=== PATIENT | female | born 1970 | race Caucasian/White ===

== ENCOUNTER 2019-06-14 11:51 | Inpatient (IN) | payer BC ==
[2019-06-14] MEDS ORDERED: AZITHROMYCIN INJ 500 MG VIAL IV ONE (12:00)
[2019-06-14] MEDS ORDERED: OSELTAMIVIR PHOSPHATE 75 MG CAPSULE PO ONE (12:00)
[2019-06-14 12:26] LABS: ABSOLUTE LYMPHOCYTES (AUTO) 0.7 10^3/uL (0.5-4.7); ABSOLUTE MONOCYTES (AUTO) 0.2 10^3/uL (0.1-1.4); ABSOLUTE NEUT (AUTO) 4.3 10^3/uL (1.7-8.2); BASOPHILS % (AUTO) 0.2 % (0-2); HEMATOCRIT 31.3 % (36.0-47.0); HEMOGLOBIN 10.1 g/dL (12.0-15.5); LYMPHOCYTES % (AUTO) 13.6 % (13-45); MEAN CORPUSCULAR HEMOGLOBIN 24.4 pg (27.0-33.4); MEAN CORPUSCULAR HGB CONC 32.3 g/dL (32.0-36.0); MEAN CORPUSCULAR VOLUME 76 fl (80-97); MONOCYTES % (AUTO) 3.9 % (3-13); PLATELET COUNT 236 10^3/uL (150-450); RED BLOOD COUNT 4.13 10^6/uL (3.72-5.28); RED CELL DISTRIBUTION WIDTH 28.1 % (11.5-14.0); SEGMENTED NEUTROPHILS % (AUTO) 82.3 % (42-78); TOTAL CELLS COUNTED % (AUTO) 100 %; VENOUS BLOOD BASE EXCESS -2.7 mmol/L; VENOUS BLOOD HCO3 22.8 mmol/L (20-32); VENOUS BLOOD PCO2 42.8 mmHg (35-63); VENOUS BLOOD PH 7.35 (7.30-7.42); WHITE BLOOD COUNT 5.2 10^3/uL (4.0-10.5)
[2019-06-14 12:38] LABS: INTERNATIONAL RATION (INR) 1.04; PROTHROMBIN TIME 13.6 SEC (11.4-15.4)
[2019-06-14] MEDS ORDERED: NORMAL SALINE 1000 ML 1,000 ML IV ONE (12:42)
[2019-06-14] MEDS ORDERED: NORMAL SALINE 1000 ML 1,000 ML IV PRN (12:42)
[2019-06-14 12:45] LABS: A TYPE INFLUENZA AG NEGATIVE (NEGATIVE); B INFLUENZA AG NEGATIVE (NEGATIVE)
--- NOTE | 2019-06-14 12:45 | RADIOLOGY REPORT (SQ) ---
EXAM DESCRIPTION: CHEST SINGLE VIEW COMPLETED DATE/TIME: 06/14/2019 12:17 pm REASON FOR STUDY: SOB COMPARISON: AP chest 04/28/2012 EXAM PARAMETERS: NUMBER OF VIEWS: One view. TECHNIQUE: Single frontal radiographic view of the chest acquired. RADIATION DOSE: NA LIMITATIONS: Obese patient, portable technique FINDINGS: LUNGS AND PLEURA: There is multifocal airspace disease around the periphery of the right l sean and throughout the left lower lobe. Differential is multifocal pneumonia versus pulmonary edema. No gross pleural effusions or pneumothorax. MEDIASTINUM AND HILAR STRUCTURES: No masses. Contour normal. HEART AND VASCULAR STRUCTURES: No cardiomegaly BONES: No acute findings. HARDWARE: None in the chest. OTHER: No other significant finding. IMPRESSION: Diffuse bilateral airspace disease right greater than left worrisome for pneumonia. Asy mmetric pulmonary edema could mimic this appearance TECHNICAL DOCUMENTATION: JOB ID: [id number] [employer]- All Rights Reserved Reading location - IP/workstation name: [email or web address]
[2019-06-14 12:53] LABS: ALBUMIN 3.3 g/dL (3.5-5.0); ALKALINE PHOSPHATASE 210 U/L (38-126); ANION GAP 10 (5-19); ASPARTATE AMINO TRANSFERASE 70 U/L (14-36); BILIRUBIN,DIRECT 0.2 mg/dL (0.0-0.4); BILIRUBIN,TOTAL 0.4 mg/dL (0.2-1.3); BLOOD UREA NITROGEN 19 mg/dL (7-20); CALCIUM 8.3 mg/dL (8.4-10.2); CARBON DIOXIDE 25 mmol/L (22-30); CHLORIDE 107 mmol/L (98-107); GLUCOSE 87 mg/dL (75-110); POTASSIUM 4.5 mmol/L (3.6-5.0); TOTAL PROTEIN 6.8 g/dL (6.3-8.2)
[2019-06-14 13:00] LABS: TROPONIN I 0.013 ng/mL
[2019-06-14] MEDS ORDERED: CEFTRIAXONE 1 GM/D5W RTU 1 GM/50 ML RTUPB IV ONE (13:00)
[2019-06-14 13:02] LABS: HYPOCHROMASIA 1+; OVALOCYTES 1+; PLATELET COMMENT ADEQUATE; POIKILOCYTOSIS 1+; TOXIC GRANULATION 1+
[2019-06-14] MEDS ORDERED: ONDANSETRON HCL INJ/PF 4 MG/2 ML SDV IV ONE (13:09)
[2019-06-14] MEDS ORDERED: RINGERS SOLUTION,LACTATED 1,000 ML IV ONE (13:09)
--- NOTE | 2019-06-14 13:13 | ER Document Report ---
ED General - General Chief Complaint: Breathing Difficulty Stated Complaint: TROUBLE BREATHING Time Seen by Provider: 06/14/19 11:57 Notes: 48-year-old female history of chronic pain on methadone brought in by EMS for respiratory distress and hypoxia. Been having cold-like symptoms with cough congestion and shortness of breath about a week but worse today she called 911. Found to hypoxic in the 80s. Smokes. Denies a history of CHF COPD. Placed on BiPAP by EMS. - Related Data Allergies/Adverse Reactions: No Known Allergies Allergy (Verified 04/28/12 17:16) Past Medical History - General Information source: Patient - Social History Smoking Status: Current Every Day Smoker Family History: None - Past Medical History Cardiac Medical History: Reports: Hx Hypertension Renal/ Medical History: Reports: Hx Ovarian Cysts Past Surgical History: Reports: Hx Gynecologic Surgery Review of Systems - Review of Systems Notes: REVIEW OF SYSTEMS Cannot obtained: Acuity PHYSICAL EXAMINATION General: Distressed and ill Head: Atraumatic, normocephalic ENT: Mouth normal, oropharynx dry no exudates or tonsillar enlargement Eyes: Conjunctiva normal, pupils equal, lids normal Neck: No JVD, supple, no guarding CVS: Normal rate, regular rhythm, no murmurs Resp: Tachypneic with diminished breath sounds at both bases GI: Nondistended, soft, no tenderness to palpation, no rebound or guarding Ext: No deformities, no edema, normal range of motion in upper and lower ext Back: No CVA or midline TTP Skin: No rash, warm Lymphatic: No lymphadeopathy noted Neuro: Awake responds to loud voice Physical Exam - Vital signs Vitals: Pulse Ox 99 06/14/19 11:57 Course - Re-evaluation Re-evalutation: 06/14/19 15:12 Respiratory distress with hypoxia in the setting of URI symptoms concerning for pneumonia. No signs of heart failure volume overload Transition medially to BiPAP. Chest x-ray shows multifocal infiltrates Cultures obtained Rocephin is a third dose Given IV fluids after BNP came back normal. The patient was observed and initially took her BiPAP mask off complaining of nausea. Given Zofran. Mental status was intact blood gas was good. She was placed back on BiPAP eventually after she became slightly hypoxic on nasal cannula. She was discussed with hospitalist Dr. Fortune for admission to the [facility]. 06/15/19 07:44 Rechecked pt. . Alert, sat wnl on bipap, effort wnl. Sl hypotensive again. will cont fluids and obs. Seen with Dr. Hernandez who will be admitting. - Vital Signs Vital signs: Temp Pulse Resp BP Pulse Ox 98.8 F 18 90/51 L 95 06/14/19 21:39 06/15/19 07:08 06/15/19 07:08 06/15/19 07:08 - Laboratory Result Diagrams: 06/15/19 06:23 06/15/19 06:23 Laboratory results interpreted by me: 06/14/19 06/14/19 06/14/19 11:57 12:03 12:03 Hgb 10.1 L Hct 31.3 L MCV 76 L MCH 24.4 L RDW 28.1 H Seg Neutrophils % 82.3 H Calcium 8.3 L AST 70 H Alkaline Phosphatase 210 H NT-Pro-B Natriuret Pep 228 H Albumin 3.3 L - Diagnostic Test Radiology reviewed: Pending, Image reviewed, Reports reviewed - EKG Interpretation by Me EKG shows normal: Sinus rhythm Rate: Normal Rhythm: NSR Critical Care Note - Critical Care Note Total time excluding time spent on procedures (mins): 32 Comments: The above patient is critically ill. Not including procedures, but including direct re-evaluations, speaking with patient and/or consultants, interpreting results, and documenting, I spent the total amount of minute listed listed above on critical care time Discharge - Discharge Clinical Impression: Bilateral pneumonia Qualifiers: Pneumonia type: due to unspecified organism Lung location: unspecified part of lung Qualified Code(s): J18.9 - Pneumonia, unspecified organism Condition: Critical Disposition: ADMITTED INPATIENT Admitting Provider: Micki (Hospitalist) Unit Admitted: [facility]
[2019-06-14] MEDS ORDERED: ZOLPIDEM TARTRATE 5 MG TABLET PO PRN (15:31)
[2019-06-14] MEDS ORDERED: IPRATROPIUM/ALBUTEROL 0.5-2.5 MG/3 ML AMPUL NEB PRN (15:31)
--- NOTE | 2019-06-14 15:55 | PDOC H&P ---
History of Present Illness Admission Date/PCP: 06/14/19 13:55 JS ANDERSON PA-C Patient complains of: Difficulty breathing or shortness of breath as well as generalized malaise for the last 3 days. History of Present Illness: LUISES HERNANDEZ is a 48 year old female Patient presents to the emergency room with complaints of difficulty breathing and shortness of breath. She states she had been having some congestion-like symptoms associated with cough, shortness of breath so she called 911. She was found to be hypoxic with oxygen saturation in the 80s. She was placed on BiPAP by EMS and continues on BiPAP at the time of my evaluation. She denies any fe carolyn or chest pain. She denies any nausea vomiting rotations or any other pertinent symptoms. He does have a history of smoking, about a pack a day and does use methadone for chronic pain. She denies history of IV drug abuse Past Medical History Cardiac Medical History: Reports: Hypertension Past Surgical History Past Surgical History: Reports: None Social History Information Source: Patient Lives with: Family Smoking Status: Current Every Day Smoker Electronic Cigarette use?: No Frequency of Alcohol Use: Occasional Drugs: Methadone - Advance Directive Resuscitation Status: Full Code Family History Family History: None Parental Family History Reviewed: Yes Children Family History Reviewed: Yes Sibling(s) Family History Reviewed.: Yes Medication/Allergy Home Medications: Methadone HCl [Dolophine 10 mg Tablet] 89 mg PO DAILY 06/14/19 Allergies/Adverse Reactions: No Known Allergies Allergy (Verified 04/28/12 17:16) Review of Systems Constitutional: PRESENT: fatigue, weakness Cardiovascular: PRESENT: dyspnea on exertion. ABSENT: chest pain Respiratory: PRESENT: cough, dyspnea Physical Exam Vital Signs: Temp Pulse Resp BP Pulse Ox 19 118/77 99 06/14/19 14:05 06/14/19 13:02 06/14/19 14:05 Intake & Output 06/13/19 06/14/19 06/15/19 06:59 06:59 06:59 Intake Total 50 Balance 50 Weight 108.499 kg General appearance: PRESENT: no acute distress, well-developed Head exam: PRESENT: atraumatic Neck exam: PRESENT: full ROM. ABSENT: JVD, tenderness Respiratory exam: PRESENT: decreased breath sounds, unlabored. ABSENT: rhonchi, tachypnea, wheezes GI/Abdominal exam: PRESENT: normal bowel sounds, soft. ABSENT: tenderness Musculoskeletal exam: PRESENT: ambulatory Neurological exam: PRESENT: alert, awake, oriented to time, oriented to situation, CN II-XII grossly intact Results Laboratory Results: 06/14/19 12:03 06/14/19 11:57 06/14/19 06/14/19 06/14/19 11:57 12:03 12:03 WBC 5.2 RBC 4.13 Hgb 10.1 L Hct 31.3 L MCV 76 L MCH 24.4 L MCHC 32.3 RDW 28.1 H Plt Count 236 Seg Neutrophils % 82.3 H VBG pH 7.35 VBG pCO2 42.8 VBG HCO3 22.8 VBG Base Excess -2.7 Sodium 141.8 Potassium 4.5 Chloride 107 Carbon Dioxide 25 Anion Gap 10 BUN 19 Creatinine 0.72 Est GFR ( Amer) > 60 Glucose 87 Lactic Acid Calcium 8.3 L Total Bilirubin 0.4 AST 70 H Alkaline Phosphatase 210 H Total Protein 6.8 Albumin 3.3 L 06/14/19 12:03 WBC RBC Hgb Hct MCV MCH MCHC RDW Plt Count Seg Neutrophils % VBG pH VBG pCO2 VBG HCO3 VBG Base Excess Sodium Potassium Chloride Carbon Dioxide Anion Gap BUN Creatinine Est GFR ( Amer) Glucose Lactic Acid 1.7 Calcium Total Bilirubin AST Alkaline Phosphatase Total Protein Albumin 06/14/19 12:03 Troponin I 0.013 NT-Pro-B Natriuret Pep 228 H Impressions: Chest X-Ray 06/14/19 00:00 IMPRESSION: Diffuse bilateral airspace disease right greater than left worrisome for pneumonia. Asymmetric pulmonary edema could mimic this appearance Assessment and Plan - Diagnosis (1) Acute hypoxemic respiratory failure Is this a current diagnosis for this admission?: Yes Plan: Secondary to underlying pneumonia. Chest x-ray shows bilateral airspace disease. This is presumed to be pneumonitis likely atypical. Patient remains on BiPAP. We will continue with current trend (2) Methadone use Is this a current diagnosis for this admission?: Yes Plan: Patient has a history of methadone use. Is a history of prior drug abuse. We will continue with methadone (3) Bilateral pneumonia Qualifiers: Pneumonia type: due to unspecified organism Lung location: unspecified part of lung Qualified Code(s): J18.9 - Pneumonia, unspecified organism Is this a current diagnosis for this admission?: Yes Plan: Lateral airspace disease as per chest x-ray however patient symptoms seem to be out of proportion to her chest x-ray findings. We will go ahead and obtain a CT of the chest for further evaluation - Plan Summary Summary: Lactic acid level is 1.7, and BNP is 228, troponin is negative, and EKG shows a normal sinus rhythm with no acute changes. The scan of the chest will be obtained for further evaluation and further interventions are found will depend on hospital course. - Time Time Spent with patient: 25-34 minutes Medications reviewed and adjusted accordingly: Yes Anticipated discharge: Home Within: within 72 hours - Inpatient Certification Based on my medical assessment, after consideration of the patient's comorbiditi es, presenting symptoms, or acuity I expect that the services needed warrant INPATIENT care.: Yes I certify that my determination is in accordance with my understanding of [facility]'s requirements for reasonable and necessary INPATIENT services [42 CFR 412.3e].: Yes Medical Necessity: Need for IV Antibiotics, Risk of Diagnosis Which Will Require Inpatient Eval/Care/Monitoring
[2019-06-14] MEDS: NORMAL SALINE 1000 ML 1,000 ML IV PRN (18:38)
--- NOTE | 2019-06-14 19:38 | EKG REPORT ---
SEVERITY:- BORDERLINE ECG - SINUS RHYTHM BORDERLINE T ABNORMALITIES, ANTERIOR LEADS : Confirmed by: Ro Pardo MD 14-Jun-2019 19:37:40
[2019-06-14] MEDS: ONDANSETRON HCL INJ/PF 4 MG/2 ML SDV IV PRN (21:49)
[2019-06-14] MEDS: FAMOTIDINE 20 MG TABLET PO SCH (22:32)
[2019-06-14] MEDS: ACETAMINOPHEN 325 MG TABLET PO PRN (22:32)
[2019-06-14] MEDS: GUAIFENESIN 600 MG TABLET.SA PO SCH (22:32)
[2019-06-15] MEDS: NORMAL SALINE 1000 ML 1,000 ML IV PRN ×2 (04:16→14:10)
[2019-06-15 06:53] LABS: ANION GAP 9 (5-19); BLOOD UREA NITROGEN 17 mg/dL (7-20); CALCIUM 7.9 mg/dL (8.4-10.2); CARBON DIOXIDE 25 mmol/L (22-30); CHLORIDE 110 mmol/L (98-107); POTASSIUM 4.3 mmol/L (3.6-5.0)
[2019-06-15 06:54] LABS: ABSOLUTE LYMPHOCYTES (AUTO) 0.7 10^3/uL (0.5-4.7); ABSOLUTE MONOCYTES (AUTO) 0.2 10^3/uL (0.1-1.4); ABSOLUTE NEUT (AUTO) 2.9 10^3/uL (1.7-8.2); BASOPHILS % (AUTO) 0.3 % (0-2); EOSINOPHILS % (AUTO) 0.3 % (0-6); GLUCOSE 57 mg/dL (75-110); HEMATOCRIT 27.3 % (36.0-47.0); HEMOGLOBIN 8.7 g/dL (12.0-15.5); MEAN CORPUSCULAR HEMOGLOBIN 24.7 pg (27.0-33.4); MEAN CORPUSCULAR VOLUME 77 fl (80-97); MONOCYTES % (AUTO) 6.3 % (3-13); PLATELET COUNT 226 10^3/uL (150-450); RED BLOOD COUNT 3.52 10^6/uL (3.72-5.28); RED CELL DISTRIBUTION WIDTH 28.7 % (11.5-14.0); SEGMENTED NEUTROPHILS % (AUTO) 74.1 % (42-78); TOTAL CELLS COUNTED % (AUTO) 100 %; WHITE BLOOD COUNT 3.9 10^3/uL (4.0-10.5)
[2019-06-15] MEDS ORDERED: DEXTROSE 50%-WATER 25 GM/50 ML DISP.SYRIN IV ONE (06:59)
[2019-06-15 07:39] LABS: ANISOCYTOSIS 3+; BURR CELLS 1+; HYPOCHROMASIA SLIGHT; OVALOCYTES 1+; POIKILOCYTOSIS 2+; POLYCHROMASIA SLIGHT; SCHISTOCYTES SLIGHT; TEAR DROP CELLS SLIGHT; TOXIC GRANULATION SLIGHT
[2019-06-15 07:40] LABS: PLATELET COMMENT ADEQUATE
[2019-06-15] MEDS: ONDANSETRON HCL INJ/PF 4 MG/2 ML SDV IV PRN (08:59)
[2019-06-15] MEDS ORDERED: METHADONE HCL 10 MG TABLET PO SCH (10:00)
[2019-06-15] MEDS ORDERED: CEFTRIAXONE 1 GM/D5W RTU 1 GM/50 ML RTUPB IV SCH (10:00)
[2019-06-15] MEDS: METHADONE HCL 10 MG TABLET PO SCH (10:05)
[2019-06-15] MEDS: GUAIFENESIN 600 MG TABLET.SA PO SCH ×2 (10:05→22:40)
[2019-06-15] MEDS: FAMOTIDINE 20 MG TABLET PO SCH ×2 (10:06→22:40)
[2019-06-15] MEDS: DOCUSATE SODIUM 100 MG CAPSULE PO SCH (10:06)
[2019-06-15] MEDS: ENOXAPARIN SODIUM INJ 40 MG/0.4 ML DISP.SYRIN SUBCUT SCH (10:07)
--- NOTE | 2019-06-15 10:22 | PDOC PROGRESS REPORT ---
Subjective Progress Note for:: 06/15/19 Subjective:: Patient admitted on June 14 with acute hypoxemic respiratory failure. She still is very hypoxemic. She remains on BiPAP apparently though she has had difficulty using the BiPAP. She remains somewhat hypotensive. She denies any chest pain nausea vomiting. She remains in the emergency department awaiting transfer to [facility] however after further evaluation today I think this patient will benefit from a higher level of care, that is ICU as she remains hypotensive as well as hypoxemic. Attempt to remove her BiPAP today showed a drop in her oxygen saturation to the 70s. A CT scan of the chest had been ordered yesterday however somehow this was not done. I have reordered CTA instead due to the profund hypoxemia. No indication of DVT clinically Reason For Visit: ACUTE HYPOXEMIC RESPIRATORY FAILURE, COMMUNITY Physical Exam Vital Signs: Temp Pulse Resp BP Pulse Ox 98.8 F 66 16 104/71 91 L 06/14/19 21:39 06/15/19 08:02 06/15/19 09:31 06/15/19 09:31 06/15/19 09:31 Intake & Output 06/14/19 06/15/19 06/16/19 06:59 06:59 06:59 Intake Total 3013 Output Total 200 Balance 2813 Weight 108.499 kg General appearance: PRESENT: no acute distress, cooperative, morbidly obese, obese Head exam: PRESENT: atraumatic Respiratory exam: PRESENT: decreased breath sounds, unlabored. ABSENT: wheezes GI/Abdominal exam: PRESENT: soft. ABSENT: tenderness Extremities exam: ABSENT: calf tenderness, joint swelling Neurological exam: PRESENT: alert, awake, oriented to person, oriented to place, oriented to time Psychiatric exam: PRESENT: anxious Results Laboratory Results: 06/15/19 06:23 06/15/19 06:23 06/14/19 06/14/19 06/14/19 11:57 12:03 12:03 WBC 5.2 RBC 4.13 Hgb 10.1 L Hct 31.3 L MCV 76 L MCH 24.4 L MCHC 32.3 RDW 28.1 H Plt Count 236 Seg Neutrophils % 82.3 H VBG pH 7.35 VBG pCO2 42.8 VBG HCO3 22.8 VBG Base Excess -2.7 Sodium 141.8 Potassium 4.5 Chloride 107 Carbon Dioxide 25 Anion Gap 10 BUN 19 Creatinine 0.72 Est GFR ( Amer) > 60 Glucose 87 Lactic Acid Calcium 8.3 L Total Bilirubin 0.4 AST 70 H Alkaline Phosphatase 210 H Total Protein 6.8 Albumin 3.3 L 06/14/19 06/14/19 06/14/19 12:03 15:44 19:00 WBC RBC Hgb Hct MCV MCH MCHC RDW Plt Count Seg Neutrophils % VBG pH VBG pCO2 VBG HCO3 VBG Base Excess Sodium Potassium Chloride Carbon Dioxide Anion Gap BUN Creatinine Est GFR ( Amer) Glucose Lactic Acid 1.7 0.8 0.8 Calcium Total Bilirubin AST Alkaline Phosphatase Total Protein Albumin 06/15/19 06/15/19 06:23 06:23 WBC 3.9 L RBC 3.52 L Hgb 8.7 L Hct 27.3 L MCV 77 L MCH 24.7 L MCHC 32.0 RDW 28.7 H Plt Count 226 Seg Neutrophils % 74.1 VBG pH VBG pCO2 VBG HCO3 VBG Base Excess Sodium 143.7 Potassium 4.3 Chloride 110 H Carbon Dioxide 25 Anion Gap 9 BUN 17 Creatinine 0.62 Est GFR ( Amer) > 60 Glucose 57 L Lactic Acid Calcium 7.9 L Total Bilirubin AST Alkaline Phosphatase Total Protein Albumin 06/14/19 12:03 Troponin I 0.013 NT-Pro-B Natriuret Pep 228 H Impressions: Chest X-Ray 06/14/19 00:00 IMPRESSION: Diffuse bilateral airspace disease right greater than left worrisome for pneumonia. Asymmetric pulmonary edema could mimic this appearance Assessment and Plan - Diagnosis (1) Acute hypoxemic respiratory failure Is this a current diagnosis for this admission?: Yes Plan: Patient remains hypoxemic, precise etiology is not clear. We will obtain a CTA to rule out pulmonary embolism. The chest x-ray does suggest bilateral pneumonia however patient's symptoms seem to be out of proportion to the chest x-ray findings. I also think patient will benefit from an ICU stay under the care of the unix systems administrator and so the bed request has been changed to ICU (2) Methadone use Is this a current diagnosis for this admission?: Yes Plan: For chronic pain we may have to hold the methadone for now given her respiratory status (3) Bilateral pneumonia Qualifiers: Pneumonia type: due to unspecified organism Lung location: unspecified part of lung Qualified Code(s): J18.9 - Pneumonia, unspecified organism Is this a current diagnosis for this admission?: Yes Plan: Not really convinced that her symptoms are purely due to pneumonia however we will continue with the current antibiotics. Will obtain a CTA to rule out PE and will obtain an echocardiogram also for further evaluation - Plan Summary Summary: Lactic acid level is 1.7, and BNP is 228, troponin is negative, and EKG shows a normal sinus rhythm with no acute changes. Transfer to ICU suggested for better management - Time Time Spent with patient: 25-34 minutes Total Critical Time (Minutes): 15 Medications reviewed and adjusted accordingly: Yes
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
[2019-06-15 11:45] LABS: ARTERIAL BLOOD BASE EXCESS -2.7 mmol/L; ARTERIAL BLOOD H2CO3 1.23 mmol/L (1.05-1.35); ARTERIAL BLOOD HCO3 22.6 mmol/L (20-24); ARTERIAL BLOOD O2 SATURATION 89.7 % (94-98); ARTERIAL BLOOD PH 7.36 (7.35-7.45); ARTERIAL BLOOD PO2 59.2 mmHg (80-100); ARTERIAL BLOOD TOTAL CO2 23.8 mmol/L (21-25)
[2019-06-15 11:46] LABS: ARTERIAL BLOOD FIO2 65%
[2019-06-15] MEDS: LORAZEPAM INJ 2 MG/1 ML VIAL IV PRN (12:19)
--- NOTE | 2019-06-15 13:10 | RADIOLOGY REPORT (SQ) ---
EXAM DESCRIPTION: CTA CHEST COMPLETED DATE/TIME: 06/15/2019 12:45 pm REASON FOR STUDY: Acute hypoxemic Respiratory Failure COMPARISON: Same day radiograph TECHNIQUE: CT scan of the chest performed using helical scanning technique with dynamic intravenous contrast injection. Images reviewed with lung, soft tissue and bone windows. Reconstructed coronal and sagittal MPR images reviewed. Additional 3 dimensional post-processing performed to develop Maximal Intensity Projection images (NC P). All images stored on PACS. All CT scanners at this facility use dose modulation, iterative reconstruction, and/or weight based d osing when appropriate to reduce radiation dose to as low as reasonably achievable (ALARA). [facility]: Dose Right [facility]: CareDose [facility]: Dose Right [facility]: Teradose 4D [facility]: [facility] CONTRAST TYPE AND DOSE: contrast/concentration: Isovue 350.00 mg/ml; Total Contrast Delivered: 75.0 ml; Total Saline Delivered: 70.0 ml Contrast bolus optimized for the pulmonary arteries. Not diagnostic for the aorta. RENAL FUNCTION: Creatinine 0.62 RADIATION DOSE: CT Rad equipment meets quality standard of care and radiation dose reduction techniq ues were employed. CTDIvol: 34.7 - 66.1 mGy. DLP: 1019 mGy-cm. . LIMITATIONS: None. FINDINGS: LUNGS AND PLEURA: There is multifocal consolidation and ground-glass attenuation greatest within the bilateral lower lobes. No large pleural effusion. No pneumothorax. AORTA AND GREAT VESSELS: No aneurysm. Contrast bolus not optimized for the aorta. HEART: No pericardial effusion. No significant coronary artery calcifications. PULMONARY ARTERIES: No emboli visualized in the main pulmonary arteries or the segmental branches. HILAR AND MEDIASTINAL STRUCTURES: No identified masses or abnormal nodes. HARDWARE: None in the chest. Cholecystectomy clips. UPPER ABDOMEN: No significant findings. Limited exam. THYROID AND OTHER SOFT TISSUES: No masses. No adenopathy. BONES: No acute or significant finding. 3D MIPS: Confirm above findings. OTHER: No other significant finding. IMPRESSION: 1. Multifocal consolidation and ground-glass opacities, greatest within the bilateral l ower lobes suggestive of multifocal pneumonia. No significant effusion. 2. No pulmonary embolus. COMMENT: Quality ID # [id number]: Final reports with documentation of one or more dose reduction techniques (e.g., Automated exposure control, adjustment of the mA and/or kV according to patient size, use of iterative reconstruction technique) TECHNICAL DOCUMENTATION: JOB ID: [id number] [employer]- [employer]- All Rights Reserved Reading location - IP/workstation name: [email or web address]
[2019-06-15] MEDS: AZITHROMYCIN 500 MG in DEXTROSE 5%-WATER 250 ML IV SCH (14:10)
[2019-06-15 21:26] LABS: APPEARANCE,URINE CLEAR; BILIRUBIN,URINE NEGATIVE (NEGATIVE); COLOR,URINE YELLOW; GLUCOSE, URINE NEGATIVE (NEGATIVE); KETONES,URINE 20 mg/dL (NEGATIVE); PROTEIN,URINE 30 mg/dL (NEGATIVE)
[2019-06-15 21:39] LABS: URINE AMPHETAMINES SCREEN NEGATIVE; URINE BARBITURATES SCREEN NEGATIVE; URINE BENZODIAZEPINES SCREEN NEGATIVE; URINE COCAINE SCREEN NEGATIVE; URINE MARIJUANA (THC) SCREEN NEGATIVE; URINE PHENCYCLIDINE SCREEN NEGATIVE
[2019-06-15 22:18] LABS: URINE METHADONE SCREEN UNCONFIRMED POSITIVE
[2019-06-16] MEDS: LORAZEPAM INJ 2 MG/1 ML VIAL IV PRN ×2 (02:52→19:56)
[2019-06-16] MEDS: ACETAMINOPHEN 325 MG TABLET PO PRN (02:52)
[2019-06-16] MEDS: NORMAL SALINE 1000 ML 1,000 ML IV PRN (03:07)
[2019-06-16 07:12] LABS: ABSOLUTE LYMPHOCYTES (AUTO) 0.6 10^3/uL (0.5-4.7); ABSOLUTE MONOCYTES (AUTO) 0.4 10^3/uL (0.1-1.4); ABSOLUTE NEUT (AUTO) 4.7 10^3/uL (1.7-8.2); BASOPHILS % (AUTO) 0.1 % (0-2); EOSINOPHILS % (AUTO) 0.1 % (0-6); HEMOGLOBIN 8.1 g/dL (12.0-15.5); LYMPHOCYTES % (AUTO) 9.7 % (13-45); MEAN CORPUSCULAR HEMOGLOBIN 24.5 pg (27.0-33.4); MEAN CORPUSCULAR HGB CONC 32.2 g/dL (32.0-36.0); MEAN CORPUSCULAR VOLUME 76 fl (80-97); MONOCYTES % (AUTO) 7.9 % (3-13); PLATELET COUNT 240 10^3/uL (150-450); RED BLOOD COUNT 3.29 10^6/uL (3.72-5.28); RED CELL DISTRIBUTION WIDTH 28.7 % (11.5-14.0); SEGMENTED NEUTROPHILS % (AUTO) 82.2 % (42-78); TOTAL CELLS COUNTED % (AUTO) 100 %; WHITE BLOOD COUNT 5.7 10^3/uL (4.0-10.5)
[2019-06-16 07:25] LABS: ANION GAP 7 (5-19); BLOOD UREA NITROGEN 12 mg/dL (7-20); CALCIUM 7.8 mg/dL (8.4-10.2); CARBON DIOXIDE 23 mmol/L (22-30); CHLORIDE 112 mmol/L (98-107); POTASSIUM 3.9 mmol/L (3.6-5.0)
[2019-06-16 07:28] LABS: GLUCOSE 56 mg/dL (75-110)
[2019-06-16] MEDS ORDERED: DEXTROSE 50%-WATER 25 GM/50 ML DISP.SYRIN IV ONE ×2 (07:31→08:00)
[2019-06-16] MEDS ORDERED: DEXTROSE 5%-NORMAL SALINE 1,000 ML IV PRN ×2 (08:11→12:35)
[2019-06-16 08:13] LABS: ANISOCYTOSIS 4+; HYPOCHROMASIA SLIGHT; OVALOCYTES 1+; PLATELET COMMENT ADEQUATE; POIKILOCYTOSIS 1+; TEAR DROP CELLS SLIGHT
[2019-06-16 08:55] LABS: ARTERIAL BLOOD BASE EXCESS -1.6 mmol/L; ARTERIAL BLOOD FIO2 75%; ARTERIAL BLOOD HCO3 22.7 mmol/L (20-24); ARTERIAL BLOOD O2 SATURATION 94.2 % (94-98); ARTERIAL BLOOD PCO2 36.7 mmHg (35-45); ARTERIAL BLOOD PH 7.41 (7.35-7.45); ARTERIAL BLOOD PO2 69.4 mmHg (80-100); ARTERIAL BLOOD TOTAL CO2 23.9 mmol/L (21-25)
[2019-06-16] MEDS ORDERED: CEFEPIME 2 GM/D5W RTU 2 GM/50 ML RTUPB IV SCH (10:00)
[2019-06-16] MEDS: METHADONE HCL 10 MG TABLET PO SCH (11:11)
[2019-06-16] MEDS: DOCUSATE SODIUM 100 MG CAPSULE PO SCH (11:11)
[2019-06-16] MEDS: GUAIFENESIN 600 MG TABLET.SA PO SCH ×2 (11:12→23:00)
[2019-06-16] MEDS: FAMOTIDINE 20 MG TABLET PO SCH ×2 (11:12→23:02)
[2019-06-16] MEDS: ENOXAPARIN SODIUM INJ 40 MG/0.4 ML DISP.SYRIN SUBCUT SCH (11:13)
[2019-06-16] MEDS: CEFEPIME HCL 2 GM in DEXTROSE 5%-WATER 50 ML IV SCH ×2 (11:13→23:06)
[2019-06-16] MEDS: AZITHROMYCIN 500 MG in DEXTROSE 5%-WATER 250 ML IV SCH (12:05)
--- NOTE | 2019-06-16 13:18 | PDOC PROGRESS REPORT ---
Subjective Progress Note for:: 06/16/19 Subjective:: Patient continues to be hypoxemic and she is currently on 75% FiO2 on BiPAP. She is somewhat tachypneic. She actually is more responsive today and was able to converse with me through her mask. She states that she is hungry. He thinks her breathing may be better however attempts to remove mask has resulted in desaturation down to 70%. CT scan yesterday did confirm multifocal pneumonia however no further evidence of any acute illness. There is no PE, pleural effusion or any other pertinent findings. Reason For Visit: ACUTE HYPOXEMIC RESPIRATORY FAILURE, COMMUNITY Physical Exam Vital Signs: Temp Pulse Resp BP Pulse Ox 98.4 F 86 28 H 103/63 92 06/16/19 11:59 06/16/19 11:59 06/16/19 12:06 06/16/19 11:59 06/16/19 12:06 Intake & Output 06/15/19 06/16/19 06/17/19 06:59 06:59 06:59 Intake Total 3013 2540 Output Total 200 700 Balance 2813 1840 Weight 108.499 kg 110.5 kg General appearance: PRESENT: no acute distress, well-developed, well-nourished, other - BiPAP mask Head exam: PRESENT: atraumatic, normocephalic Eye exam: PRESENT: conjunctiva pink, EOMI, PERRLA. ABSENT: scleral icterus Ear exam: PRESENT: normal external ear exam Neck exam: ABSENT: carotid bruit, JVD, lymphadenopathy, thyromegaly Respiratory exam: PRESENT: decreased breath sounds, tachypnea. ABSENT: rales, rhonchi, wheezes Cardiovascular exam: PRESENT: RRR, +S1, +S2. ABSENT: diastolic murmur, rubs, systolic murmur Pulses: PRESENT: normal dorsalis pedis pul Vascular exam: PRESENT: normal capillary refill GI/Abdominal exam: PRESENT: normal bowel sounds, soft. ABSENT: distended, guarding, mass, organolmegaly, rebound, tenderness Rectal exam: PRESENT: deferred Extremities exam: PRESENT: full ROM. ABSENT: calf tenderness, clubbing, pedal edema Neurological exam: PRESENT: alert, awake, oriented to person, oriented to place, oriented to situation. ABSENT: motor sensory deficit Psychiatric exam: ABSENT: homicidal ideation, suicidal ideation Skin exam: PRESENT: dry, intact, warm. ABSENT: cyanosis, rash Results Laboratory Results: 06/16/19 05:55 06/16/19 05:55 06/15/19 06/16/19 06/16/19 20:55 05:55 05:55 WBC 5.7 RBC 3.29 L Hgb 8.1 L Hct 25.0 L MCV 76 L MCH 24.5 L MCHC 32.2 RDW 28.7 H Plt Count 240 Seg Neutrophils % 82.2 H Carbonic Acid HCO3/H2CO3 Ratio ABG pH ABG pCO2 ABG pO2 ABG HCO3 ABG O2 Saturation ABG Base Excess FiO2 Sodium 141.9 Potassium 3.9 Chloride 112 H Carbon Dioxide 23 Anion Gap 7 BUN 12 Creatinine 0.48 L Est GFR ( Amer) > 60 Glucose 56 L Calcium 7.8 L Urine Color YELLOW Urine Appearance CLEAR Urine pH 5.0 Ur Specific [place] 1.040 Urine Protein 30 H Urine Glucose (UA) NEGATIVE Urine Ketones 20 H Urine Blood MODERATE H Urine RBC (Auto) >182 06/16/19 08:38 WBC RBC Hgb Hct MCV MCH MCHC RDW Plt Count Seg Neutrophils % Carbonic Acid 1.10 HCO3/H2CO3 Ratio 20:1 ABG pH 7.41 ABG pCO2 36.7 ABG pO2 69.4 L ABG HCO3 22.7 ABG O2 Saturation 94.2 ABG Base Excess -1.6 FiO2 75% Sodium Potassium Chloride Carbon Dioxide Anion Gap BUN Creatinine Est GFR ( Amer) Glucose Calcium Urine Color Urine Appearance Urine pH Ur Specific [place] Urine Protein Urine Glucose (UA) Urine Ketones Urine Blood Urine RBC (Auto) 06/14/19 12:03 Troponin I 0.013 NT-Pro-B Natriuret Pep 228 H Impressions: Chest X-Ray 06/14/19 00:00 IMPRESSION: Diffuse bilateral airspace disease right greater than left worrisome for pneumonia. Asymmetric pulmonary edema could mimic this appearance Chest/Abdomen CTA 06/15/19 00:00 IMPRESSION: 1. Multifocal consolidation and ground-glass opacities, greatest within the bilateral lower lobes suggestive of multifocal pneumonia. No significant effusion. 2. No pulmonary embolus. Assessment and Plan - Diagnosis (1) Acute hypoxemic respiratory failure Is this a current diagnosis for this admission?: Yes Plan: Patient's respiratory status remains to be pretty tenuous. She is currently on 75% FiO2 on BiPAP. ABG done actually is. Benign however she is still PO2 of 69% on 75% FiO2. I did consult network pricing consultant. He suggests that patient should be transferred to ICU for close monitoring. I did make him aware I had consulted horse race timer on June 15 and he declined to admit this patient to ICU. After talking to Dr. Pérez I called the horse race timer again and made him aware of patient's status. I made my opinion clear that this patient belongs to ICU so that she can be closely monitored by horse race timer in the intensive care unit. This is also Dr. 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 No significant effusions. Antibiotics was changed to cefepime this morning. We will also continue with Zithromax for atypical coverage pending further evaluation. Patient also noted to be anemic this morning. Hemoglobin on admission was 10.1 and is currently 8.1 she is not acidotic or alkalotic and pH on ABG was 7.4. I believe patient needs critical care management either in this hospital or somewhere else - Plan Summary Summary: Lactic acid level is 1.7, and BNP is 228, troponin is negative, and EKG shows a normal sinus rhythm with no acute changes. Transfer to ICU suggested for better management - Time Time Spent with patient: 25-34 minutes Medications reviewed and adjusted accordingly: Yes
[2019-06-16 14:09] LABS: HEMATOCRIT 26.2 % (36.0-47.0); HEMOGLOBIN 8.4 g/dL (12.0-15.5); MEAN CORPUSCULAR HEMOGLOBIN 24.5 pg (27.0-33.4); MEAN CORPUSCULAR HGB CONC 32.1 g/dL (32.0-36.0); MEAN CORPUSCULAR VOLUME 76 fl (80-97); PLATELET COUNT 249 10^3/uL (150-450); RED BLOOD COUNT 3.42 10^6/uL (3.72-5.28); RED CELL DISTRIBUTION WIDTH 27.9 % (11.5-14.0); WHITE BLOOD COUNT 7.2 10^3/uL (4.0-10.5)
[2019-06-16 14:19] LABS: ALBUMIN 2.7 g/dL (3.5-5.0); ALKALINE PHOSPHATASE 183 U/L (38-126); ANION GAP 7 (5-19); ASPARTATE AMINO TRANSFERASE 53 U/L (14-36); BILIRUBIN,DIRECT 0.3 mg/dL (0.0-0.4); BILIRUBIN,TOTAL 0.3 mg/dL (0.2-1.3); BLOOD UREA NITROGEN 12 mg/dL (7-20); CALCIUM 7.9 mg/dL (8.4-10.2); CARBON DIOXIDE 26 mmol/L (22-30); CHLORIDE 110 mmol/L (98-107); GLUCOSE 84 mg/dL (75-110); POTASSIUM 3.6 mmol/L (3.6-5.0); TOTAL PROTEIN 6.3 g/dL (6.3-8.2)
[2019-06-16 14:37] LABS: ABSOLUTE LYMPHOCYTES# (MANUAL) 0.6 10^3/uL (0.5-4.7); ABSOLUTE MONOCYTES # (MANUAL) 0.4 10^3/uL (0.1-1.4); BASOPHILS % (MANUAL) 0 % (0-2); EOSINOPHILS % (MANUAL) 0 % (0-6); LYMPHOCYTES % (MANUAL) 9 % (13-45); MONOCYTES % (MANUAL) 6 % (3-13); SEGMENTED NEUTROPHILS % (MAN) 85 % (42-78); TOTAL CELLS COUNTED 100
[2019-06-16 14:39] LABS: ANISOCYTOSIS 3+; HYPOCHROMASIA SLIGHT; PLATELET COMMENT ADEQUATE
--- NOTE | 2019-06-16 16:40 | PDOC CRITICAL CARE PROG REPORT ---
General Date:: 06/16/19 Hospital Day:: 2 Resuscitation Status: Full Code Events in the past 12 to 24 Hours:: Called to see patient by Dr. Sweet for respiratory distress and increasing BiPAP requirements. I saw the patient in the emergency department yesterday, where she was on BiPAP, albeit with ineffective settings. Settings were adjusted at the bedside. The patient was subsequently admitted to room 306. At the time of clinical interview today, the patient is on BiPAP 16/8, FiO2 75%. She is awake and alert and reports that she "feels better" than yesterday. Notation is made of an ABG that was drawn at 8:38 this mornin.41/37/69 on BiPAP 10/8, FiO2 75%. Review of systems relevant to events:: Respiratory: Still on BiPAP. Patient reports that she feels "better" than yesterday. Physical Exam Vital Signs: Temp Pulse Resp BP Pulse Ox 98.4 F 86 20 103/63 93 06/16/19 11:59 06/16/19 11:59 06/16/19 15:32 06/16/19 11:59 06/16/19 15:32 Pulse Oximeter Continuous Start: 06/16/19 13:03 Freq: RTQ4 Status: Active Protocol: Document 06/16/19 15:32 LDA (Rec: 06/16/19 15:34 LDA [id number]) Pulse Oximetry Assessment Oxygen Saturation (92-100) 93 Oxygen Delivery Method CPAP Fraction of Inspired Oxygen (FIO2) 65 Equipment Usage Initial Set Up Continuous Pulse Oximeter 24 Hour Charge Charge Now Continuous SpO2 Machine # [id number] Intake & Output 06/15/19 06/16/19 06/17/19 06:59 06:59 06:59 Intake Total 3013 2540 Output Total 200 700 Balance 2813 1840 Weight 108.499 kg 110.5 kg 110.5 kg Weight/Height Weight 110.5 kg Height 1.55 m General appearance: PRESENT: no acute distress, cooperative, obese, other - On BiPAP Respiratory exam: PRESENT: crackles, decreased breath sounds, rales, symmetrical Laboratory/Radiographs Laboratory Results: 06/16/19 13:27 06/16/19 13:27 06/15/19 06/16/19 06/16/19 20:55 05:55 05:55 WBC 5.7 RBC 3.29 L Hgb 8.1 L Hct 25.0 L MCV 76 L MCH 24.5 L MCHC 32.2 RDW 28.7 H Plt Count 240 Seg Neutrophils % 82.2 H Carbonic Acid HCO3/H2CO3 Ratio ABG pH ABG pCO2 ABG pO2 ABG HCO3 ABG O2 Saturation ABG Base Excess FiO2 Sodium 141.9 Potassium 3.9 Chloride 112 H Carbon Dioxide 23 Anion Gap 7 BUN 12 Creatinine 0.48 L Est GFR ( Amer) > 60 Glucose 56 L Calcium 7.8 L Total Bilirubin AST Alkaline Phosphatase Total Protein Albumin Urine Color YELLOW Urine Appearance CLEAR Urine pH 5.0 Ur Specific [place] 1.040 Urine Protein 30 H Urine Glucose (UA) NEGATIVE Urine Ketones 20 H Urine Blood MODERATE H Urine RBC (Auto) >182 06/16/19 06/16/19 06/16/19 08:38 13:27 13:27 WBC 7.2 RBC 3.42 L Hgb 8.4 L Hct 26.2 L MCV 76 L MCH 24.5 L MCHC 32.1 RDW 27.9 H Plt Count 249 Seg Neutrophils % Not Reportable Carbonic Acid 1.10 HCO3/H2CO3 Ratio 20:1 ABG pH 7.41 ABG pCO2 36.7 ABG pO2 69.4 L ABG HCO3 22.7 ABG O2 Saturation 94.2 ABG Base Excess -1.6 FiO2 75% Sodium 143.2 Potassium 3.6 Chloride 110 H Carbon Dioxide 26 Anion Gap 7 BUN 12 Creatinine 0.52 Est GFR ( Amer) > 60 Glucose 84 Calcium 7.9 L Total Bilirubin 0.3 AST 53 H Alkaline Phosphatase 183 H Total Protein 6.3 Albumin 2.7 L Urine Color Urine Appearance Urine pH Ur Specific [place] Urine Protein Urine Glucose (UA) Urine Ketones Urine Blood Urine RBC (Auto) 06/14/19 12:03 Troponin I 0.013 NT-Pro-B Natriuret Pep 228 H Impressions: Chest X-Ray 06/14/19 00:00 IMPRESSION: Diffuse bilateral airspace disease right greater than left worrisome for pneumonia. Asymmetric pulmonary edema could mimic this appearance Chest/Abdomen CTA 06/15/19 00:00 IMPRESSION: 1. Multifocal consolidation and ground-glass opacities, greatest within the bilateral lower lobes suggestive of multifocal pneumonia. No significant effusion. 2. No pulmonary embolus. Assessment and Plan - Diagnosis (1) Acute hypoxemic respiratory failure Is this a current diagnosis for this admission?: Yes Plan: Radiographically, this is compatible with ARDS of unknown etiology. Clinically, this is suspicious for a viral or post-viral pneumonitis. I understand the concern regarding this patient's hypoxemic respiratory failure; however, there is no sign of clinical deterioration in the interim. In fact, the ABG results suggest that very little has changed in the past 24 hours. At the bedside, the BiPAP settings were able to be changed to more appropriate CPAP settings. The increase in FiO2 from 60 to 75% has a commensurate change in PaO2. Granted, the patient has not made significant improvement, but I agree with the patient that she has not deteriorated in the interim. She is mentating well and remains hemodynamically stable, albeit requiring CPAP at this time. Notably, she does not appear to need ventilatory assistance. She has an elevated A-a gradient of unknown etiology. High flow nasal cannula may be attempted, if the patient wishes to remove her CPAP/BiPAP mask. She is noted to be on Rocephin/azithromycin, presumably for empiric coverage of a community-acquired pneumonia. I will defer to Dr. Pérez regarding further evaluation of her elevated A-a gradient. (2) Elevated brain natriuretic peptide (BNP) level Is this a current diagnosis for this admission?: Yes Plan: Trial dose of furosemide should be considered. (3) Nonproductive cough Is this a current diagnosis for this admission?: Yes (4) Atypical chest pain Is this a current diagnosis for this admission?: Yes (5) Abnormal chest xray Is this a current diagnosis for this admission?: Yes Plan Summary: Case discussed with Dr. Sweet Critical Time Critical Time (minutes): 0 Level of Care: IMCU -: 1. The care of a critical patient is a dynamic process. This note is a dairy supplies sales representative synopsis but static in nature. The timeframe for treatments given in order is not necessarily the actual time these treatments may have been done. 2. This patient requires critical care secondary to ongoing requirements for therapy not offered or safe outside the critical care environment. Transfer to a lower level of care will result in altered life or limb morbidity and mortality. 3. Multidisciplinary rounds completed. 4. ABCDE bundle addressed.
[2019-06-16 22:47] LABS: ARTERIAL BLOOD BASE EXCESS -1.6 mmol/L; ARTERIAL BLOOD FIO2 80%; ARTERIAL BLOOD H2CO3 1.07 mmol/L (1.05-1.35); ARTERIAL BLOOD HCO3 22.6 mmol/L (20-24); ARTERIAL BLOOD O2 SATURATION 96.7 % (94-98); ARTERIAL BLOOD PCO2 35.7 mmHg (35-45); ARTERIAL BLOOD PH 7.42 (7.35-7.45); ARTERIAL BLOOD TOTAL CO2 23.7 mmol/L (21-25)
[2019-06-17] MEDS: LORAZEPAM INJ 2 MG/1 ML VIAL IV PRN ×2 (02:00→15:28)
[2019-06-17 06:23] LABS: ARTERIAL BLOOD BASE EXCESS -4.7 mmol/L; ARTERIAL BLOOD H2CO3 0.88 mmol/L (1.05-1.35); ARTERIAL BLOOD HCO3 19.1 mmol/L (20-24); ARTERIAL BLOOD O2 SATURATION 93.6 % (94-98); ARTERIAL BLOOD PCO2 29.2 mmHg (35-45); ARTERIAL BLOOD PH 7.43 (7.35-7.45); ARTERIAL BLOOD PO2 64.7 mmHg (80-100)
[2019-06-17 06:45] LABS: ARTERIAL BLOOD FIO2 80%
[2019-06-17 07:18] LABS: ABSOLUTE RETICS # 0.051 10^6/uL (0.028-0.122); RETICULOCYTE COUNT (AUTO) 1.52 % (0.66-2.85)
[2019-06-17 07:22] LABS: IRON(TIBC) 57.6 ug/dL (37-170)
--- NOTE | 2019-06-17 09:59 | RADIOLOGY REPORT (SQ) ---
EXAM DESCRIPTION: CHEST SINGLE VIEW COMPLETED DATE/TIME: 06/17/2019 9:36 am REASON FOR STUDY: shortness of breathe COMPARISON: 06/14/2019. NUMBER OF VIEWS: One view. TECHNIQUE: Single frontal radiographic image of the chest acquired. LIMITATIONS: None. FINDINGS: LUNGS AND PLEURA: Bilateral airspace disease with relative sparing of the left upper lobe not significantly changed. No cavitation. No large effusions. MEDIASTINUM AND HEART: Stable heart size and mediastinal structures. BONY STRUCTURES: No acute findings. HARDWARE: None. OTHER: No other significant finding. IMPRESSION: Bilateral pneumonia. No significant change. TECHNICAL DOCUMENTATION: JOB ID: [id number] Reading location - IP/workstation name: [email or web address]
[2019-06-17] MEDS: CEFEPIME HCL 2 GM in DEXTROSE 5%-WATER 50 ML IV SCH ×2 (10:44→22:05)
--- NOTE | 2019-06-17 11:12 | PDOC PROGRESS REPORT ---
Subjective Progress Note for:: 06/17/19 Subjective:: Patient continues to be hypoxemic. In fact she is currently on 85% FiO2 on BiPAP. ABG done this morning noted. I also obtained a chest x-ray which continues to show bilateral pneumonia with no changes. Patient however remains profoundly hypoxemic and unable to decrease the oxygen requirement. Reason For Visit: ACUTE HYPOXEMIC RESPIRATORY FAILURE, COMMUNITY Physical Exam Vital Signs: Temp Pulse Resp BP Pulse Ox 98.6 F 79 25 H 112/47 L 90 L 06/17/19 04:18 06/17/19 08:00 06/17/19 10:50 06/17/19 04:18 06/17/19 10:50 Pulse Oximeter Continuous Start: 06/16/19 13:03 Freq: RTQ4 Status: Active Protocol: Document 06/17/19 10:50 LDA (Rec: 06/17/19 10:56 LDA [email or web address]) Pulse Oximetry Assessment Oxygen Saturation (92-100) 90 Oxygen Delivery Method CPAP Fraction of Inspired Oxygen (FIO2) 85 Equipment Usage Equipment in Use Continuous SpO2 Machine # [id number] Intake & Output 06/16/19 06/17/19 06/18/19 06:59 06:59 06:59 Intake Total 2540 725 Output Total 700 340 Balance 1840 385 Weight 110.5 kg 110.3 kg General appearance: PRESENT: no acute distress, morbidly obese, well-developed Neck exam: ABSENT: JVD, tenderness Respiratory exam: PRESENT: decreased breath sounds, rhonchi. ABSENT: accessory muscle use, wheezes Cardiovascular exam: PRESENT: RRR, +S1, +S2 GI/Abdominal exam: PRESENT: normal bowel sounds, soft. ABSENT: tenderness Rectal exam: PRESENT: deferred Extremities exam: ABSENT: calf tenderness Musculoskeletal exam: ABSENT: ambulatory Neurological exam: PRESENT: alert, awake Skin exam: ABSENT: abrasion, cyanosis Results Laboratory Results: 06/16/19 13:27 06/16/19 13:27 06/16/19 06/16/19 06/16/19 13:27 13:27 22:15 WBC 7.2 RBC 3.42 L Hgb 8.4 L Hct 26.2 L MCV 76 L MCH 24.5 L MCHC 32.1 RDW 27.9 H Plt Count 249 Seg Neutrophils % Not Reportable Retic Count (auto) Carbonic Acid 1.07 HCO3/H2CO3 Ratio 21:1 ABG pH 7.42 ABG pCO2 35.7 ABG pO2 86.0 ABG HCO3 22.6 ABG O2 Saturation 96.7 ABG Base Excess -1.6 FiO2 80% Sodium 143.2 Potassium 3.6 Chloride 110 H Carbon Dioxide 26 Anion Gap 7 BUN 12 Creatinine 0.52 Est GFR ( Amer) > 60 Glucose 84 Calcium 7.9 L Iron TIBC % Saturation Ferritin Total Bilirubin 0.3 AST 53 H Alkaline Phosphatase 183 H Total Protein 6.3 Albumin 2.7 L Vitamin B12 Folate 06/17/19 06/17/19 06/17/19 06:00 06:45 06:45 WBC RBC Hgb Hct MCV MCH MCHC RDW Plt Count Seg Neutrophils % Retic Count (auto) 1.52 Carbonic Acid 0.88 L HCO3/H2CO3 Ratio 21:1 ABG pH 7.43 ABG pCO2 29.2 L ABG pO2 64.7 L ABG HCO3 19.1 L ABG O2 Saturation 93.6 L ABG Base Excess -4.7 FiO2 80% Sodium Potassium Chloride Carbon Dioxide Anion Gap BUN Creatinine Est GFR ( Amer) Glucose Calcium Iron 57.6 TIBC 265 % Saturation 22 Ferritin 757.00 H Total Bilirubin AST Alkaline Phosphatase Total Protein Albumin Vitamin B12 834.0 Folate 12.90 06/14/19 12:03 Troponin I 0.013 NT-Pro-B Natriuret Pep 228 H Impressions: Chest/Abdomen CTA 06/15/19 00:00 IMPRESSION: 1. Multifocal consolidation and ground-glass opacities, greatest within the bilateral lower lobes suggestive of multifocal pneumonia. No significant effusion. 2. No pulmonary embolus. Chest X-Ray 06/17/19 09:04 IMPRESSION: Bilateral pneumonia. No significant change. Assessment and Plan - Diagnosis (1) Acute hypoxemic respiratory failure Is this a current diagnosis for this admission?: Yes Plan: Continue with BiPAP support. Ornamental Bronze Worker and undergraduate advisor have been consulted. They are very well aware of this patient. I have also decided to give a dose of steroids as at this point nothing seems to be changing. She does not appear to be overtly septic clinically however she remains hypoxemic and now appears to be getting more acidotic. (2) Bilateral pneumonia Qualifiers: Pneumonia type: due to unspecified organism Lung location: unspecified part of lung Qualified Code(s): J18.9 - Pneumonia, unspecified organism Is this a current diagnosis for this admission?: Yes Plan: CTA shows multifocal consolidation and groundglass opacities greatest within the bilateral lower lobes suggestive of multifocal pneumonia. No significant effusions. Antibiotics was changed to cefepime I would change atypical coverage to doxycycline although frankly unsure what we are covering. (3) Methadone use Is this a current diagnosis for this admission?: Yes (4) Anemia Qualifiers: Anemia type: unspecified type Qualified Code(s): D64.9 - Anemia, unspecifie d Is this a current diagnosis for this admission?: Yes Plan: We will follow-up on iron studies - Plan Summary Summary: Lactic acid level is 1.7, and BNP is 228, troponin is negative, and EKG shows a normal sinus rhythm with no acute changes. Transfer to ICU suggested for better management - Time Time Spent with patient: 35 or more minutes Medications reviewed and adjusted accordingly: Yes
[2019-06-17 11:52] LABS: HEMATOCRIT 24.6 % (36.0-47.0); HEMOGLOBIN 8.2 g/dL (12.0-15.5); MEAN CORPUSCULAR HGB CONC 33.6 g/dL (32.0-36.0); MEAN CORPUSCULAR VOLUME 74 fl (80-97); PLATELET COUNT 231 10^3/uL (150-450); RED CELL DISTRIBUTION WIDTH 26.7 % (11.5-14.0); WHITE BLOOD COUNT 9.9 10^3/uL (4.0-10.5)
[2019-06-17] MEDS ORDERED: METHYLPREDNISOLONE INJ 125 MG/2 ML SDV IV ONE (12:00)
[2019-06-17 12:10] LABS: ABSOLUTE LYMPHOCYTES# (MANUAL) 0.8 10^3/uL (0.5-4.7); ABSOLUTE MONOCYTES # (MANUAL) 0.4 10^3/uL (0.1-1.4); BASOPHILS % (MANUAL) 0 % (0-2); EOSINOPHILS % (MANUAL) 0 % (0-6); LYMPHOCYTES % (MANUAL) 8 % (13-45); MONOCYTES % (MANUAL) 4 % (3-13); SEGMENTED NEUTROPHILS % (MAN) 88 % (42-78); TOTAL CELLS COUNTED 100
[2019-06-17 12:11] LABS: ANISOCYTOSIS 3+; HYPOCHROMASIA 1+; OVALOCYTES 1+; PLATELET COMMENT ADEQUATE; POLYCHROMASIA SLIGHT
[2019-06-17] MEDS: ENOXAPARIN SODIUM INJ 40 MG/0.4 ML DISP.SYRIN SUBCUT SCH (12:47)
[2019-06-17] MEDS: DOCUSATE SODIUM 100 MG CAPSULE PO SCH (12:51)
[2019-06-17] MEDS: GUAIFENESIN 600 MG TABLET.SA PO SCH ×2 (12:57→21:19)
[2019-06-17] MEDS: METHADONE HCL 10 MG TABLET PO SCH (12:57)
[2019-06-17] MEDS: FAMOTIDINE 20 MG TABLET PO SCH ×2 (12:58→21:19)
[2019-06-17 13:00] LABS: ANION GAP 7 (5-19); BLOOD UREA NITROGEN 10 mg/dL (7-20); CARBON DIOXIDE 28 mmol/L (22-30); CHLORIDE 109 mmol/L (98-107); GLUCOSE 97 mg/dL (75-110); POTASSIUM 3.3 mmol/L (3.6-5.0)
--- NOTE | 2019-06-17 13:27 | PDOC CRITICAL CARE PROG REPORT ---
General Date:: 06/17/19 Hospital Day:: 3 Resuscitation Status: Full Code Events in the past 12 to 24 Hours:: Patient continues to be CPAP dependent. She is currently on CPAP 10, FiO2 85%. She does not tolerate removal of the CPAP mask and becomes quite anxious and dyspneic. While she is alert, she does seem much more uncomfortable and a bit more disoriented than yesterday. Review of systems relevant to events:: Respiratory: Still on CPAP, hypoxic. Neurologic: Altered mental status/delirium. Physical Exam Vital Signs: Temp Pulse Resp BP Pulse Ox 98.6 F 79 25 H 112/47 L 90 L 06/17/19 04:18 06/17/19 08:00 06/17/19 10:50 06/17/19 04:18 06/17/19 10:50 Pulse Oximeter Continuous Start: 06/16/19 13:03 Freq: RTQ4 Status: Active Protocol: Document 06/17/19 10:50 LDA (Rec: 06/17/19 10:56 LDA [email or web address]) Pulse Oximetry Assessment Oxygen Saturation (92-100) 90 Oxygen Delivery Method CPAP Fraction of Inspired Oxygen (FIO2) 85 Equipment Usage Equipment in Use Continuous SpO2 Machine # n-3 Intake & Output 06/16/19 06/17/19 06/18/19 06:59 06:59 06:59 Intake Total 2540 775 Output Total 700 340 Balance 1840 435 Weight 110.5 kg 110.3 kg Weight/Height Weight 110.3 kg Height 1.55 m General appearance: PRESENT: cooperative, mild distress, other - On CPAP Eye exam: PRESENT: conjunctiva pink, EOMI, PERRLA. ABSENT: scleral icterus Mouth exam: PRESENT: moist, tongue midline Neck exam: ABSENT: carotid bruit, JVD, lymphadenopathy, thyromegaly Respiratory exam: PRESENT: clear to auscultation piter, other - Surprisingly benign respiratory exam. ABSENT: rales, rhonchi, wheezes Cardiovascular exam: PRESENT: RRR. ABSENT: diastolic murmur, rubs, systolic murmur GI/Abdominal exam: PRESENT: normal bowel sounds, soft. ABSENT: distended, guarding, mass, organolmegaly, rebound, tenderness Neurological exam: PRESENT: alert, awake, oriented to person, oriented to place, oriented to time, oriented to situation, CN II-XII grossly intact. ABSENT: motor sensory deficit Psychiatric exam: PRESENT: agitated, anxious Laboratory/Radiographs Laboratory Results: 06/17/19 06:45 06/17/19 12:25 06/16/19 06/16/19 06/16/19 13:27 13:27 22:15 WBC 7.2 RBC 3.42 L Hgb 8.4 L Hct 26.2 L MCV 76 L MCH 24.5 L MCHC 32.1 RDW 27.9 H Plt Count 249 Seg Neutrophils % Not Reportable Retic Count (auto) Carbonic Acid 1.07 HCO3/H2CO3 Ratio 21:1 ABG pH 7.42 ABG pCO2 35.7 ABG pO2 86.0 ABG HCO3 22.6 ABG O2 Saturation 96.7 ABG Base Excess -1.6 FiO2 80% Sodium 143.2 Potassium 3.6 Chloride 110 H Carbon Dioxide 26 Anion Gap 7 BUN 12 Creatinine 0.52 Est GFR ( Amer) > 60 Glucose 84 Calcium 7.9 L Iron TIBC % Saturation Ferritin Total Bilirubin 0.3 AST 53 H Alkaline Phosphatase 183 H Total Protein 6.3 Albumin 2.7 L Vitamin B12 Folate 06/17/19 06/17/19 06/17/19 06:00 06:45 06:45 WBC RBC Hgb Hct MCV MCH MCHC RDW Plt Count Seg Neutrophils % Retic Count (auto) 1.52 Carbonic Acid 0.88 L HCO3/H2CO3 Ratio 21:1 ABG pH 7.43 ABG pCO2 29.2 L ABG pO2 64.7 L ABG HCO3 19.1 L ABG O2 Saturation 93.6 L ABG Base Excess -4.7 FiO2 80% Sodium Potassium Chloride Carbon Dioxide Anion Gap BUN Creatinine Est GFR ( Amer) Glucose Calcium Iron 57.6 TIBC 265 % Saturation 22 Ferritin 757.00 H Total Bilirubin AST Alkaline Phosphatase Total Protein Albumin Vitamin B12 834.0 Folate 12.90 06/17/19 06/17/19 06:45 12:25 WBC 9.9 RBC 3.30 L Hgb 8.2 L Hct 24.6 L MCV 74 L MCH 25.0 L MCHC 33.6 RDW 26.7 H Plt Count 231 Seg Neutrophils % Not Reportable Retic Count (auto) Carbonic Acid HCO3/H2CO3 Ratio ABG pH ABG pCO2 ABG pO2 ABG HCO3 ABG O2 Saturation ABG Base Excess FiO2 Sodium 144.3 Potassium 3.3 L Chloride 109 H Carbon Dioxide 28 Anion Gap 7 BUN 10 Creatinine 0.51 L Est GFR ( Amer) > 60 Glucose 97 Calcium 8.0 L Iron TIBC % Saturation Ferritin Total Bilirubin AST Alkaline Phosphatase Total Protein Albumin Vitamin B12 Folate 06/14/19 12:03 Troponin I 0.013 NT-Pro-B Natriuret Pep 228 H Impressions: Chest/Abdomen CTA 06/15/19 00:00 IMPRESSION: 1. Multifocal consolidation and ground-glass opacities, greatest within the bilateral lower lobes suggestive of multifocal pneumonia. No significant effusion. 2. No pulmonary embolus. Chest X-Ray 06/17/19 09:04 IMPRESSION: Bilateral pneumonia. No significant change. Assessment and Plan - Diagnosis (1) Acute hypoxemic respiratory failure Is this a current diagnosis for this admission?: Yes Plan: I have communicated my intention to transfer this patient to the ICU to Dr. Sweet. Continue CPAP for now. (2) Elevated brain natriuretic peptide (BNP) level Is this a current diagnosis for this admission?: Yes Plan: Repeat BNP (3) Nonproductive cough Is this a current diagnosis for this admission?: Yes (4) Atypical chest pain Is this a current diagnosis for this admission?: Yes (5) Abnormal chest xray Is this a current diagnosis for this admission?: Yes (6) Microcytic anemia Is this a current diagnosis for this admission?: Yes Plan: Monitor hemoglobin (7) Hypokalemia Is this a current diagnosis for this admission?: Yes Critical Time Critical Time (minutes): 0 Level of Care: IMCU -: 1. The care of a critical patient is a dynamic process. This note is a medical customer service representative synopsis but static in nature. The timeframe for treatments given in order is not necessarily the actual time these treatments may have been done. 2. This patient requires critical care secondary to ongoing requirements for therapy not offered or safe outside the critical care environment. Transfer to a lower level of care will result in altered life or limb morbidity and mortality. 3. Multidisciplinary rounds completed. 4. ABCDE bundle addressed.
[2019-06-17] MEDS: POTASSI CL 20 MEQ/50 ML RIDER 20 MEQ/50 ML RTUPB IV SCH ×2 (15:29→20:21)
--- NOTE | 2019-06-17 17:15 | Progress Note ---
Provider Note Provider Note: Patient has transferred to ICU. She remains on CPAP 10, FiO2 90%. SPO2 89 to 90%. The patient has ready received a PRN dose of Ativan is notably lethargic. She is arousable. She does not appear to be in acute distress despite a borderline SPO2. Dynamically stable. Prior to transfer, it is noted that the patient did receive 1 single dose of Solu-Medrol 125 mg IV. He was also on Rocephin and doxycycline. Increase CPAP to 12. ABG in 1 hour. Stop doxycycline. Start azithromycin. Hold methadone. Hold Zofran PRN. Check proBNP. Check ESR. Furosemide 40 mg IV single dose.
[2019-06-17] MEDS ORDERED: FUROSEMIDE INJ/PF 40 MG/4 ML SDV IV ONE (17:16)
[2019-06-17] MEDS ORDERED: AZITHROMYCIN INJ 500 MG VIAL IV ONE ×2 (18:00→18:50)
[2019-06-17] MEDS: DEXMEDETOMIDINE IN 0.9 % NACL 400 MCG/100 ML RTUPB IV PRN ×3 (18:02→22:51)
[2019-06-17] MEDS ORDERED: POTASSI CL 20 MEQ/50 ML RIDER 20 MEQ/50 ML RTUPB IV ONE (20:17)
[2019-06-17] MEDS ORDERED: DOXYCYCLINE HYCLATE 100 MG in DEXTROSE 5%-WATER 250 ML IV SCH (22:00)
[2019-06-17] MEDS: METHYLPREDNISOLONE INJ 125 MG/2 ML SDV IV SCH (22:05)
[2019-06-18] MEDS: DEXMEDETOMIDINE IN 0.9 % NACL 400 MCG/100 ML RTUPB IV PRN (02:22)
[2019-06-18 04:25] LABS: HEMATOCRIT 27.4 % (36.0-47.0); HEMOGLOBIN 8.8 g/dL (12.0-15.5); MEAN CORPUSCULAR HEMOGLOBIN 24.3 pg (27.0-33.4); MEAN CORPUSCULAR HGB CONC 32.2 g/dL (32.0-36.0); MEAN CORPUSCULAR VOLUME 76 fl (80-97); PLATELET COUNT 150 10^3/uL (150-450); RED BLOOD COUNT 3.63 10^6/uL (3.72-5.28); RED CELL DISTRIBUTION WIDTH 27.9 % (11.5-14.0); WHITE BLOOD COUNT 11.1 10^3/uL (4.0-10.5)
[2019-06-18 04:45] LABS: ABSOLUTE LYMPHOCYTES# (MANUAL) 0.6 10^3/uL (0.5-4.7); ABSOLUTE MONOCYTES # (MANUAL) 0.4 10^3/uL (0.1-1.4); ANISOCYTOSIS 4+; BASOPHILS % (MANUAL) 0 % (0-2); EOSINOPHILS % (MANUAL) 0 % (0-6); HYPOCHROMASIA 2+; LYMPHOCYTES % (MANUAL) 5 % (13-45); MONOCYTES % (MANUAL) 4 % (3-13); PLATELET COMMENT ADEQUATE; SEGMENTED NEUTROPHILS % (MAN) 91 % (42-78); TOTAL CELLS COUNTED 100
[2019-06-18 04:46] LABS: ANION GAP 10 (5-19); BLOOD UREA NITROGEN 21 mg/dL (7-20); CALCIUM 8.4 mg/dL (8.4-10.2); CARBON DIOXIDE 25 mmol/L (22-30); CHLORIDE 109 mmol/L (98-107); GLUCOSE 234 mg/dL (75-110); POTASSIUM 3.4 mmol/L (3.6-5.0)
[2019-06-18] MEDS: METHYLPREDNISOLONE INJ 125 MG/2 ML SDV IV SCH ×3 (05:10→22:54)
[2019-06-18] MEDS: LORAZEPAM INJ 2 MG/1 ML VIAL IV PRN ×2 (05:38→12:28)
--- NOTE | 2019-06-18 08:43 | RADIOLOGY REPORT (SQ) ---
EXAM DESCRIPTION: CHEST SINGLE VIEW COMPLETED DATE/TIME: 06/18/2019 7:29 am REASON FOR STUDY: f/u bilateral infiltrates COMPARISON: AP view of the chest from 06/17/2019. EXAM PARAMETERS: NUMBER OF VIEWS: One view. TECHNIQUE: An AP view of the chest was obtained. RADIATION DOSE: NA LIMITATIONS: None. FINDINGS: LUNGS AND PLEURA: Unchanged diffuse bilateral and asymmetric parenchymal opacities with ai r bronchograms present in the inferior left hemithorax. There is no pneumothorax. MEDIASTINUM AND HILAR STRUCTURES: Stable mediastinal and hilar contours. HEART AND VASCULAR STRUCTURES: Stable cardiac silhouette. BONES: No acute findings. HARDWARE: None in the chest. OTHER: Low inspiratory lung volumes. IMPRESSION: Unchanged radiographic appearance of the chest. TECHNICAL DOCUMENTATION: JOB ID: [id number] 2010 [employer]- All Rights Reserved Reading location - IP/workstation name: [email or web address]
--- NOTE | 2019-06-18 09:26 | XCELERA REPORT ---
[address] [address] Transthoracic Echocardiogram Report Name: ULISES HERNANDEZ Age: 48 yrs Gender: Female : 1970 Patient Status: Inpatient Patient Location: [address] [place], [place] [address] Study Date: 06/15/2019 01:04 PM History: Hypotension Respiratory failure Height: 61 in Weight: 239 lb BSA: 2.0 m2 Procedure: A complete two-dimensional transthoracic echocardiogram was performed (2D, M-mode, spectral and color flow Doppler). The study was technically difficult with many images being suboptimal in quality. Reason For Study: Hypotension, Respiratory Failure History: CHF. Ordering Physician: SHIRA FLYNN Performed By: Yolanda Macedo Interpretation Summary Left ventricular systolic function is normal. The Ejection Fraction estimate is 55-60% The right ventricle is normal in size and function. There is no aortic valve stenosis There is a trace to mild amount of tricuspid regurgitation There is no pericardial effusion. MMode/2D Measurements & Calculations RVDd: 3.7 cm LVIDd: 4.2 cm FS: 39.2 % Ao root diam: 2.9 cm IVSd: 1.0 cm LVIDs: 2.6 cm EDV(Teich): 79.9 ml Ao root area: 6.5 cm2 LVPWd: 1.00 cm ESV(Teich): 23.9 ml LA dimension: 3.3 cm EF(Teich): 70.0 % Doppler Measurements & Calculations MV E max jenny: MV P1/2t max jenny: Ao V2 max: LV V1 max P.1 cm/sec 106.6 cm/sec 149.9 cm/sec 6.1 mmHg MV A max jenny: MV P1/2t: 65.3 msec Ao max P.0 mmHgLV V1 max: 73.5 cm/sec MVA(P1/2t): 3.4 cm2 123.4 cm/sec MV E/A: 1.4 MV dec slope: 478.4 cm/sec2 MV dec time: 0.21 sec PA V2 max: TR max jenny: MV P1/2t-pr_phl: 57.3 cm/sec 256.5 cm/sec 65.3 msec PA max P.3 mmHgTR max P.3 mmHg Left Ventricle The left ventricle is grossly normal size. There is mild concentric left ventricular hypertrophy. Left ventricular systolic function is normal. The Ejection Fraction estimate is 55-60%. Doppler measurements suggest pseudonormalized left ventricular relaxation, which is associated with grade II/IV or mild to moderate diastolic dysfunction. No regional wall motion abnormalities noted. Right Ventricle The right ventricle is normal in size and function. Atria The right atrium is normal in size. The left atrium is mildly dilated. Mitral Valve The mitral valve is grossly normal. There is a trace amount of mitral regurgitation. Aortic Valve The aortic valve is not well visualized secondary to technical limitations. There is no aortic valve stenosis. No aortic regurgitation is present. Tricuspid Valve The tricuspid valve is normal in structure and function. There is a trace to mild amount of tricuspid regurgitation. Tricuspid regurgitation jet envelope not well defined to measure RV systolic pressure accurately. Pulmonic Valve The pulmonic valve is not well visualized. Effusions There is no pericardial effusion. : SHIRA FLYNN Anil
[2019-06-18] MEDS ORDERED: AZITHROMYCIN INJ 500 MG VIAL IV SCH (10:00)
[2019-06-18] MEDS ORDERED: FUROSEMIDE INJ/PF 40 MG/4 ML SDV IV ONE (11:01)
[2019-06-18] MEDS: DOCUSATE SODIUM 100 MG CAPSULE PO SCH (11:17)
[2019-06-18] MEDS: GUAIFENESIN 600 MG TABLET.SA PO SCH (11:18)
[2019-06-18] MEDS: CEFEPIME HCL 2 GM in DEXTROSE 5%-WATER 50 ML IV SCH ×2 (11:27→22:51)
[2019-06-18] MEDS: AZITHROMYCIN 500 MG in DEXTROSE 5%-WATER 250 ML IV SCH (11:27)
[2019-06-18] MEDS: ENOXAPARIN SODIUM INJ 40 MG/0.4 ML DISP.SYRIN SUBCUT SCH (11:28)
[2019-06-18] MEDS: FAMOTIDINE INJ/PF 20 MG/2 ML SDV IV SCH ×2 (11:28→22:54)
--- NOTE | 2019-06-18 11:53 | PDOC CONSULTATION ---
Consultation Consult Date: 06/16/19 Attending physician:: SHIRA FLYNN Provider Consulted: CHAPINCITO JACOBO Consult reason:: ARDS/Hypoxia History of Present Illness Admission Date/PCP: 06/14/19 13:55 JS ANDERSON PA-C History of Present Illness: ULISES HERNANDEZ is a 48 year old female 3 days of progressive shortness of breath presented to the emergency room with cough dizziness presented by EMS were already initiated BiPAP therapy therapy when she was found to have a SaO2 in the 80s she was subsequently admitted to the [facility]. She states she is cough but nonproductive no fevers but admits to chills no angina-like chest pain sleeps 1-2 pillows no PND frequent nocturnal cough intermittent episodes of edema. No pets no recent travel Past Medical History Cardiac Medical History: Reports: Hypertension Neurological Medical History: Denies: Multiple Sclerosis Endocrine Medical History: Reports: Obesity Malignancy Medical History: Reports: None GI Medical History: Denies: Cirrhosis, Crohn's Disease, Ulcerative Colitis Skin Medical History: Denies: Psoriasis Psychiatric Medical History: Reports: Depression Traumatic Medical History: Reports: Traumatic Brain Injury Hematology: Denies: Sickle Cell Disease Infectious Medical History: Denies: Methicillin-Resistant Staph Aureus Past Surgical History Past Surgical History: Reports: None Social History Information Source: [facility] Records Lives with: Family Smoking Status: Never Smoker Frequency of Alcohol Use: None Hx Recreational Drug Use: No Drugs: Methadone Hx Prescription Drug Abuse: Yes Do you have pets?: No Have you had any respiratory illnesses as a child?: No Have you been exposed to any sick contacts recently?: No Have you had any recent respiratory illnesses?: No Have you travelled outside of [place] in the past 12 months?: No - Advance Directive Resuscitation Status: Full Code Family History Family History: None Parental Family History Reviewed: No Children Family History Reviewed: No Sibling(s) Family History Reviewed.: No Medication/Allergy Home Medications: Methadone HCl [Dolophine 10 mg Tablet] 89 mg PO DAILY 06/14/19 Allergies/Adverse Reactions: No Known Allergies Allergy (Verified 04/28/12 17:16) Review of Systems ROS unobtainable: Due to mental status Physical Exam Vital Signs: Temp Pulse Resp BP Pulse Ox 97.3 F 93 28 H 113/58 L 92 06/16/19 07:45 06/16/19 08:00 06/16/19 12:06 06/16/19 07:45 06/16/19 12:06 Intake & Output 06/15/19 06/16/19 06/17/19 06:59 06:59 06:59 Intake Total 3013 2540 Output Total 200 700 Balance 2813 1840 Weight 108.499 kg 110.5 kg General appearance: PRESENT: cooperative, disheveled, mild distress, morbidly obese, well-developed, well-nourished Head exam: PRESENT: atraumatic, normocephalic Eye exam: PRESENT: conjunctiva pale, EOMI. ABSENT: nystagmus, periorbital swelling, scleral icterus Mouth exam: PRESENT: dry mucosa, neck supple, tongue midline Neck exam: ABSENT: carotid bruit, full ROM, JVD, lymphadenopathy, meningismus, tenderness, thyromegaly, tracheal deviation, tracheostomy, other Respiratory exam: PRESENT: decreased breath sounds, prolonged expiratory phas, rales, rhonchi, symmetrical, tachypnea, wheezes. ABSENT: retraction, stridor, unlabored Cardiovascular exam: PRESENT: RRR, +S1, +S2, tachycardia Pulses: PRESENT: normal radial pulses GI/Abdominal exam: PRESENT: soft. ABSENT: guarding, mass, rebound, tenderness Extremities exam: PRESENT: full ROM. ABSENT: calf tenderness, clubbing, joint swelling, pedal edema, tenderness Musculoskeletal exam: PRESENT: full ROM. ABSENT: ambulatory, deformity, dislocation Neurological exam: PRESENT: altered, awake Psychiatric exam: PRESENT: anxious Skin exam: PRESENT: dry, warm Results Laboratory Results: 06/16/19 05:55 06/16/19 05:55 06/15/19 06/16/19 06/16/19 20:55 05:55 05:55 WBC 5.7 RBC 3.29 L Hgb 8.1 L Hct 25.0 L MCV 76 L MCH 24.5 L MCHC 32.2 RDW 28.7 H Plt Count 240 Seg Neutrophils % 82.2 H Carbonic Acid HCO3/H2CO3 Ratio ABG pH ABG pCO2 ABG pO2 ABG HCO3 ABG O2 Saturation ABG Base Excess FiO2 Sodium 141.9 Potassium 3.9 Chloride 112 H Carbon Dioxide 23 Anion Gap 7 BUN 12 Creatinine 0.48 L Est GFR ( Amer) > 60 Glucose 56 L Calcium 7.8 L Urine Color YELLOW Urine Appearance CLEAR Urine pH 5.0 Ur Specific [place] 1.040 Urine Protein 30 H Urine Glucose (UA) NEGATIVE Urine Ketones 20 H Urine Blood MODERATE H Urine RBC (Auto) >182 06/16/19 08:38 WBC RBC Hgb Hct MCV MCH MCHC RDW Plt Count Seg Neutrophils % Carbonic Acid 1.10 HCO3/H2CO3 Ratio 20:1 ABG pH 7.41 ABG pCO2 36.7 ABG pO2 69.4 L ABG HCO3 22.7 ABG O2 Saturation 94.2 ABG Base Excess -1.6 FiO2 75% Sodium Potassium Chloride Carbon Dioxide Anion Gap BUN Creatinine Est GFR ( Amer) Glucose Calcium Urine Color Urine Appearance Urine pH Ur Specific [place] Urine Protein Urine Glucose (UA) Urine Ketones Urine Blood Urine RBC (Auto) 06/14/19 12:03 Troponin I 0.013 NT-Pro-B Natriuret Pep 228 H Impressions: Chest X-Ray 06/14/19 00:00 IMPRESSION: Diffuse bilateral airspace disease right greater than left worriso me for pneumonia. Asymmetric pulmonary edema could mimic this appearance Chest/Abdomen CTA 06/15/19 00:00 IMPRESSION: 1. Multifocal consolidation and ground-glass opacities, greatest within the bilateral lower lobes suggestive of multifocal pneumonia. No significant effusion. 2. No pulmonary embolus. Assessment & Plan - Diagnosis (1) Abnormal chest xray Is this a current diagnosis for this admission?: Yes Plan: multi lobe involvement air bronchograms (2) Acute hypoxemic respiratory failure Is this a current diagnosis for this admission?: Yes Plan: PAO2/FIO2 = 92.6666 feel patient good candidate ICU (3) Elevated brain natriuretic peptide (BNP) level Is this a current diagnosis for this admission?: Yes Plan: >28,000 strong component of CHF/vol overload (4) Nonproductive cough Is this a current diagnosis for this admission?: Yes Plan: no cultures thus far - Time Time Spent with patient: 70 Time Spent: 50 to 70 Minutes - Plan Summary Plan Summary: discussed with ICU physician he will continue to evaluate
--- NOTE | 2019-06-18 11:58 | PDOC PROGRESS REPORT ---
Subjective Progress Note for:: 06/17/19 Subjective:: unchanged Reason For Visit: ACUTE HYPOXEMIC RESPIRATORY FAILURE, COMMUNITY Physical Exam Vital Signs: Temp Pulse Resp BP Pulse Ox 98.6 F 79 25 H 112/47 L 90 L 06/17/19 04:18 06/17/19 08:00 06/17/19 10:50 06/17/19 04:18 06/17/19 10:50 Pulse Oximeter Continuous Start: 06/16/19 13:03 Freq: RTQ4 Status: Active Protocol: Document 06/17/19 10:50 LDA (Rec: 06/17/19 10:56 LDA [id number]) Pulse Oximetry Assessment Oxygen Saturation (92-100) 90 Oxygen Delivery Method CPAP Fraction of Inspired Oxygen (FIO2) 85 Equipment Usage Equipment in Use Continuous SpO2 Machine # n-[id number] Intake & Output 06/16/19 06/17/19 06/18/19 06:59 06:59 06:59 Intake Total 2540 725 Output Total 700 340 Balance 1840 385 Weight 110.5 kg 110.3 kg General appearance: PRESENT: disheveled, mild distress, morbidly obese, well-developed Head exam: PRESENT: atraumatic, normocephalic Eye exam: PRESENT: conjunctiva pale, EOMI. ABSENT: nystagmus, periorbital swelling, scleral icterus Mouth exam: PRESENT: dry mucosa, neck supple, tongue midline Neck exam: ABSENT: carotid bruit, full ROM, JVD, lymphadenopathy, meningismus, tenderness, thyromegaly, tracheal deviation, tracheostomy, other Respiratory exam: PRESENT: decreased breath sounds, prolonged expiratory phas, rales, rhonchi, symmetrical, tachypnea, wheezes. ABSENT: retraction, stridor, unlabored Cardiovascular exam: PRESENT: RRR, +S1, +S2, tachycardia Pulses: PRESENT: normal radial pulses GI/Abdominal exam: PRESENT: soft. ABSENT: distended, guarding, mass, rebound, tenderness Extremities exam: PRESENT: full ROM. ABSENT: calf tenderness, clubbing, joint swelling, tenderness Musculoskeletal exam: PRESENT: full ROM. ABSENT: ambulatory, deformity, dislocation Neurological exam: PRESENT: altered Psychiatric exam: PRESENT: anxious Skin exam: PRESENT: dry, warm Results Laboratory Results: 06/17/19 06:45 06/16/19 06/16/19 06/16/19 13:27 13:27 22:15 WBC 7.2 RBC 3.42 L Hgb 8.4 L Hct 26.2 L MCV 76 L MCH 24.5 L MCHC 32.1 RDW 27.9 H Plt Count 249 Seg Neutrophils % Not Reportable Retic Count (auto) Carbonic Acid 1.07 HCO3/H2CO3 Ratio 21:1 ABG pH 7.42 ABG pCO2 35.7 ABG pO2 86.0 ABG HCO3 22.6 ABG O2 Saturation 96.7 ABG Base Excess -1.6 FiO2 80% Sodium 143.2 Potassium 3.6 Chloride 110 H Carbon Dioxide 26 Anion Gap 7 BUN 12 Creatinine 0.52 Est GFR ( Amer) > 60 Glucose 84 Calcium 7.9 L Iron TIBC % Saturation Ferritin Total Bilirubin 0.3 AST 53 H Alkaline Phosphatase 183 H Total Protein 6.3 Albumin 2.7 L Vitamin B12 Folate 06/17/19 06/17/19 06/17/19 06:00 06:45 06:45 WBC RBC Hgb Hct MCV MCH MCHC RDW Plt Count Seg Neutrophils % Retic Count (auto) 1.52 Carbonic Acid 0.88 L HCO3/H2CO3 Ratio 21:1 ABG pH 7.43 ABG pCO2 29.2 L ABG pO2 64.7 L ABG HCO3 19.1 L ABG O2 Saturation 93.6 L ABG Base Excess -4.7 FiO2 80% Sodium Potassium Chloride Carbon Dioxide Anion Gap BUN Creatinine Est GFR ( Amer) Glucose Calcium Iron 57.6 TIBC 265 % Saturation 22 Ferritin 757.00 H Total Bilirubin AST Alkaline Phosphatase Total Protein Albumin Vitamin B12 834.0 Folate 12.90 06/17/19 06:45 WBC 9.9 RBC 3.30 L Hgb 8.2 L Hct 24.6 L MCV 74 L MCH 25.0 L MCHC 33.6 RDW 26.7 H Plt Count 231 Seg Neutrophils % Not Reportable Retic Count (auto) Carbonic Acid HCO3/H2CO3 Ratio ABG pH ABG pCO2 ABG pO2 ABG HCO3 ABG O2 Saturation ABG Base Excess FiO2 Sodium Potassium Chloride Carbon Dioxide Anion Gap BUN Creatinine Est GFR ( Amer) Glucose Calcium Iron TIBC % Saturation Ferritin Total Bilirubin AST Alkaline Phosphatase Total Protein Albumin Vitamin B12 Folate 06/14/19 12:03 Troponin I 0.013 NT-Pro-B Natriuret Pep 228 H Impressions: Chest/Abdomen CTA 06/15/19 00:00 IMPRESSION: 1. Multifocal consolidation and ground-glass opacities, greatest within the bilateral lower lobes suggestive of multifocal pneumonia. No significant effusion. 2. No pulmonary embolus. Chest X-Ray 06/17/19 09:04 IMPRESSION: Bilateral pneumonia. No significant change. Assessment & Plan - Diagnosis (1) Abnormal chest xray Is this a current diagnosis for this admission?: Yes Plan: multi lobe involvement air bronchograms no improvement (2) Acute hypoxemic respiratory failure Is this a current diagnosis for this admission?: Yes Plan: PAO2/FIO2 = 92.6666 feel patient good candidate ICU 06/16 PAO2/FIO2 = 80 06/17 (3) Elevated brain natriuretic peptide (BNP) level Is this a current diagnosis for this admission?: Yes Plan: >64,000 strong component of CHF/vol overload (4) Nonproductive cough Is this a current diagnosis for this admission?: Yes Plan: no cultures thus far - Time Time Spent with patient: 45 Level of Care: IMCU
[2019-06-18] MEDS: PROPOFOL 1,000 MG/100 ML INFUS..BTL IV PRN ×3 (14:00→22:50)
[2019-06-18] MEDS ORDERED: MIDAZOLAM 2 MG/2 ML INJ ONE ×2 (14:01→14:39)
[2019-06-18] MEDS ORDERED: ETOMIDATE INJ/PF 20 MG/10 ML SDV IV ONE (14:02)
[2019-06-18] MEDS ORDERED: PROPOFOL 1,000 MG/100 ML INFUS..BTL IV ONE (14:09)
--- NOTE | 2019-06-18 14:36 | Operative Report ---
Bedside Procedure - History of Present Illness History of Present Illness: This 48-year-old female non-smoker was originally seen in consultation on 06/15/2019 at the request of the ER physician for recommendations on further evaluation and management of dyspnea. The patient reported that she had progressively worsening dyspnea and nonproductive cough over the past week or so prior to presentation, which followed a respiratory tract illness that her roommate (common-law ) experience before the the patient developed symptoms. She had a prodromal phase of fever, headache and myalgia, which had improved, but she continued to get more short of breath. She denied history of lung disease or heart disease. 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 In the emergency department, the patient was placed on BiPAP and subsequently admitted to [facility]; however, she failed to improve over the course of 3 days and was transferred to the ICU. She was started on empiric steroid therapy along with empiric Rocephin/azithromycin with chest x-ray and chest CT showing bilateral airspace disease. Of note, the patient's BNP was mildly elevated in the emergency department and was found to be significantly further elevated upon transfer to the ICU (3340). She was also given a dose of furosemide. On , the nurse reported that the patient had continued to increase her FiO2 requirement to 100% on CPAP 12. With alteration in mental status/obtundation, decision was made to intubate the patient. Previously discussed CODE STATUS with this patient, and the patient stipulated that she wanted to be a full code. Medications: Etomidate 25 Mg IV Single Dose Versed 2 Mg IV Single Dose Succinylcholine 100 Mg IV Single Dose A time out was performed. My hands were washed immediately prior to the procedure. Rapid Sequence Intubation was conducted. Using a GlideScope (Mac 4),a 7.5 endotracheal tube with stylet, the patient was intubated on the 1st attempt. The stylet was removed and cuff balloon was inflated. Appropriate endotracheal tube position was confirmed by direct visualization of vocal cord passage, fogging of the tube, CO2 colometric indicator and symmetric breath sounds. The tube was secured at 23 cm at the lips. Post intubation chest x-ray is pending at this time. Indication for Procedure: acute hypoxemic respiratory failure Date: 06/18/19 Provider: LAUREEN GOMEZ
--- NOTE | 2019-06-18 14:47 | PDOC CRITICAL CARE PROG REPORT ---
General Date:: 06/18/19 ICU Day:: 2 Hospital Day:: 5 Resuscitation Status: Full Code Events in the past 12 to 24 Hours:: The patient transferred to the ICU yesterday evening due to concerns of altered mental status/agitation and increasing FiO2 requirement (requiring 90% on CPAP 10). Patient continues to be CPAP dependent. She is currently on CPAP 10, FiO2 85%. She does not tolerate removal of the CPAP mask and becomes quite anxious and dyspneic. While she is alert, she does seem much more uncomfortable and a bit more disoriented than yesterday. Review of systems relevant to events:: Respiratory: Still on CPAP, hypoxic. Neurologic: Altered mental status/delirium. Physical Exam Vital Signs: Temp Pulse Resp BP Pulse Ox 97.6 F 45 L 24 H 109/71 96 06/18/19 08:00 06/18/19 08:00 06/18/19 08:00 06/18/19 08:00 06/18/19 08:00 Pulse Oximeter Continuous Start: 06/16/19 13:03 Freq: RTQ4 Status: Hold Protocol: Document 06/17/19 10:50 LDA (Rec: 06/17/19 10:56 LDA [email or web address]) Pulse Oximetry Assessment Oxygen Saturation (92-100) 90 Oxygen Delivery Method CPAP Fraction of Inspired Oxygen (FIO2) 85 Equipment Usage Equipment in Use Continuous SpO2 Machine # n-3 Intake & Output 06/17/19 06/18/19 06/19/19 06:59 06:59 06:59 Intake Total 775 682 1 Output Total 340 1880 0 Balance 435 -1198 1 Weight 110.3 kg 109.4 kg Weight/Height Weight 109.4 kg Height 1.55 m Laboratory/Radiographs Laboratory Results: 06/18/19 04:15 06/18/19 04:15 06/17/19 06/17/19 06/17/19 06:45 12:25 17:20 WBC 9.9 RBC 3.30 L Hgb 8.2 L Hct 24.6 L MCV 74 L MCH 25.0 L MCHC 33.6 RDW 26.7 H Plt Count 231 Seg Neutrophils % Not Reportable Sodium 144.3 Potassium 3.3 L Chloride 109 H Carbon Dioxide 28 Anion Gap 7 BUN 10 Creatinine 0.51 L Est GFR ( Amer) > 60 Glucose 97 Calcium 8.0 L Magnesium 2.3 02/10/20 02/10/20 04:15 04:15 WBC 11.1 H RBC 3.63 L Hgb 8.8 L Hct 27.4 L MCV 76 L MCH 24.3 L MCHC 32.2 RDW 27.9 H Plt Count 150 Seg Neutrophils % Not Reportable Sodium 144.1 Potassium 3.4 L Chloride 109 H Carbon Dioxide 25 Anion Gap 10 BUN 21 H Creatinine 0.58 Est GFR ( Amer) > 60 Glucose 234 H Calcium 8.4 Magnesium 2.3 06/15/19 20:55 Clean Catch Midstream Urine Culture - Final Mixed Urogenital Tea 06/14/19 06/17/19 12:03 17:20 Troponin I 0.013 NT-Pro-B Natriuret Pep 228 H 3340 H Impressions: Chest/Abdomen CTA 06/15/19 00:00 IMPRESSION: 1. Multifocal consolidation and ground-glass opacities, greatest within the bilateral lower lobes suggestive of multifocal pneumonia. No significant effusion. 2. No pulmonary embolus. Chest X-Ray 06/18/19 00:00 IMPRESSION: Unchanged radiographic appearance of the chest. Assessment and Plan - Diagnosis (1) Acute hypoxemic respiratory failure Is this a current diagnosis for this admission?: Yes Plan: Concerning for needing endotracheal intubation and mechanical ventilatory support. The patient has previously indicated that she was willing to proceed with intubation in the event that it becomes necessary. (2) Heart failure, diastolic, with acute decompensation Is this a current diagnosis for this admission?: Yes Plan: Furosemide 40 mg IV single dose. Monitor urine output. (3) Elevated brain natriuretic peptide (BNP) level Is this a current diagnosis for this admission?: Yes (4) Nonproductive cough Is this a current diagnosis for this admission?: Yes (5) Atypical chest pain Is this a current diagnosis for this admission?: Yes (6) Abnormal chest xray Is this a current diagnosis for this admission?: Yes (7) Microcytic anemia Is this a current diagnosis for this admission?: Yes (8) Hypokalemia Is this a current diagnosis for this admission?: Yes Critical Time Critical Time (minutes): 45 Level of Care: ICU -: 1. The care of a critical patient is a dynamic process. This note is a public utilities sales representative synopsis but static in nature. The timeframe for treatments given in order is not necessarily the actual time these treatments may have been done. 2. This patient requires critical care secondary to ongoing requirements for therapy not offered or safe outside the critical care environment. Transfer to a lower level of care will result in altered life or limb morbidity and mortality. 3. Multidisciplinary rounds completed. 4. ABCDE bundle addressed.
--- NOTE | 2019-06-18 15:20 | RADIOLOGY REPORT (SQ) ---
EXAM DESCRIPTION: CHEST SINGLE VIEW COMPLETED DATE/TIME: 06/18/2019 2:41 pm REASON FOR STUDY: ET Tube Placement COMPARISON: AP view of the chest from 06/18/2019. EXAM PARAMETERS: NUMBER OF VIEWS: One view. TECHNIQUE: An AP view of the chest was obtained. RADIATION DOSE: NA LIMITATIONS: None. FINDINGS: LUNGS AND PLEURA: Unchanged radiographic appearance of the lungs and pleura. MEDIASTINUM AND HILAR STRUCTURES: Stable mediastinal and hilar contours. HEART AND VASCULAR STRUCTURES: Stable cardiac silhouette. BONES: No acute findings. HARDWARE: The tip of the enteric tube projects 2.4 cm above the miriam. The tip of the enteric tube projects past esophageal junction and within the gastric lumen. OTHER: No other finding. IMPRESSION: Tubes and lines as above. Otherwise unchanged radiographic appearance of the chest. TECHNICAL DOCUMENTATION: JOB ID: [id number] 2010 [employer]- All Rights Reserved Reading location - IP/workstation name: [email or web address]
--- NOTE | 2019-06-18 15:22 | RADIOLOGY REPORT (SQ) ---
EXAM DESCRIPTION: KUB/ABDOMEN (SINGLE VIEW) COMPLETED DATE/TIME: 06/18/2019 2:41 pm REASON FOR STUDY: Check Placement of NG Tube COMPARISON: AP view of the chest from 06/18/2019. NUMBER OF VIEWS: One view. TECHNIQUE: An AP supine view of the abdomen was obtained. LIMITATIONS: None. FINDINGS: BOWEL GAS PATTERN: No dilated loops of bowel. CALCIFICATIONS: 12 mm left renal calculus. SOFT TISSUES: No abnormality. HARDWARE: The tip of the enteric tube projects within the gastric antrum. BONES: No acute findings. OTHER: Cholecystectomy clips in the right upper quadrant and left lower lobe consolidation with air b ronchograms. IMPRESSION: The tip of the enteric tube projects within the gastric antrum. TECHNICAL DOCUMENTATION: JOB ID: [id number] 2010 [employer]- All Rights Reserved Reading location - IP/workstation name: [email or web address]
[2019-06-18 16:00] LABS: ARTERIAL BLOOD BASE EXCESS -1.4 mmol/L; ARTERIAL BLOOD FIO2 100%; ARTERIAL BLOOD H2CO3 1.23 mmol/L (1.05-1.35); ARTERIAL BLOOD HCO3 23.6 mmol/L (20-24); ARTERIAL BLOOD O2 SATURATION 92.7 % (94-98); ARTERIAL BLOOD PCO2 40.9 mmHg (35-45); ARTERIAL BLOOD PH 7.38 (7.35-7.45); ARTERIAL BLOOD PO2 65.9 mmHg (80-100); ARTERIAL BLOOD TOTAL CO2 24.9 mmol/L (21-25)
[2019-06-18] MEDS ORDERED: SUCCINYLCHOLINE CHLORIDE INJ 200 MG/10 ML VIAL ONE (16:37)
[2019-06-18 17:58] LABS: ANION GAP 10 (5-19); CALCIUM 8.3 mg/dL (8.4-10.2); CARBON DIOXIDE 23 mmol/L (22-30); CHLORIDE 110 mmol/L (98-107); GLUCOSE 177 mg/dL (75-110); POTASSIUM 3.7 mmol/L (3.6-5.0)
[2019-06-18 18:13] LABS: BLOOD UREA NITROGEN 43 mg/dL (7-20)
[2019-06-18] MEDS ORDERED: FENTANYL CITRATE INJ/PF 100 MCG/2 ML AMPUL ONE (20:18)
[2019-06-18] MEDS ORDERED: FENTANYL CITRATE INJ/PF 100 MCG/2 ML AMPUL IV ONE ×2 (21:03→21:05)
[2019-06-18] MEDS: FENTANYL CITRATE/PF 600 MCG/60 ML BAG IV PRN ×4 (21:15→22:50)
[2019-06-18] MEDS: IPRATROPIUM/ALBUTEROL 0.5-2.5 MG/3 ML AMPUL NEB SCH ×2 (21:56→23:32)
[2019-06-18 23:41] LABS: HEMATOCRIT 29.8 % (36.0-47.0); HEMOGLOBIN 9.5 g/dL (12.0-15.5); MEAN CORPUSCULAR HEMOGLOBIN 24.2 pg (27.0-33.4); MEAN CORPUSCULAR HGB CONC 31.9 g/dL (32.0-36.0); MEAN CORPUSCULAR VOLUME 76 fl (80-97); PLATELET COUNT 147 10^3/uL (150-450); RED BLOOD COUNT 3.93 10^6/uL (3.72-5.28); RED CELL DISTRIBUTION WIDTH 27.6 % (11.5-14.0); WHITE BLOOD COUNT 19.6 10^3/uL (4.0-10.5)
[2019-06-18 23:54] LABS: ANION GAP 13 (5-19); BLOOD UREA NITROGEN 51 mg/dL (7-20); CALCIUM 8.4 mg/dL (8.4-10.2); CARBON DIOXIDE 22 mmol/L (22-30); CHLORIDE 109 mmol/L (98-107); GLUCOSE 178 mg/dL (75-110); POTASSIUM 3.3 mmol/L (3.6-5.0)
[2019-06-19] MEDS: FENTANYL CITRATE/PF 600 MCG/60 ML BAG IV PRN ×7 (00:10→21:10)
[2019-06-19] MEDS ORDERED: ALBUMIN HUMAN 12.5 GM/50 ML RTUINJ IV ONE ×2 (00:45→06:46)
--- NOTE | 2019-06-19 01:29 | RADIOLOGY REPORT (SQ) ---
EXAM DESCRIPTION: [facility]: XR CHEST 1 VIEW 06/19/2019 at CLINICAL HISTORY: 48 years Female; ARDS; FINDINGS: Since 06/18/2019 at 1438, endotracheal tube remains in place, 3 cm above miriam. Enteric tube tip in the stomach. Aeration of both lungs has significantly improved, with mild residual bilateral interstitial edema. No mediastinal shift or widening. IMPRESSION: 1. Significantly improved aeration since yesterday afternoon, with mild residual interstitial edema
[2019-06-19] MEDS ORDERED: GLUCAGON,HUMAN RECOMB 1 MG INJ IM PRN (01:58)
[2019-06-19] MEDS ORDERED: DEXTROSE 40% GEL 15 GM TUBE PO PRN ×4 (01:58→06:33)
[2019-06-19] MEDS ORDERED: DEXTROSE 50%-WATER 25 GM/50 ML DISP.SYRIN IV PRN ×2 (01:58)
[2019-06-19] MEDS: RINGERS SOLUTION,LACTATED 1,000 ML IV PRN ×2 (02:00→11:45)
[2019-06-19] MEDS: IPRATROPIUM/ALBUTEROL 0.5-2.5 MG/3 ML AMPUL NEB SCH ×6 (03:55→23:49)
[2019-06-19 04:13] LABS: HEMATOCRIT 27.7 % (36.0-47.0); HEMOGLOBIN 8.9 g/dL (12.0-15.5); MEAN CORPUSCULAR HEMOGLOBIN 24.4 pg (27.0-33.4); MEAN CORPUSCULAR HGB CONC 32.1 g/dL (32.0-36.0); MEAN CORPUSCULAR VOLUME 76 fl (80-97); PLATELET COUNT 146 10^3/uL (150-450); RED BLOOD COUNT 3.64 10^6/uL (3.72-5.28); RED CELL DISTRIBUTION WIDTH 27.5 % (11.5-14.0); WHITE BLOOD COUNT 17.5 10^3/uL (4.0-10.5)
[2019-06-19 04:24] LABS: ANION GAP 17 (5-19); BLOOD UREA NITROGEN 55 mg/dL (7-20); CALCIUM 8.4 mg/dL (8.4-10.2); CARBON DIOXIDE 20 mmol/L (22-30); CHLORIDE 109 mmol/L (98-107); GLUCOSE 168 mg/dL (75-110); POTASSIUM 3.3 mmol/L (3.6-5.0)
[2019-06-19 04:40] LABS: ABSOLUTE LYMPHOCYTES# (MANUAL) 0.2 10^3/uL (0.5-4.7); ANISOCYTOSIS 4+; BASOPHILS % (MANUAL) 0 % (0-2); EOSINOPHILS % (MANUAL) 0 % (0-6); HYPOCHROMASIA SLIGHT; LYMPHOCYTES % (MANUAL) 1 % (13-45); MONOCYTES % (MANUAL) 0 % (3-13); NUCLEATED RED BLOOD CELLS 1 /100 WBC (0); SEGMENTED NEUTROPHILS % (MAN) 99 % (42-78); TOTAL CELLS COUNTED 100
[2019-06-19 04:41] LABS: PLATELET COMMENT DECREASED; SCHISTOCYTES SLIGHT
[2019-06-19] MEDS: PROPOFOL 1,000 MG/100 ML INFUS..BTL IV PRN ×4 (05:00→22:11)
[2019-06-19] MEDS ORDERED: RINGERS SOLUTION,LACTATED 1,000 ML IV ONE (05:39)
[2019-06-19] MEDS: METHYLPREDNISOLONE INJ 125 MG/2 ML SDV IV SCH (05:49)
[2019-06-19 06:41] LABS: ARTERIAL BLOOD BASE EXCESS -1.5 mmol/L; ARTERIAL BLOOD HCO3 22.2 mmol/L (20-24); ARTERIAL BLOOD O2 SATURATION 90.8 % (94-98); ARTERIAL BLOOD PCO2 33.3 mmHg (35-45); ARTERIAL BLOOD PH 7.44 (7.35-7.45); ARTERIAL BLOOD PO2 56.5 mmHg (80-100); ARTERIAL BLOOD TOTAL CO2 23.2 mmol/L (21-25)
[2019-06-19] MEDS: INSULIN REG, HUMAN 100 UNIT/ML 3 ML VIAL (PYX) SUBCUT SCH ×3 (06:41→17:23)
[2019-06-19 06:42] LABS: ARTERIAL BLOOD FIO2 60%
[2019-06-19] MEDS: POTASSI CL 20 MEQ/50 ML RIDER 20 MEQ/50 ML RTUPB IV SCH ×4 (07:57→14:21)
[2019-06-19] MEDS ORDERED: FAMOTIDINE 20 MG TABLET NG SCH (10:00)
--- NOTE | 2019-06-19 11:03 | RADIOLOGY REPORT (SQ) ---
EXAM DESCRIPTION: CHEST SINGLE VIEW COMPLETED DATE/TIME: 06/19/2019 10:54 am REASON FOR STUDY: subcutaneous emphysema COMPARISON: 06/19/2019 at 0048 hours. EXAM PARAMETERS: NUMBER OF VIEWS: One view. TECHNIQUE: Single frontal radiographic view of the chest acquired. RADIATION DOSE: NA LIMITATIONS: None. FINDINGS: LUNGS AND PLEURA: No opacities, masses or pneumothorax. No pleural effusion. MEDIASTINUM AND HILAR STRUCTURES: No masses. Contour normal. HEART AND VASCULAR STRUCTURES: Heart normal in size. Normal vasculature. BONES: No acute findings. HARDWARE: Stable endotracheal tube and nasogastric tube. OTHER: Extensive subcutaneous emphysema. IMPRESSION: EXTENSIVE SUBCUTANEOUS EMPHYSEMA. OTHERWISE NO CHANGE. TECHNICAL DOCUMENTATION: JOB ID: [id number] 2010 [employer]- All Rights Reserved Reading location - IP/workstation name: [email or web address]
[2019-06-19] MEDS: DOCUSATE SODIUM 100 MG/10 ML UDC NG SCH (11:04)
[2019-06-19] MEDS: GUAIFENESIN SYRP 200 MG/10 ML UDC NG SCH ×2 (11:04→23:09)
[2019-06-19] MEDS: ENOXAPARIN SODIUM INJ 40 MG/0.4 ML DISP.SYRIN SUBCUT SCH (11:04)
[2019-06-19] MEDS: CEFEPIME HCL 2 GM in DEXTROSE 5%-WATER 50 ML IV SCH (11:05)
[2019-06-19] MEDS: METHADONE HCL 10 MG TABLET NG SCH (11:05)
[2019-06-19] MEDS: AZITHROMYCIN 500 MG in DEXTROSE 5%-WATER 250 ML IV SCH (11:05)
--- NOTE | 2019-06-19 11:34 | PDOC CRITICAL CARE PROG REPORT ---
General Date:: 06/19/19 ICU Day:: 3 Ventilator Day:: 2 Hospital Day:: 6 Resuscitation Status: Full Code Events in the past 12 to 24 Hours:: The patient was intubated yesterday afternoon for acute hypoxemic respiratory failure with oxygen desaturation on CPAP 12, FiO2 100%. He subsequently required pressure control ventilation with high PEEP (20). Overnight, she has been able to wean her FiO2 down to 60%. There has been interim development of neck and facial "swelling" without hyperemia. Crepitus is noted. The patient transferred to the ICU on 06/17/2019 due to concerns of altered mental status/agitation and increasing FiO2 requirement (requiring 90% on CPAP 10). He is currently sedated on propofol and fentanyl infusions. Review of systems relevant to events:: Respiratory: Still on CPAP, hypoxic. Neurologic: Altered mental status/delirium. Reason for ICU Addmission:: Acute hypoxemic respiratory failure - Medications: Medications reviewed and adjusted accordingly: Yes Sedation:: Propofol and fentanyl infusions Physical Exam Vital Signs: Temp Pulse Resp BP Pulse Ox 98.2 F 113 H 18 128/86 H 91 L 06/19/19 08:00 06/19/19 10:00 06/19/19 10:32 06/19/19 10:32 06/19/19 10:32 Pulse Oximeter Continuous Start: 06/16/19 13:03 Freq: RTQ4 Status: Complete Protocol: Document 06/17/19 10:50 LDA (Rec: 06/17/19 10:56 LDA [email or web address]) Pulse Oximetry Assessment Oxygen Saturation (92-100) 90 Oxygen Delivery Method CPAP Fraction of Inspired Oxygen (FIO2) 85 Equipment Usage Equipment in Use Continuous SpO2 Machine # n-3 Intake & Output 06/18/19 06/19/19 06/20/19 06:59 06:59 06:59 Intake Total 682 620 140 Output Total 1880 217 0 Balance -1198 403 140 Weight 109.4 kg 108.2 kg Weight/Height Weight 108.2 kg Height 1.55 m General appearance: PRESENT: no acute distress, obese, well-nourished Head exam: PRESENT: atraumatic, normocephalic, other - Puffy eyelids with crepitus (subcutaneous emphysema) Eye exam: PRESENT: conjunctiva pink, EOMI, PERRLA. ABSENT: scleral icterus Mouth exam: PRESENT: moist, tongue midline Neck exam: ABSENT: carotid bruit, JVD, lymphadenopathy, thyromegaly Respiratory exam: PRESENT: clear to auscultation piter, rhonchi - Scattered. ABSENT: rales Cardiovascular exam: PRESENT: RRR. ABSENT: diastolic murmur, rubs, systolic murmur Vascular exam: PRESENT: normal capillary refill GI/Abdominal exam: PRESENT: normal bowel sounds, soft, other - Pendulous abdomen, large pannus. ABSENT: distended, guarding, mass, rebound, tenderness Extremities exam: PRESENT: full ROM. ABSENT: calf tenderness, clubbing, pedal edema Musculoskeletal exam: PRESENT: normal inspection Neurological exam: PRESENT: CN II-XII grossly intact, other - Sedated with p ropofol/fentanyl Skin exam: PRESENT: other - Crepitus in the upper torso, neck and face Tubes/Lines: PRESENT: Endotracheal Tube Laboratory/Radiographs Laboratory Results: 06/19/19 03:49 06/19/19 03:49 06/18/19 06/18/19 06/18/19 04:15 15:30 17:18 WBC RBC Hgb Hct MCV MCH MCHC RDW Plt Count Seg Neutrophils % Carbonic Acid 1.23 HCO3/H2CO3 Ratio 19:1 ABG pH 7.38 ABG pCO2 40.9 ABG pO2 65.9 L ABG HCO3 23.6 ABG O2 Saturation 92.7 L ABG Base Excess -1.4 FiO2 100% Sodium 143.3 Potassium 3.7 Chloride 110 H Carbon Dioxide 23 Anion Gap 10 BUN 43 H D Creatinine 1.62 H Est GFR ( Amer) 41 L Glucose 177 H Lactic Acid Calcium 8.3 L Triglycerides 126 06/18/19 06/18/19 06/18/19 23:32 23:32 23:32 WBC 19.6 H RBC 3.93 Hgb 9.5 L Hct 29.8 L MCV 76 L MCH 24.2 L MCHC 31.9 L RDW 27.6 H Plt Count 147 L Seg Neutrophils % Carbonic Acid HCO3/H2CO3 Ratio ABG pH ABG pCO2 ABG pO2 ABG HCO3 ABG O2 Saturation ABG Base Excess FiO2 Sodium 144.2 Potassium 3.3 L Chloride 109 H Carbon Dioxide 22 Anion Gap 13 BUN 51 H Creatinine 2.24 H Est GFR ( Amer) 28 L Glucose 178 H Lactic Acid 2.1 Calcium 8.4 Triglycerides 06/19/19 06/19/19 06/19/19 03:49 03:49 03:49 WBC 17.5 H RBC 3.64 L Hgb 8.9 L Hct 27.7 L MCV 76 L MCH 24.4 L MCHC 32.1 RDW 27.5 H Plt Count 146 L Seg Neutrophils % Not Reportable Carbonic Acid HCO3/H2CO3 Ratio ABG pH ABG pCO2 ABG pO2 ABG HCO3 ABG O2 Saturation ABG Base Excess FiO2 Sodium 146.4 H Potassium 3.3 L Chloride 109 H Carbon Dioxide 20 L Anion Gap 17 BUN 55 H Creatinine 2.69 H Est GFR ( Amer) 23 L Glucose 168 H Lactic Acid 2.0 Calcium 8.4 Triglycerides 06/19/19 06/19/19 06/19/19 06:30 07:08 10:37 WBC RBC Hgb Hct MCV MCH MCHC RDW Plt Count Seg Neutrophils % Carbonic Acid 1.00 L HCO3/H2CO3 Ratio 22:1 ABG pH 7.44 ABG pCO2 33.3 L ABG pO2 56.5 L ABG HCO3 22.2 ABG O2 Saturation 90.8 L ABG Base Excess -1.5 FiO2 60% Sodium Potassium Chloride Carbon Dioxide Anion Gap BUN Creatinine Est GFR ( Amer) Glucose Lactic Acid 2.4 H 3.1 H Calcium Triglycerides 06/14/19 06/17/19 06/18/19 12:03 17:20 17:18 Troponin I 0.013 NT-Pro-B Natriuret Pep 228 H 3340 H 57701 H Impressions: Chest/Abdomen CTA 06/15/19 00:00 IMPRESSION: 1. Multifocal consolidation and ground-glass opacities, greatest within the bilateral lower lobes suggestive of multifocal pneumonia. No sign ificant effusion. 2. No pulmonary embolus. KUB X-Ray 06/18/19 14:18 IMPRESSION: The tip of the enteric tube projects within the gastric antrum. Chest X-Ray 06/19/19 10:31 IMPRESSION: EXTENSIVE SUBCUTANEOUS EMPHYSEMA. OTHERWISE NO CHANGE. All labs, radiographs, diagnostic studies and EKGs were personally reviewed: Yes In addition, reports of radiographic and diagnostic studies were read: Yes Assessment and Plan - Diagnosis (1) Acute hypoxemic respiratory failure Is this a current diagnosis for this admission?: Yes Plan: In light of interim development of subcutaneous emphysema, will decrease PEEP. Otherwise, titrate vent settings based on ABG results. Decrease steroids to 60 mg IV every 12 hours. (2) Subcutaneous emphysema Qualifiers: Encounter type: initial encounter Qualified Code(s): T79.7XXA - Traumatic subcutaneous emphysema, initial encounter Is this a current diagnosis for this admission?: Yes Plan: Stat chest x-ray was obtained: No pneumothorax. Expectant management. Decrease PEEP. (3) Acute kidney injury Is this a current diagnosis for this admission?: Yes Plan: Stop famotidine. Start Protonix. Renal dosing of medications. Avoid nephrotoxic medications. (4) Heart failure, diastolic, with acute decompensation Is this a current diagnosis for this admission?: Yes Plan: Strict I's and O's. Monitor urine output. (5) Elevated brain natriuretic peptide (BNP) level Is this a current diagnosis for this admission?: Yes (6) Bilateral pneumonia Qualifiers: Pneumonia type: due to unspecified organism Lung location: unspecified part of lung Qualified Code(s): J18.9 - Pneumonia, unspecified organism Is this a current diagnosis for this admission?: Yes Plan: While the patient certainly has an abnormal chest x-ray, I am unconvinced that the patient has an acute bacterial pneumonia. The patient has been afebrile; however, she does have leukocytosis (which more closely correlates with administration of high-dose steroid therapy). Nonetheless, she is currently on cefepime/azithromycin. While the patient does meet SIRS criteria, initiation of the sepsis bundle not indicated. (7) Nonproductive cough Is this a current diagnosis for this admission?: Yes (8) Atypical chest pain Is this a current diagnosis for this admission?: Yes (9) Abnormal chest xray Is this a current diagnosis for this admission?: Yes (10) Microcytic anemia Is this a current diagnosis for this admission?: Yes (11) Hypokalemia Is this a current diagnosis for this admission?: Yes Plan: Replete potassium (KCl 40 mEq IV +40 mEq by NG) Critical Time Critical Time (minutes): 60 Level of Care: ICU -: 1. The care of a critical patient is a dynamic process. This note is a office machines sales representative synopsis but static in nature. The timeframe for treatments given in order is not necessarily the actual time these treatments may have been done. 2. This patient requires critical care secondary to ongoing requirements for therapy not offered or safe outside the critical care environment. Transfer to a lower level of care will result in altered life or limb morbidity and mortality. 3. Multidisciplinary rounds completed. 4. ABCDE bundle addressed.
[2019-06-19] MEDS ORDERED: METHYLPREDNISOLONE INJ 125 MG/2 ML SDV IV SCH (11:45)
[2019-06-19] MEDS ORDERED: POTASSIUM CHLORIDE 20 MEQ PACKET NG ONE (12:30)
[2019-06-19] MEDS: METHYLPREDNISOLONE INJ 40 MG/1 ML SDV IV SCH (17:23)
[2019-06-19 18:31] LABS: ARTERIAL BLOOD BASE EXCESS -3.3 mmol/L; ARTERIAL BLOOD H2CO3 1.06 mmol/L (1.05-1.35); ARTERIAL BLOOD HCO3 21.2 mmol/L (20-24); ARTERIAL BLOOD O2 SATURATION 89.3 % (94-98); ARTERIAL BLOOD PCO2 35.3 mmHg (35-45); ARTERIAL BLOOD PO2 55.9 mmHg (80-100); ARTERIAL BLOOD TOTAL CO2 22.3 mmol/L (21-25)
[2019-06-19 18:32] LABS: ARTERIAL BLOOD FIO2 80%
[2019-06-20] MEDS: INSULIN REG, HUMAN 100 UNIT/ML 3 ML VIAL (PYX) SUBCUT SCH ×5 (00:56→23:11)
[2019-06-20] MEDS: PROPOFOL 1,000 MG/100 ML INFUS..BTL IV PRN ×4 (04:00→22:00)
[2019-06-20 04:38] LABS: HEMATOCRIT 23.8 % (36.0-47.0); MEAN CORPUSCULAR HEMOGLOBIN 23.8 pg (27.0-33.4); MEAN CORPUSCULAR HGB CONC 31.4 g/dL (32.0-36.0); MEAN CORPUSCULAR VOLUME 76 fl (80-97); PLATELET COUNT 148 10^3/uL (150-450); RED BLOOD COUNT 3.14 10^6/uL (3.72-5.28); WHITE BLOOD COUNT 21.6 10^3/uL (4.0-10.5)
[2019-06-20] MEDS: FENTANYL CITRATE/PF 600 MCG/60 ML BAG IV PRN ×6 (04:48→23:40)
[2019-06-20 04:53] LABS: ANION GAP 14 (5-19); BLOOD UREA NITROGEN 69 mg/dL (7-20); CALCIUM 8.1 mg/dL (8.4-10.2); CARBON DIOXIDE 20 mmol/L (22-30); CHLORIDE 109 mmol/L (98-107); GLUCOSE 137 mg/dL (75-110)
[2019-06-20 05:05] LABS: ABSOLUTE LYMPHOCYTES# (MANUAL) 1.5 10^3/uL (0.5-4.7); BASOPHILS % (MANUAL) 0 % (0-2); EOSINOPHILS % (MANUAL) 0 % (0-6); LYMPHOCYTES % (MANUAL) 7 % (13-45); MONOCYTES % (MANUAL) 0 % (3-13); NUCLEATED RED BLOOD CELLS 1 /100 WBC (0); SEGMENTED NEUTROPHILS % (MAN) 93 % (42-78); TOTAL CELLS COUNTED 100
[2019-06-20 05:06] LABS: TOXIC GRANULATION 1+
[2019-06-20 05:07] LABS: ANISOCYTOSIS 4+; HYPOCHROMASIA 1+; OVALOCYTES SLIGHT; PLATELET COMMENT DECREASED; POIKILOCYTOSIS 1+; POLYCHROMASIA 1+; SCHISTOCYTES SLIGHT; TEAR DROP CELLS SLIGHT
[2019-06-20 05:08] LABS: HEMOGLOBIN 7.5 g/dL (12.0-15.5)
[2019-06-20] MEDS: IPRATROPIUM/ALBUTEROL 0.5-2.5 MG/3 ML AMPUL NEB SCH ×5 (05:33→21:00)
[2019-06-20] MEDS: RINGERS SOLUTION,LACTATED 1,000 ML IV PRN (06:03)
[2019-06-20] MEDS: METHYLPREDNISOLONE INJ 40 MG/1 ML SDV IV SCH (06:03)
--- NOTE | 2019-06-20 08:13 | RADIOLOGY REPORT (SQ) ---
EXAM DESCRIPTION: CHEST SINGLE VIEW COMPLETED DATE/TIME: 06/20/2019 5:59 am REASON FOR STUDY: Respiratory Failure COMPARISON: 06/20/2019 EXAM PARAMETERS: NUMBER OF VIEWS: One view. TECHNIQUE: Single frontal radiographic view of the chest acquired. RADIATION DOSE: NA LIMITATIONS: None. FINDINGS: LUNGS AND PLEURA: Persistent patchy airspace disease greatest within the left lower lobe. No large effusion. No appreciable pneumothorax. MEDIASTINUM AND HILAR STRUCTURES: Stable. HEART AND VASCULAR STRUCTURES: Stable. BONES: No acute findings. HARDWARE: Endotracheal tube tip overlies midthoracic trachea. Enteric tube tip overlies gastric body . OTHER: Extensive subcutaneous gas. IMPRESSION: Extensive subcutaneous gas, stable. Patchy airspace disease, greatest within the left lower lobe. TECHNICAL DOCUMENTATION: JOB ID: [id number] 2010 [employer]- All Rights Reserved Reading location - IP/workstation name: [email or web address]
[2019-06-20] MEDS: METHADONE HCL 10 MG TABLET NG SCH (09:58)
[2019-06-20] MEDS: GUAIFENESIN SYRP 200 MG/10 ML UDC NG SCH ×2 (09:58→21:44)
[2019-06-20] MEDS: DOCUSATE SODIUM 100 MG/10 ML UDC NG SCH (09:58)
[2019-06-20] MEDS: ENOXAPARIN SODIUM INJ 40 MG/0.4 ML DISP.SYRIN SUBCUT SCH (09:59)
[2019-06-20] MEDS: CEFEPIME 1 GM/D5W RTU 1 GM/50 ML RTUPB IV SCH (09:59)
[2019-06-20] MEDS: PANTOPRAZOLE SODIUM 40 MG PACKET.DR NG SCH (09:59)
[2019-06-20] MEDS: AZITHROMYCIN 500 MG in DEXTROSE 5%-WATER 250 ML IV SCH (11:32)
[2019-06-20] MEDS ORDERED: NORMAL SALINE 250 ML IV PRN ×2 (13:12)
--- NOTE | 2019-06-20 13:21 | PDOC CRITICAL CARE PROG REPORT ---
General Date:: 06/20/19 ICU Day:: 4 Ventilator Day:: 3 Hospital Day:: 7 Resuscitation Status: Full Code Events in the past 12 to 24 Hours:: Remains intubated and sedated. Ventilator mode was changed yesterday due to significant dyssynchrony. The patient continues to require high PEEP; however, PEEP is now down to 14 (albeit with FiO2 100%). She previously required PEEP 20; however, this was decreased due to development of significant subcutaneous emphysema. She is currently sedated on propofol and fentanyl infusions. The patient transferred to the ICU on 06/17/2019 due to concerns of altered mental status/agitation and increasing FiO2 requirement (requiring 90% on CPAP 10). Review of systems relevant to events:: Respiratory: Still on CPAP, hypoxic. Neurologic: Altered mental sta tus/delirium. Reason for ICU Addmission:: Acute hypoxemic respiratory failure - Medications: Medications reviewed and adjusted accordingly: Yes Sedation:: Propofol and fentanyl infusions Physical Exam Vital Signs: Temp Pulse Resp BP Pulse Ox 101 F H 104 H 12 102/54 L 91 L 06/20/19 12:00 06/20/19 12:00 06/20/19 12:07 06/20/19 12:00 06/20/19 12:07 Pulse Oximeter Continuous Start: 06/16/19 13:0 3 Freq: RTQ4 Status: Complete Protocol: Document 06/17/19 10:50 LDA (Rec: 06/17/19 10:56 LDA [email or web address]) Pulse Oximetry Assessment Oxygen Saturation (92-100) 90 Oxygen Delivery Method CPAP Fraction of Inspired Oxygen (FIO2) 85 Equipment Usage Equipment in Use Continuous SpO2 Machine # n-3 Intake & Output 06/19/19 06/20/19 06/21/19 06:59 06:59 06:59 Intake Total 620 2067 100 Output Total 217 22 21 Balance 403 2045 79 Weight 108.2 kg 110.9 kg Weight/Height Weight 110.9 kg Height 1.55 m General appearance: PRESENT: no acute distress, morbidly obese, well-nourished, other - Intubated and sedated Head exam: PRESENT: other - Cutaneous emphysema involving the upper torso, neck and face (up to the eyelids) Eye exam: PRESENT: conjunctiva pink, EOMI, PERRLA. ABSENT: scleral icterus Neck exam: ABSENT: carotid bruit, JVD, lymphadenopathy, thyromegaly Respiratory exam: PRESENT: decreased breath sounds. ABSENT: rales, rhonchi, wheezes Cardiovascular exam: PRESENT: RRR. ABSENT: diastolic murmur, rubs, systolic murmur GI/Abdominal exam: PRESENT: normal bowel sounds, soft, other - Eugenie abdomen, large pannus. ABSENT: distended, guarding, mass, rebound, tenderness Extremities exam: PRESENT: full ROM. ABSENT: calf tenderness, clubbing, pedal edema Musculoskeletal exam: PRESENT: other - Subcutaneous emphysema (as described above) Neurological exam: PRESENT: reflexes normal, CN II-XII grossly intact Skin exam: PRESENT: dry, intact, warm. ABSENT: cyanosis, rash Tubes/Lines: PRESENT: Endotracheal Tube Laboratory/Radiographs Laboratory Results: 06/20/19 04:02 06/20/19 04:02 06/19/19 06/20/19 06/20/19 18:18 04:02 04:02 WBC 21.6 H RBC 3.14 L Hgb 7.5 L Hct 23.8 L MCV 76 L MCH 23.8 L MCHC 31.4 L RDW 28.0 H Plt Count 148 L Seg Neutrophils % Not Reportable Carbonic Acid 1.06 HCO3/H2CO3 Ratio 20:1 ABG pH 7.40 ABG pCO2 35.3 ABG pO2 55.9 L ABG HCO3 21.2 ABG O2 Saturation 89.3 L ABG Base Excess -3.3 FiO2 80% Sodium 142.8 Potassium 4.0 Chloride 109 H Carbon Dioxide 20 L Anion Gap 14 BUN 69 H Creatinine 4.77 H Est GFR ( Amer) 12 L Glucose 137 H Calcium 8.1 L 06/14/19 13:35 Blood Blood Culture - Final NO GROWTH IN 5 DAYS 06/14/19 12:03 Blood Blood Culture - Final NO GROWTH IN 5 DAYS 06/14/19 06/17/19 06/18/19 12:03 17:20 17:18 Troponin I 0.013 NT-Pro-B Natriuret Pep 228 H 3340 H 77804 H Impressions: Chest/Abdomen CTA 06/15/19 00:00 IMPRESSION: 1. Multifocal consolidation and ground-glass opacities, greatest within the bilateral lower lobes suggestive of multifocal pneumonia. No significant effusion. 2. No pulmonary embolus. KUB X-Ray 06/18/19 14:18 IMPRESSION: The tip of the enteric tube projects within the gastric antrum. Chest X-Ray 06/20/19 06:00 IMPRESSION: Extensive subcutaneous gas, stable. Patchy airspace disease, greatest within the left lower lobe. All labs, radiographs, diagnostic studies and EKGs were personally reviewed: Yes In addition, reports of radiographic and diagnostic studies were read: Yes Assessment and Plan - Diagnosis (1) Acute hypoxemic respiratory failure Is this a current diagnosis for this admission?: Yes Plan: Continue PSV 02/19. Titrate FiO2 as tolerated to maintain SPO2 93+%. Decrease steroids to 60 mg IV daily. (2) Microcytic anemia Is this a current diagnosis for this admission?: Yes Plan: Hemoglobin downtrending (9.5>8.9>7.5) without obvious abnormal blood loss. Type and screen. Transfuse 2 units PRBC. (3) Subcutaneous emphysema Qualifiers: Encounter type: initial encounter Qualified Code(s): T79.7XXA - Traumatic subcutaneous emphysema, initial encounter Is this a current diagnosis for this admission?: Yes Plan: Stat chest x-ray was obtained: No pneumothorax. Expectant management. Decrease PEEP. (4) Acute kidney injury Is this a current diagnosis for this admission?: Yes Plan: Nephrology consult (Dr. Larson) re: acute renal failure. Renal dosing of medications. Avoid nephrotoxic medications. (5) Heart failure, diastolic, with acute decompensation Is this a current diagnosis for this admission?: Yes (6) Elevated brain natriuretic peptide (BNP) level Is this a current diagnosis for this admission?: Yes (7) Bilateral pneumonia Qualifiers: Pneumonia type: due to unspecified organism Lung location: unspecified part of lung Qualified Code(s): J18.9 - Pneumonia, unspecified organism Is this a current diagnosis for this admission?: Yes Plan: While the patient certainly has an abnormal chest x-ray, I am unconvinced that the patient has an acute bacterial pneumonia. The patient has been afebrile; however, she does have leukocytosis (which more closely correlates with administration of high-dose steroid therapy, decreasing dose today, 06/20). Nonetheless, she is currently on cefepime/azithromycin. While the patient does meet SIRS criteria, initiation of the sepsis bundle not indicated. (8) Nonproductive cough Is this a current diagnosis for this admission?: Yes (9) Atypical chest pain Is this a current diagnosis for this admission?: Yes (10) Abnormal chest xray Is this a current diagnosis for this admission?: Yes (11) Hypokalemia Is this a current diagnosis for this admission?: Yes Critical Time Critical Time (minutes): 45 Level of Care: ICU -: 1. The care of a critical patient is a dynamic process. This note is a technical service representative synopsis but static in nature. The timeframe for treatments given in order is not necessarily the actual time these treatments may have been done. 2. This patient requires critical care secondary to ongoing requirements for therapy not offered or safe outside the critical care environment. Transfer to a lower level of care will result in altered life or limb morbidity and mortality. 3. Multidisciplinary rounds completed. 4. ABCDE bundle addressed.
[2019-06-20] MEDS ORDERED: FUROSEMIDE INJ/PF 100 MG/10 ML SDV IV ONE (17:35)
[2019-06-20] MEDS: ACETAMINOPHEN 325 MG TABLET NG PRN ×2 (18:32→22:44)
--- NOTE | 2019-06-20 23:36 | PDOC CONSULTATION ---
Consultation Consult Date: 06/20/19 Provider Consulted: JEANETH EASTON Consult reason:: MARY ANN, Anuria History of Present Illness Admission Date/PCP: 06/14/19 13:55 JS ANDERSON PA-C History of Present Illness: ULISES HERNANDEZ is a 48 year old female with history of hypertension and presumably chronic pain on methadone initially admitted on June 14, 2019 because of shortness of breath. Initial chest x-ray showed diffuse bilateral airspace disease, right greater than the left worrisome for pneumonia versus asymmetric pulmonary edema. Initial BNP was [address] of the chest also showed multifocal consolidation suggestive of multifocal pneumonia but no pulmonary embolism or pleural effusion. Patient was initially admitted in the floor but breathing has gotten worse so she was transferred to ICU on June 17. The day after the patient required intubation on June 18. Reportedly she required high PEEP of 20 before they were able to ventilate her. Intubation was complicated with subcutaneous emphysema. She also has episodes of hypotension couple of days ago with blood pressure as low as 87/56. Blood pressure remained to be on the low 100s. Currently the patient is febrile. Her white count is also going up. Her current BNP also rise to 23,100. She is currently being treated with IV antibiotics including azithromycin and cefepime. She is also on methylprednisolone. she has maintenance fluids of 50 mL an hour. Patient's kidney function also deteriorated upon admission here in the ICU. Her admission kidney function include a BUN of 19, and creatinine of 0.72. Since about 2 days ago, 06/18/2019 her kidney function started to deteriorate with initial BUN of 21 and creatinine of 1.62 that day. Yesterday she had a BUN of 55 and creatinine of 2.69 and today her BUN is 69 and creatinine of 4.77. For the past 24 hours the patient has been anuric with urine output of only 22 mL. She currently remains to be intubated with sedation. She was given furosemide 40 mg on June 17 and June 18 without much response. Past Medical History Cardiac Medical History: Reports: Hypertension-primary Endocrine Medical History: Reports: Obesity Renal/ Medical History: Denies: Hematuria Psychiatric Medical History: Reports: Depression Traumatic Medical History: Reports: Traumatic Brain Injury Past Surgical History Past Surgical History: Reports: None Social History Information Source: [facility] Records Lives with: Family Smoking Status: Never Smoker Electronic Cigarette use?: No Frequency of Alcohol Use: None Hx Recreational Drug Use: No Drugs: Methadone Hx Prescription Drug Abuse: Yes - Advance Directive Resuscitation Status: Full Code Family History Family History: Cannot be obtained at this time due to patient being intubated. Parental Family History Reviewed: No Children Family History Reviewed: No Sibling(s) Family History Reviewed.: No Medication/Allergy Home Medications: Methadone HCl [Dolophine 10 mg Tablet] 89 mg PO DAILY 06/14/19 Allergies/Adverse Reactions: No Known Allergies Allergy (Verified 04/28/12 17:16) Review of Systems ROS unobtainable: Due to endotracheal tube, Due to mental status Physical Exam Vital Signs: Temp Pulse Resp BP Pulse Ox 101.2 F H 110 H 13 111/58 L 94 06/20/19 17:14 06/20/19 17:14 06/20/19 17:14 06/20/19 17:14 06/20/19 17:14 Pulse Oximeter Continuous Start: 06/16/19 13:03 Freq: RTQ4 Status: Complete Protocol: Document 06/17/19 10:50 LDA (Rec: 06/17/19 10:56 LDA [id number]) Pulse Oximetry Assessment Oxygen Saturation (92-100) 90 Oxygen Delivery Method CPAP Fraction of Inspired Oxygen (FIO2) 85 Equipment Usage Equipment in Use Continuous SpO2 Machine # n-3 Intake & Output 06/19/19 06/20/19 06/21/19 06:59 06:59 06:59 Intake Total 620 2067 180 Output Total 217 22 21 Balance 403 2045 159 Weight 108.2 kg 110.9 kg Exam: General appearance: Intubated and sedated Head exam: PRESENT: atraumatic, normocephalic; mild facial swelling with crepitus on her upper chest Eye exam: PRESENT: Eyes are currently close Mouth exam: PRESENT: ET tube in place Neck exam: ABSENT: carotid bruit, JVD, lymphadenopathy, thyromegaly Respiratory exam: PRESENT: Coarse of breath sounds to auscultation bilaterally. ABSENT: rales, rhonchi, stridor, wheezes Cardiovascular exam: PRESENT: RRR, +S1, +S2. Tachycardic ABSENT: systolic murmur Pulses: PRESENT: normal radial pulses, normal dorsalis pedis pulses GI/Abdominal exam: PRESENT: Hypoactive bowel sounds, soft. ABSENT: guarding, mass, tenderness Rectal exam: Deferred Extremities exam: PRESENT: Bilateral mild upper extremity edema and grade 1 piter ateral lower extremity pitting pedal edema Musculoskeletal: ABSENT: deformity Neurological exam: PRESENT: Currently sedated Psychiatric exam: PRESENT: Cannot be assessed at this time Skin exam: PRESENT: intact, dry, warm. ABSENT: rash Results Laboratory Results: 06/20/19 04:02 06/20/19 04:02 06/19/19 06/20/19 06/20/19 18:18 04:02 04:02 WBC 21.6 H RBC 3.14 L Hgb 7.5 L Hct 23.8 L MCV 76 L MCH 23.8 L MCHC 31.4 L RDW 28.0 H Plt Count 148 L Seg Neutrophils % Not Reportable Carbonic Acid 1.06 HCO3/H2CO3 Ratio 20:1 ABG pH 7.40 ABG pCO2 35.3 ABG pO2 55.9 L ABG HCO3 21.2 ABG O2 Saturation 89.3 L ABG Base Excess -3.3 FiO2 80% Sodium 142.8 Potassium 4.0 Chloride 109 H Carbon Dioxide 20 L Anion Gap 14 BUN 69 H Creatinine 4.77 H Est GFR ( Amer) 12 L Glucose 137 H Calcium 8.1 L Blood Type Antibody Screen 06/20/19 13:58 WBC RBC Hgb Hct MCV MCH MCHC RDW Plt Count Seg Neutrophils % Carbonic Acid HCO3/H2CO3 Ratio ABG pH ABG pCO2 ABG pO2 ABG HCO3 ABG O2 Saturation ABG Base Excess FiO2 Sodium Potassium Chloride Carbon Dioxide Anion Gap BUN Creatinine Est GFR ( Amer) Glucose Calcium Blood Type O POSITIVE Antibody Screen NEGATIVE 06/14/19 13:35 Blood Blood Culture - Final NO GROWTH IN 5 DAYS 06/14/19 06/17/19 06/18/19 12:03 17:20 17:18 Troponin I 0.013 NT-Pro-B Natriuret Pep 228 H 3340 H 30563 H Impressions: Chest/Abdomen CTA 06/15/19 00:00 IMPRESSION: 1. Multifocal consolidation and ground-glass opacities, greatest within the bilateral lower lobes suggestive of multifocal pneumonia. No significant effusion. 2. No pulmonary embolus. KUB X-Ray 06/18/19 14:18 IMPRESSION: The tip of the enteric tube projects within the gastric antrum. Chest X-Ray 06/20/19 06:00 IMPRESSION: Extensive subcutaneous gas, stable. Patchy airspace disease, greatest within the left lower lobe. Assessment & Plan - Diagnosis (1) Acute kidney injury Is this a current diagnosis for this admission?: Yes Plan: Patient is currently anuric. She has a positive fluid balance and is currently hypervolemic. Patient's kidney function has deteriorated rapidly for the last 72 hours. Patient most likely has an acute tubular necrosis secondary to an episode of hypotension, acute respiratory failure with possibility of pneumonia. There is no urgent indication for acute renal replacement therapy at this time however with a rapid deterioration of the patient's kidney function I anticipate that the patient would warrant renal replacement therapy in the next 24 to 48 hours. I will order urinalysis, urine sodium and urine creatinine. I will also give the patient a trial of high-dose furosemide of 100 mg IV x1 dose today. If the patient responds well to the patient on maintenance diuretics. (2) Fluid overload Is this a current diagnosis for this admission?: Yes Plan: Patient BNP had risen significantly for the last 3 days. She is clinically hypervolemic. Echocardiogram done during admission showed normal left ventricular systolic function with LV ejection fraction of 55 to 60%. She also had grade 2/4 mild to moderate diastolic dysfunction. A trial of Lasix will be given today as above. (3) Acute hypoxemic respiratory failure Is this a current diagnosis for this admission?: Yes Plan: Patient is currently on mechanical ventilator. Defer to education faculty member. (4) Bilateral pneumonia Qualifiers: Pneumonia type: due to unspecified organism Lung location: unspecified part of lung Qualified Code(s): J18.9 - Pneumonia, unspecified organism Is this a current diagnosis for this admission?: Yes Plan: Initial chest x-rays and CTA of the chest revealed abnormal findings including multifocal consolidations which could represent pneumonia. Patient currently being treated with IV antibiotics, renal dosed. (5) Anemia Qualifiers: Anemia type: unspecified type Qualified Code(s): D64.9 - Anemia, unspecified Is this a current diagnosis for this admission?: Yes Plan: Patient is currently receiving blood transfusion. (6) Subcutaneous emphysema Qualifiers: Encounter type: initial encounter Qualified Code(s): T79.7XXA - Traumatic subcutaneous emphysema, initial encounter Is this a current diagnosis for this admission?: Yes (7) Methadone use Is this a current diagnosis for this admission?: Yes - Notes Notes: Thank you very much for this consultation. Discussed with Dr. Merino. - Time Time Spent: Greater than 70 Minutes
[2019-06-21] MEDS: IPRATROPIUM/ALBUTEROL 0.5-2.5 MG/3 ML AMPUL NEB SCH ×6 (00:07→20:41)
[2019-06-21 00:42] LABS: HEMATOCRIT 29.7 % (36.0-47.0); MEAN CORPUSCULAR HEMOGLOBIN 25.7 pg (27.0-33.4); MEAN CORPUSCULAR HGB CONC 32.4 g/dL (32.0-36.0); MEAN CORPUSCULAR VOLUME 79 fl (80-97); PLATELET COUNT 113 10^3/uL (150-450); RED BLOOD COUNT 3.75 10^6/uL (3.72-5.28); RED CELL DISTRIBUTION WIDTH 25.3 % (11.5-14.0); WHITE BLOOD COUNT 20.7 10^3/uL (4.0-10.5)
[2019-06-21 00:57] LABS: HEMOGLOBIN 9.6 g/dL (12.0-15.5)
[2019-06-21 01:30] LABS: ABSOLUTE LYMPHOCYTES# (MANUAL) 0.8 10^3/uL (0.5-4.7); ABSOLUTE MONOCYTES # (MANUAL) 0.4 10^3/uL (0.1-1.4); BAND NEUTROPHILS % (MANUAL) 2 % (3-5); BASOPHILS % (MANUAL) 0 % (0-2); EOSINOPHILS % (MANUAL) 0 % (0-6); LYMPHOCYTES % (MANUAL) 4 % (13-45); MONOCYTES % (MANUAL) 2 % (3-13); NUCLEATED RED BLOOD CELLS 2 /100 WBC (0); SEGMENTED NEUTROPHILS % (MAN) 92 % (42-78); TOTAL CELLS COUNTED 100
[2019-06-21 01:31] LABS: ANISOCYTOSIS 3+; PLATELET COMMENT DECREASED
[2019-06-21 01:33] LABS: POLYCHROMASIA SLIGHT
[2019-06-21 01:34] LABS: OVALOCYTES SLIGHT; SCHISTOCYTES SLIGHT; TEAR DROP CELLS SLIGHT
[2019-06-21] MEDS: RINGERS SOLUTION,LACTATED 1,000 ML IV PRN (02:16)
[2019-06-21] MEDS: PROPOFOL 1,000 MG/100 ML INFUS..BTL IV PRN ×4 (02:16→21:36)
[2019-06-21] MEDS: FENTANYL CITRATE/PF 600 MCG/60 ML BAG IV PRN ×6 (03:41→23:32)
[2019-06-21] MEDS: ACETAMINOPHEN 325 MG TABLET NG PRN ×2 (03:41→21:36)
[2019-06-21 04:20] LABS: APPEARANCE,URINE CLOUDY; BILIRUBIN,URINE NEGATIVE (NEGATIVE); COLOR,URINE AMBER; GLUCOSE, URINE 50 mg/dL (NEGATIVE); KETONES,URINE TRACE mg/dL (NEGATIVE); LEUKOCYTE ESTERASE,URINE MODERATE (NEGATIVE); NITRITE,URINE NEGATIVE (NEGATIVE); PROTEIN,URINE 100 mg/dL (NEGATIVE); URINE SPECIFIC GRAVITY 1.018; UROBILINOGEN,URINE NEGATIVE mg/dL (<2.0)
[2019-06-21 04:26] LABS: ANION GAP 14 (5-19); CALCIUM 7.7 mg/dL (8.4-10.2); CARBON DIOXIDE 17 mmol/L (22-30); CHLORIDE 111 mmol/L (98-107); GLUCOSE 97 mg/dL (75-110); PHOSPHORUS 4.4 mg/dL (2.5-4.5); POTASSIUM 4.4 mmol/L (3.6-5.0)
[2019-06-21 04:45] LABS: BLOOD UREA NITROGEN 89 mg/dL (7-20)
[2019-06-21 04:51] LABS: URINE CREATININE 94.5 mg/dL (15-278)
[2019-06-21] MEDS: INSULIN REG, HUMAN 100 UNIT/ML 3 ML VIAL (PYX) SUBCUT SCH ×4 (06:31→23:35)
[2019-06-21] MEDS: METHYLPREDNISOLONE INJ 40 MG/1 ML SDV IV SCH (06:53)
--- NOTE | 2019-06-21 09:22 | PDOC PROGRESS REPORT ---
Subjective Progress Note for:: 06/21/19 Subjective:: Patient continues to be intubated and sedated. She did not respond at all to the Lasix of 400 mg IV yesterday. Her urine output was only 27 mL for the past 24 hours. Kidney function continues to rapidly deteriorate. Reason For Visit: ACUTE HYPOXEMIC RESPIRATORY FAILURE, COMMUNITY Physical Exam Vital Signs: Temp Pulse Resp BP Pulse Ox 100.6 F H 114 H 25 H 128/73 H 88 L 06/21/19 08:00 06/21/19 08:00 06/21/19 08:00 06/21/19 08:00 06/21/19 08:00 Pulse Oximeter Continuous Start: 06/16/19 13:03 Freq: RTQ4 Status: Complete Protocol: Document 06/17/19 10:50 LDA (Rec: 06/17/19 10:56 LDA [id number]) Pulse Oximetry Assessment Oxygen Saturation (92-100) 90 Oxygen Delivery Method CPAP Fraction of Inspired Oxygen (FIO2) 85 Equipment Usage Equipment in Use Continuous SpO2 Machine # n-3 Intake & Output 06/20/19 06/21/19 06/22/19 06:59 06:59 06:59 Intake Total 2066 1949 Output Total 27 Balance 2044 1922 Weight 110.9 kg 112.1 kg Exam: General appearance: PRESENT: Intubated with FiO2 of 100% Head exam: PRESENT: atraumatic, normocephalic, crepitus in upper chest and neck seems to be improving Eye exam: PRESENT: Eyes closed Neck exam: ABSENT: JVD Respiratory exam: PRESENT: Diminished breath sounds. ABSENT: crackles, rales, rhonchi, unlabored, wheezes Cardiovascular exam: PRESENT: Regular rate rhythm -+S1, +S2. ABSENT: diastolic murmur, systolic murmur GI/Abdominal exam: PRESENT: normal bowel sounds, soft. ABSENT: guarding, mass, tenderness Extremities exam: Bilateral upper extremity edema with grade 1 bilateral lower extremity pitting edema Neurological exam: PRESENT: Sedated. Skin exam: PRESENT: dry, warm, pale Results Laboratory Results: 06/21/19 00:31 06/21/19 03:55 06/20/19 06/21/19 06/21/19 13:58 00:31 03:53 WBC 20.7 H RBC 3.75 Hgb 9.6 L D Hct 29.7 L MCV 79 L MCH 25.7 L MCHC 32.4 RDW 25.3 H Plt Count 113 L Seg Neutrophils % Not Reportable Sodium Potassium Chloride Carbon Dioxide Anion Gap BUN Creatinine Est GFR ( Amer) Glucose Calcium Phosphorus Magnesium Urine Color BOBY Urine Appearance CLOUDY Urine pH 5.0 Ur Specific [place] 1.018 Urine Protein 100 H Urine Glucose (UA) 50 H Urine Ketones TRACE H Urine Blood LARGE H Urine Nitrite NEGATIVE Ur Leukocyte Esterase MODERATE H Urine WBC (Auto) 37 Urine RBC (Auto) >182 Blood Type O POSITIVE Antibody Screen NEGATIVE 06/21/19 03:55 WBC RBC Hgb Hct MCV MCH MCHC RDW Plt Count Seg Neutrophils % Sodium 141.6 Potassium 4.4 Chloride 111 H Carbon Dioxide 17 L Anion Gap 14 BUN 89 H D Creatinine 6.43 H Est GFR ( Amer) 8 L Glucose 97 Calcium 7.7 L Phosphorus 4.4 Magnesium 2.5 H Urine Color Urine Appearance Urine pH Ur Specific [place] Urine Protein Urine Glucose (UA) Urine Ketones Urine Blood Urine Nitrite Ur Leukocyte Esterase Urine WBC (Auto) Urine RBC (Auto) Blood Type Antibody Screen 06/14/19 06/17/19 06/18/19 12:03 17:20 17:18 Troponin I 0.013 NT-Pro-B Natriuret Pep 228 H 3340 H 23879 H Impressions: Chest/Abdomen CTA 06/15/19 00:00 IMPRESSION: 1. Multifocal consolidation and ground-glass opacities, greatest within the bilateral lower lobes suggestive of multifocal pneumonia. No significant effusion. 2. No pulmonary embolus. KUB X-Ray 06/18/19 14:18 IMPRESSION: The tip of the enteric tube projects within the gastric antrum. Chest X-Ray 06/20/19 06:00 IMPRESSION: Extensive subcutaneous gas, stable. Patchy airspace disease, greatest within the left lower lobe. Assessment & Plan - Diagnosis (1) Acute kidney injury Is this a current diagnosis for this admission?: Yes Plan: This is due to ATN with fractional excretion of sodium of 3.4%. Patient has minimal proteinuria with microhematuria but this is a catheterized specimen. Patient continues to be anuric unfortunately. No response to high-dose diuretics. Patient will need acute renal replacement therapy. We will plan to do it tomorrow. Discussed with Dr. Merino. He said he will place the trialysis catheter for tomorrow's dialysis. Discontinue maintenance LR fluids. (2) Acute tubular necrosis Is this a current diagnosis for this admission?: Yes (3) Fluid overload Is this a current diagnosis for this admission?: Yes Plan: Secondary to MARY ANN. Patient also has baseline moderate diastolic dysfunction. (4) Acute hypoxemic respiratory failure Is this a current diagnosis for this admission?: Yes Plan: Intubated with high FiO2 requirement still. Defer to funeral attendant. (5) Bilateral pneumonia Qualifiers: Pneumonia type: due to unspecified organism Lung location: unspecified part of lung Qualified Code(s): J18.9 - Pneumonia, unspecified organism Is this a current diagnosis for this admission?: Yes Plan: On ceftriaxone and azithromycin. (6) Metabolic acidosis Is this a current diagnosis for this admission?: Yes Plan: Secondary to MARY ANN. We will plan for renal replacement therapy tomorrow. (7) Anemia Qualifiers: Anemia type: unspecified type Qualified Code(s): D64.9 - Anemia, unspecified Is this a current diagnosis for this admission?: Yes Plan: Status post 2 units packed RBC blood transfusion yesterday. (8) Subcutaneous emphysema Qualifiers: Encounter type: initial encounter Qualified Code(s): T79.7XXA - Traumatic subcutaneous emphysema, initial encounter Is this a current diagnosis for this admission?: Yes Plan: Improving. (9) Methadone use Is this a current diagnosis for this admission?: Yes - Time Time with patient: Greater than 35 minutes
[2019-06-21] MEDS: CEFEPIME 1 GM/D5W RTU 1 GM/50 ML RTUPB IV SCH (11:13)
[2019-06-21] MEDS: METHADONE HCL 10 MG TABLET NG SCH (11:13)
[2019-06-21] MEDS: DOCUSATE SODIUM 100 MG/10 ML UDC NG SCH (11:14)
[2019-06-21] MEDS: GUAIFENESIN SYRP 200 MG/10 ML UDC NG SCH ×2 (11:14→21:36)
[2019-06-21] MEDS: PANTOPRAZOLE SODIUM 40 MG PACKET.DR NG SCH (11:14)
[2019-06-21] MEDS: AZITHROMYCIN 500 MG in DEXTROSE 5%-WATER 250 ML IV SCH (11:15)
[2019-06-21] MEDS: ENOXAPARIN SODIUM INJ 30 MG/0.3 ML DISP.SYRIN SUBCUT SCH (11:15)
--- NOTE | 2019-06-21 14:57 | PDOC CRITICAL CARE PROG REPORT ---
General Date:: 06/21/19 ICU Day:: 5 Ventilator Day:: 4 Hospital Day:: 8 Resuscitation Status: Full Code Events in the past 12 to 24 Hours:: Remains intubated and sedated. On PSV /, FiO2 100%. Cutaneous emphysema seems to have visibly improved. She is currently sedated on propofol and fentanyl infusions. Patient discussed with Dr. Larson. Anticipate needing hemodialysis. The patient transferred to the ICU on 06/17/2019 due to concerns of altered mental status/agitation and increasing FiO2 requirement (requiring 90% on CPAP 10). Review of systems relevant to events:: Respiratory: Still on CPAP, hypoxic. Neurologic: Altered mental status/delirium. Reason for ICU Addmission:: Acute hypoxemic respiratory failure - Medications: Medications reviewed and adjusted accordingly: Yes Physical Exam Vital Signs: Temp Pulse Resp BP Pulse Ox 99.6 F 123 H 9 L 152/83 H 90 L 06/21/19 12:00 06/21/19 14:00 06/21/19 14:00 06/21/19 14:00 06/21/19 14:00 Pulse Oximeter Continuous Start: 06/16/19 13:03 Freq: RTQ4 Status: Complete Protocol: Document 06/17/19 10:50 LDA (Rec: 06/17/19 10:56 LDA [id number]) Pulse Oximetry Assessment Oxygen Saturation (92-100) 90 Oxygen Delivery Method CPAP Fraction of Inspired Oxygen (FIO2) 85 Equipment Usage Equipment in Use Continuous SpO2 Machine # n-3 Intake & Output 06/20/19 06/21/19 06/22/19 06:59 06:59 06:59 Intake Total 2066 2250 100 Output Total Balance 2044 222 80 Weight 110.9 kg 112.1 kg Weight/Height Weight 112.1 kg Height 1.55 m General appearance: PRESENT: no acute distress, other - Diffuse subcutaneous emphysema Eye exam: PRESENT: conjunctiva pink, EOMI, PERRLA. ABSENT: scleral icterus Mouth exam: PRESENT: moist, tongue midline Neck exam: PRESENT: other - Short, thick neck. ABSENT: carotid bruit, JVD, lymphadenopathy, thyromegaly Respiratory exam: PRESENT: decreased breath sounds, rales. ABSENT: rhonchi, wheezes Cardiovascular exam: PRESENT: RRR. ABSENT: diastolic murmur, rubs, systolic murmur Pulses: PRESENT: normal dorsalis pedis pul GI/Abdominal exam: PRESENT: normal bowel sounds, soft, other - Pendulous abdomen. Large pannus. ABSENT: distended, guarding, mass, rebound, tenderness Extremities exam: PRESENT: calf tenderness, pedal edema, +2 edema Musculoskeletal exam: PRESENT: normal inspection Skin exam: PRESENT: dry, intact, warm. ABSENT: cyanosis, rash Tubes/Lines: PRESENT: Endotracheal Tube Laboratory/Radiographs Laboratory Results: 06/21/19 00:31 06/21/19 03:55 06/20/19 06/21/19 06/21/19 13:58 00:31 03:53 WBC 20.7 H RBC 3.75 Hgb 9.6 L D Hct 29.7 L MCV 79 L MCH 25.7 L MCHC 32.4 RDW 25.3 H Plt Count 113 L Seg Neutrophils % Not Reportable Sodium Potassium Chloride Carbon Dioxide Anion Gap BUN Creatinine Est GFR ( Amer) Glucose Calcium Phosphorus Magnesium Urine Color BOBY Urine Appearance CLOUDY Urine pH 5.0 Ur Specific [place] 1.018 Urine Protein 100 H Urine Glucose (UA) 50 H Urine Ketones TRACE H Urine Blood LARGE H Urine Nitrite NEGATIVE Ur Leukocyte Esterase MODERATE H Urine WBC (Auto) 37 Urine RBC (Auto) >182 Blood Type O POSITIVE Antibody Screen NEGATIVE 06/21/19 03:55 WBC RBC Hgb Hct MCV MCH MCHC RDW Plt Count Seg Neutrophils % Sodium 141.6 Potassium 4.4 Chloride 111 H Carbon Dioxide 17 L Anion Gap 14 BUN 89 H D Creatinine 6.43 H Est GFR ( Amer) 8 L Glucose 97 Calcium 7.7 L Phosphorus 4.4 Magnesium 2.5 H Urine Color Urine Appearance Urine pH Ur Specific [place] Urine Protein Urine Glucose (UA) Urine Ketones Urine Blood Urine Nitrite Ur Leukocyte Esterase Urine WBC (Auto) Urine RBC (Auto) Blood Type Antibody Screen 06/14/19 06/17/19 06/18/19 12:03 17:20 17:18 Troponin I 0.013 NT-Pro-B Natriuret Pep 228 H 3340 H 23473 H Impressions: Chest/Abdomen CTA 06/15/19 00:00 IMPRESSION: 1. Multifocal consolidation and ground-glass opacities, greatest within the bilateral lower lobes suggestive of multifocal pneumonia. No significant effusion. 2. No pulmonary embolus. KUB X-Ray 02/10/20 14:18 IMPRESSION: The tip of the enteric tube projects within the gastric antrum. Chest X-Ray 06/20/19 06:00 IMPRESSION: Extensive subcutaneous gas, stable. Patchy airspace disease, greatest within the left lower lobe. All labs, radiographs, diagnostic studies and EKGs were personally reviewed: Yes In addition, reports of radiographic and diagnostic studies were read: Yes Assessment and Plan - Diagnosis (1) Acute hypoxemic respiratory failure Is this a current diagnosis for this admission?: Yes Plan: Continue PSV 10/14. Titrate FiO2 as tolerated to maintain SPO2 93+%. Continue Solu-Medrol 60 mg IV daily. (2) Microcytic anemia Is this a current diagnosis for this admission?: Yes (3) Subcutaneous emphysema Qualifiers: Encounter type: initial encounter Qualified Code(s): T79.7XXA - Traumatic subcutaneous emphysema, initial encounter Is this a current diagnosis for this admission?: Yes (4) Acute kidney injury Is this a current diagnosis for this admission?: Yes Plan: Case discussed with Dr. Larson. Anticipate need for hemodialysis. Will insert Trialysis catheter today. Renal dosing of medications. Avoid nephrotoxic medications. (5) Heart failure, diastolic, with acute decompensation Is this a current diagnosis for this admission?: Yes Plan: Strict I's and O's. Monitor urine output. (6) Elevated brain natriuretic peptide (BNP) level Is this a current diagnosis for this admission?: Yes (7) Bilateral pneumonia Qualifiers: Pneumonia type: due to unspecified organism Lung location: unspecified part of lung Qualified Code(s): J18.9 - Pneumonia, unspecified organism Is this a current diagnosis for this admission?: Yes Plan: While the patient certainly has an abnormal chest x-ray, I am unconvinced that the patient has an acute bacterial pneumonia. The patient has been afebrile; however, she does have leukocytosis (which more closely correlates with administration of high-dose steroid therapy, decreasing dose today, 06/20). Nonetheless, she is currently on cefepime/azithromycin. While the patient does meet SIRS criteria, initiation of the sepsis bundle not indicated. (8) Nonproductive cough Is this a current diagnosis for this admission?: Yes (9) Atypical chest pain Is this a current diagnosis for this admission?: Yes (10) Abnormal chest xray Is this a current diagnosis for this admission?: Yes (11) Hypokalemia Is this a current diagnosis for this admission?: Yes Critical Time Critical Time (minutes): 45 Level of Care: ICU -: 1. The care of a critical patient is a dynamic process. This note is a inbound call center representative synopsis but static in nature. The timeframe for treatments given in order is not necessarily the actual time these treatments may have been done. 2. This patient requires critical care secondary to ongoing requirements for therapy not offered or safe outside the critical care environment. Transfer to a lower level of care will result in altered life or limb morbidity and mortality. 3. Multidisciplinary rounds completed. 4. ABCDE bundle addressed.
--- NOTE | 2019-06-21 15:37 | Operative Report ---
Bedside Procedure - History of Present Illness History of Present Illness: ULISES HERNANDEZ is a 48 year old female with history of hypertension and presumably chronic pain on methadone initially admitted on June 14, 2019 because of shortness of breath. Initial chest x-ray showed diffuse bilateral airspace disease, right greater than the left worrisome for pneumonia versus asymmetric pulmonary edema. Initial BNP was [address] of the chest also showed multifocal consolidation suggestive of multifocal pneumonia but no pulmonary embolism or pleural effusion. Patient was initially admitted in the floor but breathing has gotten worse so she was transferred to ICU on June 17. The day after the patient required intubation on June 18. Reportedly she required high PEEP of 20 before they were able to ventilate her. Intubation was complicated with subcutaneous emphysema. She also has episodes of hypotension couple of days ago with blood pressure as low as 87/56. Blood pressure remained to be on the low 100s. Currently the patient is febrile. Her white count is also going up. Her current BNP also rise to 23,100. She is currently being treated with IV antibiotics including azithromycin and cefepime. She is also on methylprednisolone. she has maintenance fluids of 50 mL an hour. Patient's kidney function also deteriorated upon admission here in the ICU. Her admission kidney function include a BUN of 19, and creatinine of 0.72. Since about 2 days ago, 06/18/2019 her kidney function started to deteriorate with initial BUN of 21 and creatinine of 1.62 that day. Yesterday she had a BUN of 55 and creatinine of 2.69 and today her BUN is 69 and creatinine of 4.77. For the past 24 hours the patient has been anuric with urine output of only 22 mL. She currently remains to be intubated with sedation. She was given furosemide 40 mg on June 17 and June 18 without much response. Indication for Procedure: acute renal failure, anuria Date: 06/18/19 Provider: LAUREEN GOMEZ - Central Line Left Internal jugular Time completed: 15:36 Consent obtained: No - 2 physician signatures for medical necessity Central line pre-insertion: Sterile PPE donned, Chloraprep applied, Sterile drapes applied Central line lumen type: Other - 20 cm Trialysis HD catheter Anesthetic type: 1% Lidocaine mL's of anesthesia: 5 Ultrasound guided: Yes CM at insertion site: 19 Line secured with sutures: Yes Central line post-insertion: Blood return from lumens, Biopatch applied, Sutured, Sterile dressing applied Number of attempts: 1 Complications: No
--- NOTE | 2019-06-21 18:14 | RADIOLOGY REPORT (SQ) ---
EXAM DESCRIPTION: CHEST SINGLE VIEW COMPLETED DATE/TIME: 06/21/2019 4:50 pm REASON FOR STUDY: line placement (HD catheter) COMPARISON: 06/20/2019 EXAM PARAMETERS: NUMBER OF VIEWS: One view. TECHNIQUE: Single frontal radiographic view of the chest acquired. RADIATION DOSE: NA LIMITATIONS: None. FINDINGS: LUNGS AND PLEURA: Opacification the left base. Cannot exclude mild pulmonary edema. No p neumothorax. MEDIASTINUM AND HILAR STRUCTURES: No masses. Contour normal. HEART AND VASCULAR STRUCTURES: Heart size is borderline. BONES: No acute findings. HARDWARE: Endotracheal tube remains in place with the tip of the tube 4 cm above the miriam. There i s a left internal jugular catheter or sheath with the tip in the superior vena cava. OTHER: There is less subcutaneous free air. IMPRESSION: 1. Left internal jugular catheter placement with no pneumothorax. 2. Borderline heart size. Cannot exclude pulmonary edema. 3. Cannot exclude airspace disease in the left lower lobe, pneumonia versus atelectasis. 4. Decrease in the subcutaneous free air. TECHNICAL DOCUMENTATION: JOB ID: [id number] 2010 [employer]- All Rights Reserved Reading location - IP/workstation name: [email or web address]
[2019-06-21] MEDS ORDERED: METOPROLOL TARTRATE PF/INJ 5 MG/5 ML SDV IV ONE ×2 (23:45)
[2019-06-22] MEDS: IPRATROPIUM/ALBUTEROL 0.5-2.5 MG/3 ML AMPUL NEB SCH ×6 (00:24→19:51)
[2019-06-22] MEDS: PROPOFOL 1,000 MG/100 ML INFUS..BTL IV PRN ×2 (02:24→06:00)
[2019-06-22] MEDS: FENTANYL CITRATE/PF 600 MCG/60 ML BAG IV PRN ×3 (03:35→22:15)
[2019-06-22] MEDS: ACETAMINOPHEN 325 MG TABLET NG PRN ×4 (03:53→21:41)
[2019-06-22 04:19] LABS: ANION GAP 19 (5-19); CALCIUM 7.7 mg/dL (8.4-10.2); CARBON DIOXIDE 15 mmol/L (22-30); CHLORIDE 108 mmol/L (98-107)
[2019-06-22 04:30] LABS: HEMOGLOBIN 10.2 g/dL (12.0-15.5); MEAN CORPUSCULAR HEMOGLOBIN 25.7 pg (27.0-33.4); MEAN CORPUSCULAR HGB CONC 31.9 g/dL (32.0-36.0); MEAN CORPUSCULAR VOLUME 81 fl (80-97); PLATELET COUNT 145 10^3/uL (150-450); RED BLOOD COUNT 3.97 10^6/uL (3.72-5.28); RED CELL DISTRIBUTION WIDTH 25.4 % (11.5-14.0); WHITE BLOOD COUNT 24.1 10^3/uL (4.0-10.5)
[2019-06-22 04:40] LABS: POTASSIUM 6.3 mmol/L (3.6-5.0)
[2019-06-22 04:41] LABS: BLOOD UREA NITROGEN 120 mg/dL (7-20); GLUCOSE 43 mg/dL (75-110)
[2019-06-22] MEDS ORDERED: NORMAL SALINE 1000 ML 1,000 ML IV PRN (05:00)
[2019-06-22] MEDS ORDERED: HEPARIN SOD (PORCINE) 1,000 UNIT/ML 10 ML VIAL IV PRN (05:00)
[2019-06-22 05:01] LABS: ABSOLUTE LYMPHOCYTES# (MANUAL) 1.2 10^3/uL (0.5-4.7); ABSOLUTE MONOCYTES # (MANUAL) 0.2 10^3/uL (0.1-1.4); BASOPHILS % (MANUAL) 0 % (0-2); EOSINOPHILS % (MANUAL) 0 % (0-6); LYMPHOCYTES % (MANUAL) 5 % (13-45); MONOCYTES % (MANUAL) 1 % (3-13); NUCLEATED RED BLOOD CELLS 1 /100 WBC (0); SEGMENTED NEUTROPHILS % (MAN) 94 % (42-78); TOTAL CELLS COUNTED 100
[2019-06-22 05:02] LABS: ANISOCYTOSIS 3+; HYPOCHROMASIA SLIGHT; TOXIC GRANULATION SLIGHT
[2019-06-22 05:03] LABS: BURR CELLS SLIGHT; OVALOCYTES SLIGHT; PLATELET COMMENT DECREASED; POIKILOCYTOSIS SLIGHT; SCHISTOCYTES SLIGHT
[2019-06-22] MEDS: METHYLPREDNISOLONE INJ 40 MG/1 ML SDV IV SCH (05:59)
[2019-06-22] MEDS: DEXTROSE 5%-WATER 250 ML with PHENYLEPHRINE HCL 40 MG IV PRN ×6 (06:10→16:49)
[2019-06-22] MEDS ORDERED: PHENYLEPHRINE HCL INJ/PF 10 MG/1 ML SDV ONE (06:10)
[2019-06-22] MEDS: INSULIN REG, HUMAN 100 UNIT/ML 3 ML VIAL (PYX) SUBCUT SCH ×4 (06:28→23:48)
[2019-06-22] MEDS: ENOXAPARIN SODIUM INJ 30 MG/0.3 ML DISP.SYRIN SUBCUT SCH (09:41)
[2019-06-22] MEDS: CEFEPIME 1 GM/D5W RTU 1 GM/50 ML RTUPB IV SCH (09:48)
[2019-06-22] MEDS: PANTOPRAZOLE SODIUM 40 MG PACKET.DR NG SCH (09:48)
[2019-06-22] MEDS: AZITHROMYCIN 500 MG in DEXTROSE 5%-WATER 250 ML IV SCH (09:49)
[2019-06-22] MEDS: DOCUSATE SODIUM 100 MG/10 ML UDC NG SCH (09:50)
[2019-06-22] MEDS: GUAIFENESIN SYRP 200 MG/10 ML UDC NG SCH ×2 (09:50→21:40)
--- NOTE | 2019-06-22 16:34 | PDOC PROGRESS REPORT ---
Subjective Progress Note for:: 06/22/19 Subjective:: I am seeing the patient during her first dialysis treatment. She remains to be intubated and sedated. The plan is to take some ultrafiltration off today so the dialysis machine was set to do that initially. However during the first hour of dialysis the patient's blood pressure started going down to as low as 50/64 so we had to turn off the ultrafiltration for some time and for the vasopressor to be increased. Patient still appears to have labored breathing d espite being on mechanical ventilation. After turning the ultrafiltration off her blood pressure came back up a little bit with the increase in the Felice- Synephrine. We then resume dialysis treatment with very minimal ultrafiltration. Patient is being monitored throughout dialysis treatment very closely by our dialysis nurse. Reason For Visit: ACUTE HYPOXEMIC RESPIRATORY FAILURE, COMMUNITY Physical Exam Vital Signs: Temp Pulse Resp BP Pulse Ox 101.8 F H 128 H 25 H 129/58 H 96 06/22/19 06:00 06/22/19 08:25 06/22/19 08:25 06/22/19 06:42 06/22/19 08:25 Pulse Oximeter Continuous Start: 06/16/19 13:03 Freq: RTQ4 Status: Complete Protocol: Document 06/17/19 10:50 LDA (Rec: 06/17/19 10:56 LDA [email or web address]) Pulse Oximetry Assessment Oxygen Saturation (92-100) 90 Oxygen Delivery Method CPAP Fraction of Inspired Oxygen (FIO2) 85 Equipment Usage Equipment in Use Continuous SpO2 Machine # n-3 Intake & Output 06/21/19 06/22/19 06/23/19 06:59 06:59 06:59 Intake Total 2250 462 Output Total 27 79 Balance 2223 383 Weight 112.1 kg 113.1 kg Vitals currently on dialysis: 90/50, lowest BP 50/64, HR 125, BFR 250ml/min and DFR 600 ml/min, RR of 31 with FiO2 100% on mechanical ventilation. Exam: General appearance: PRESENT: Patient is intubated with FiO2 of 100% and continues to appear with labored breathing though, ill-appearing Head exam: PRESENT: atraumatic, normocephalic Eye exam: PRESENT: conjunctiva pink, PERRLA. ABSENT: scleral icterus Neck exam: ABSENT: JVD Respiratory exam: PRESENT: Diminished breath sounds. ABSENT: crackles, rales, rhonchi, unlabored, wheezes Cardiovascular exam: PRESENT: Regular rate rhythm -+S1, +S2. Tachycardic ABSENT: diastolic murmur, systolic murmur GI/Abdominal exam: PRESENT: normal bowel sounds, soft. ABSENT: guarding, mass, tenderness Extremities exam: Bilateral upper extremity edema and grade 2 bilateral lower extremity pitting edema Neurological exam: PRESENT: Sedated. Skin exam: PRESENT: dry, warm, generally pale Results Laboratory Results: 06/22/19 03:50 06/22/19 03:50 06/22/19 06/22/19 06/22/19 03:50 03:50 04:30 WBC 24.1 H RBC 3.97 Hgb 10.2 L Hct 32.0 L MCV 81 MCH 25.7 L MCHC 31.9 L RDW 25.4 H Plt Count 145 L Seg Neutrophils % Not Reportable Sodium 141.7 Potassium 6.3 H* D Chloride 108 H Carbon Dioxide 15 L Anion Gap 19 BUN 120 H D Creatinine 7.52 H Est GFR ( Amer) 7 L Glucose 43 L Lactic Acid 1.3 Calcium 7.7 L 06/14/19 06/17/19 06/18/19 12:03 17:20 17:18 Troponin I 0.013 NT-Pro-B Natriuret Pep 228 H 3340 H 59949 H Impressions: Chest/Abdomen CTA 06/15/19 00:00 IMPRESSION: 1. Multifocal consolidation and ground-glass opacities, greatest within the bilateral lower lobes suggestive of multifocal pneumonia. No significant effusion. 2. No pulmonary embolus. KUB X-Ray 06/18/19 14:18 IMPRESSION: The tip of the enteric tube projects within the gastric antrum. Chest X-Ray 06/21/19 00:00 IMPRESSION: 1. Left internal jugular catheter placement with no pneumothorax. 2. Borderline heart size. Cannot exclude pulmonary edema. 3. Cannot exclude airspace disease in the left lower lobe, pneumonia versus atelectasis. 4. Decrease in the subcutaneous free air. Assessment & Plan - Diagnosis (1) Acute kidney injury Is this a current diagnosis for this admission?: Yes Plan: This is due to ATN with fractional excretion of sodium of 3.4%. Patient has minimal proteinuria with microhematuria but this is a catheterized specimen. Patient continues to be anuric unfortunately. No response to high-dose diuretics. The days the patient first dialysis treatment. We will do dialysis today for 2.5 hours, using the patient's trialysis catheter, with 1K for 1.5 hours then 2K potassium bath, blood flow rate of 250 mL per minute, dialysate flow rate of 600 mL per minute, ultrafiltration 1 to 2 L as tolerated only, no heparin and no Procrit. Patient has been closely monitored throughout dialysis treatment and ultrafiltration adjusted accordingly depending on the blood pressures. Vasopressor was continued and increase in dose during dialysis treatment today. At the end of the treatment we were only able to obtain about 1100 mL of ultrafiltration due to hypotension. Given the patient's hypotension and fluid overload the other option will be a continuous renal replacement therapy. Since we do not have CRRT in the hospital, the patient would need to be transferred to a tertiary care facility. I recommended this to Dr. Merino, the [facility]. We do not have dialysis either during the weekend so if she continues to deteriorate I think she really might need the CRRT and be transferred. (2) Acute tubular necrosis Is this a current diagnosis for this admission?: Yes Plan: Secondary to hypotension. (3) Fluid overload Is this a current diagnosis for this admission?: Yes Plan: Secondary to MARY ANN. Patient also has baseline moderate diastolic dysfunction. Unfortunately we are unable to get too much ultrafiltration due to the patient's hypotension today. As mentioned above the other option will be a CRRT which w ould require the patient to be transferred to another facility. (4) Hyperkalemia Is this a current diagnosis for this admission?: Yes Plan: Patient is being dialyzed on low potassium bath. (5) Acute hypoxemic respiratory failure Is this a current diagnosis for this admission?: Yes Plan: Intubated with high FiO2 requirement still. Defer to [facility]. (6) Bilateral pneumonia Qualifiers: Pneumonia type: due to unspecified organism Lung location: unspecified part of lung Qualified Code(s): J18.9 - Pneumonia, unspecified organism Is this a current diagnosis for this admission?: Yes Plan: On Cefepime and azithromycin. (7) Metabolic acidosis Is this a current diagnosis for this admission?: Yes Plan: Secondary to MARY ANN. Now on her first dialysis treatment. (8) Anemia Qualifiers: Anemia type: unspecified type Qualified Code(s): D64.9 - Anemia, unspecified Is this a current diagnosis for this admission?: Yes (9) Subcutaneous emphysema Qualifiers: Encounter type: initial encounter Qualified Code(s): T79.7XXA - Traumatic subcutaneous emphysema, initial encounter Is this a current diagnosis for this admission?: Yes Plan: Improving. 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
--- NOTE | 2019-06-22 16:41 | PDOC CRITICAL CARE PROG REPORT ---
General Date:: 06/22/19 ICU Day:: 6 Ventilator Day:: 5 Hospital Day:: 9 Resuscitation Status: Full Code Events in the past 12 to 24 Hours:: Temporary hemodialysis catheter placed yesterday. Had first HD session today. Neurology assistance appreciated. Remains intubated and sedated. On PSV 02/19, FiO2 100%. Subcutaneous emphysema continues to improve. She is currently sedated on propofol and fentanyl infusions. Patient discussed with Dr. Larson. The patient transferred to the ICU on 06/17/2019 due to concerns of altered mental status/agitation and increasing FiO2 requirement (requiring 90% on CPAP 10). Review of systems relevant to events:: Respiratory: Still on CPAP, hypoxic. Neurologic: Altered mental status/delirium. Reason for ICU Addmission:: Acute hypoxemic respiratory failure - Medications: Medications reviewed and adjusted accordingly: Yes Sedation:: Propofol and fentanyl infusions Physical Exam Vital Signs: Temp Pulse Resp BP Pulse Ox 101.7 F H 123 H 31 H 101/48 L 96 06/22/19 12:00 06/22/19 12:00 06/22/19 14:00 06/22/19 13:58 06/22/19 14:00 Pulse Oximeter Continuous Start: 06/16/19 13:03 Freq: RTQ4 Status: Complete Protocol: Document 06/17/19 10:50 PRECIOUS (Rec: 06/17/19 10:56 PRECIOUS [email or web address]) Pulse Oximetry Assessment Oxygen Saturation (92-100) 90 Oxygen Delivery Method CPAP Fraction of Inspired Oxygen (FIO2) 85 Equipment Usage Equipment in Use Continuous SpO2 Machine # n-3 Intake & Output 06/21/19 06/22/19 06/23/19 06:59 06:59 06:59 Intake Total 2250 762 279 Output Total 27 79 20 Balance 2223 683 259 Weight 112.1 kg 113.1 kg Weight/Height Weight 113.1 kg Height 1.55 m General appearance: PRESENT: no acute distress, morbidly obese, other - Debated, sedated Head exam: PRESENT: atraumatic, normocephalic Eye exam: PRESENT: conjunctiva pink, EOMI, PERRLA. ABSENT: scleral icterus Mouth exam: PRESENT: moist, tongue midline Respiratory exam: PRESENT: accessory muscle use, crackles - Views bilateral, decreased breath sounds, rales. ABSENT: rhonchi, wheezes Cardiovascular exam: PRESENT: RRR. ABSENT: diastolic murmur, rubs, systolic murmur GI/Abdominal exam: PRESENT: normal bowel sounds, soft, other - Large pannus. Pendulous abdomen.. ABSENT: distended, guarding, mass, rebound, tenderness Extremities exam: PRESENT: full ROM, pedal edema, +2 edema. ABSENT: calf tenderness, clubbing Skin exam: PRESENT: dry, intact, warm. ABSENT: cyanosis, rash Tubes/Lines: PRESENT: Endotracheal Tube Laboratory/Radiographs Laboratory Results: 06/22/19 03:50 06/22/19 03:50 06/22/19 06/22/19 06/22/19 03:50 03:50 04:30 WBC 24.1 H RBC 3.97 Hgb 10.2 L Hct 32.0 L MCV 81 MCH 25.7 L MCHC 31.9 L RDW 25.4 H Plt Count 145 L Seg Neutrophils % Not Reportable Sodium 141.7 Potassium 6.3 H* D Chloride 108 H Carbon Dioxide 15 L Anion Gap 19 BUN 120 H D Creatinine 7.52 H Est GFR ( Amer) 7 L Glucose 43 L Lactic Acid 1.3 Calcium 7.7 L 06/14/19 06/17/19 06/18/19 12:03 17:20 17:18 Troponin I 0.013 NT-Pro-B Natriuret Pep 228 H 3340 H 19532 H Impressions: Chest/Abdomen CTA 06/15/19 00:00 IMPRESSION: 1. Multifocal consolidation and ground-glass opacities, greatest within the bilateral lower lobes suggestive of multifocal pneumonia. No significant effusion. 2. No pulmonary embolus. KUB X-Ray 06/18/19 14:18 IMPRESSION: The tip of the enteric tube projects within the gastric antrum. Chest X-Ray 06/21/19 00:00 IMPRESSION: 1. Left internal jugular catheter placement with no pneumothorax. 2. Borderline heart size. Cannot exclude pulmonary edema. 3. Cannot exclude airspace disease in the left lower lobe, pneumonia versus atelectasis. 4. Decrease in the subcutaneous free air. All labs, radiographs, diagnostic studies and EKGs were personally reviewed: Yes In addition, reports of radiographic and diagnostic studies were read: Yes Assessment and Plan - Diagnosis (1) Acute hypoxemic respiratory failure Is this a current diagnosis for this admission?: Yes Plan: Continue PSV 10/14. Titrate FiO2 as tolerated to maintain SPO2 93+%. Decrease Solu-Medrol to 40 mg IV daily. (2) Acute kidney injury Is this a current diagnosis for this admission?: Yes Plan: Hemodialysis per nephrology. Nephrology assistance appreciated. Renal dosing of medications. Avoid nephrotoxic medications. (3) Microcytic anemia Is this a current diagnosis for this admission?: Yes Plan: Hemoglobin stable (7.5>10.2 after transfusion of 2 units PRBC) without obvious abnormal blood loss. (4) Subcutaneous emphysema Qualifiers: Encounter type: initial encounter Qualified Code(s): T79.7XXA - Traumatic subcutaneous emphysema, initial encounter Is this a current diagnosis for this admission?: Yes Plan: Stat chest x-ray was obtained: No pneumothorax. Expectant management. Avoid high PEEP. Wean PEEP as tolerated. (5) Heart failure, diastolic, with acute decompensation Is this a current diagnosis for this admission?: Yes Plan: Strict I's and O's. Monitor urine output. (6) Bilateral pneumonia Qualifiers: Pneumonia type: due to unspecified organism Lung location: unspecified part of lung Qualified Code(s): J18.9 - Pneumonia, unspecified organism Is this a current diagnosis for this admission?: Yes Plan: While the patient certainly has an abnormal chest x-ray, I am unconvinced that the patient has an acute bacterial pneumonia. The patient has been afebrile; however, she does have leukocytosis (which more closely correlates with administration of high-dose steroid therapy). Nonetheless, she is currently on cefepime/azithromycin. While the patient does meet SIRS criteria, initiation of the sepsis bundle not indicated. (7) Elevated brain natriuretic peptide (BNP) level Is this a current diagnosis for this admission?: Yes Plan: Repeat BNP (8) Nonproductive cough Is this a current diagnosis for this admission?: Yes (9) Atypical chest pain Is this a current diagnosis for this admission?: Yes (10) Abnormal chest xray Is this a current diagnosis for this admission?: Yes (11) Hypokalemia Is this a current diagnosis for this admission?: Yes Critical Time Critical Time (minutes): 60 Level of Care: ICU -: 1. The care of a critical patient is a dynamic process. This note is a account representative synopsis but static in nature. The timeframe for treatments given in order is not necessarily the actual time these treatments may have been done. 2. This patient requires critical care secondary to ongoing requirements for therapy not offered or safe outside the critical care environment. Transfer to a lower level of care will result in altered life or limb morbidity and mortality. 3. Multidisciplinary rounds completed. 4. ABCDE bundle addressed.
[2019-06-22 18:31] LABS: ARTERIAL BLOOD BASE EXCESS -4.6 mmol/L; ARTERIAL BLOOD H2CO3 1.31 mmol/L (1.05-1.35); ARTERIAL BLOOD HCO3 21.4 mmol/L (20-24); ARTERIAL BLOOD O2 SATURATION 96.9 % (94-98); ARTERIAL BLOOD PCO2 43.5 mmHg (35-45); ARTERIAL BLOOD PH 7.31 (7.35-7.45); ARTERIAL BLOOD PO2 98.9 mmHg (80-100); ARTERIAL BLOOD TOTAL CO2 22.7 mmol/L (21-25)
[2019-06-22 18:32] LABS: ARTERIAL BLOOD FIO2 100%
[2019-06-22] MEDS: GUAIFENESIN 600 MG TABLET.SA PO SCH (19:11)
[2019-06-22] MEDS: FAMOTIDINE INJ/PF 20 MG/2 ML SDV IV SCH (19:12)
[2019-06-23] MEDS: DEXTROSE 5%-WATER 250 ML with PHENYLEPHRINE HCL 40 MG IV PRN ×2 (00:11)
[2019-06-23] MEDS: IPRATROPIUM/ALBUTEROL 0.5-2.5 MG/3 ML AMPUL NEB SCH ×7 (00:31→23:41)
[2019-06-23] MEDS: PROPOFOL 1,000 MG/100 ML INFUS..BTL IV PRN ×3 (01:00→16:50)
[2019-06-23] MEDS: FENTANYL CITRATE/PF 600 MCG/60 ML BAG IV PRN ×6 (02:01→21:48)
[2019-06-23] MEDS: METHYLPREDNISOLONE INJ 40 MG/1 ML SDV IV SCH (05:11)
[2019-06-23] MEDS: INSULIN REG, HUMAN 100 UNIT/ML 3 ML VIAL (PYX) SUBCUT SCH ×3 (05:18→17:15)
[2019-06-23 05:39] LABS: HEMATOCRIT 26.3 % (36.0-47.0); HEMOGLOBIN 8.3 g/dL (12.0-15.5); MEAN CORPUSCULAR HEMOGLOBIN 25.2 pg (27.0-33.4); MEAN CORPUSCULAR HGB CONC 31.6 g/dL (32.0-36.0); MEAN CORPUSCULAR VOLUME 80 fl (80-97); PLATELET COUNT 150 10^3/uL (150-450); RED CELL DISTRIBUTION WIDTH 25.6 % (11.5-14.0); WHITE BLOOD COUNT 19.6 10^3/uL (4.0-10.5)
[2019-06-23 06:07] LABS: ANION GAP 17 (5-19); BLOOD UREA NITROGEN 97 mg/dL (7-20); CARBON DIOXIDE 19 mmol/L (22-30); CHLORIDE 98 mmol/L (98-107); GLUCOSE 140 mg/dL (75-110); POTASSIUM 5.2 mmol/L (3.6-5.0)
[2019-06-23 07:37] LABS: HEPATITIS C VIRUS AB <0.1 s/co ratio (0.0-0.9); HEPATITS B SURFACE ANTIGEN Negative (Negative)
[2019-06-23] MEDS: GUAIFENESIN SYRP 200 MG/10 ML UDC NG SCH ×2 (09:10→21:29)
[2019-06-23] MEDS: ENOXAPARIN SODIUM INJ 30 MG/0.3 ML DISP.SYRIN SUBCUT SCH (09:11)
[2019-06-23] MEDS: PANTOPRAZOLE SODIUM 40 MG PACKET.DR NG SCH (09:11)
[2019-06-23] MEDS: AZITHROMYCIN 500 MG in DEXTROSE 5%-WATER 250 ML IV SCH (09:11)
[2019-06-23] MEDS: DOCUSATE SODIUM 100 MG/10 ML UDC NG SCH (09:11)
[2019-06-23 09:39] LABS: ARTERIAL BLOOD BASE EXCESS -8.4 mmol/L; ARTERIAL BLOOD H2CO3 1.32 mmol/L (1.05-1.35); ARTERIAL BLOOD HCO3 18.4 mmol/L (20-24); ARTERIAL BLOOD O2 SATURATION 93.9 % (94-98); ARTERIAL BLOOD PCO2 43.9 mmHg (35-45); ARTERIAL BLOOD PH 7.24 (7.35-7.45); ARTERIAL BLOOD PO2 80.7 mmHg (80-100); ARTERIAL BLOOD TOTAL CO2 19.7 mmol/L (21-25)
[2019-06-23 09:41] LABS: ARTERIAL BLOOD FIO2 80%
[2019-06-23] MEDS ORDERED: LORAZEPAM INJ 2 MG/1 ML VIAL IV PRN (10:22)
[2019-06-23] MEDS: CEFEPIME 1 GM/D5W RTU 1 GM/50 ML RTUPB IV SCH (12:31)
[2019-06-23] MEDS: METHADONE HCL 10 MG TABLET NG SCH (12:36)
[2019-06-23 13:51] LABS: HEPATITIS C VIRUS ANTIBODY <0.1 s/co ratio (0.0-0.9)
--- NOTE | 2019-06-23 14:57 | RADIOLOGY REPORT (SQ) ---
EXAM DESCRIPTION: CHEST SINGLE VIEW COMPLETED DATE/TIME: 06/23/2019 2:43 pm REASON FOR STUDY: pneumonia COMPARISON: 06/21/2019. EXAM PARAMETERS: NUMBER OF VIEWS: One view. TECHNIQUE: Single frontal radiographic view of the chest acquired. RADIATION DOSE: NA LIMITATIONS: None. FINDINGS: LUNGS AND PLEURA: Diffuse bilateral airspace disease. MEDIASTINUM AND HILAR STRUCTURES: No masses. Contour normal. HEART AND VASCULAR STRUCTURES: Heart normal in size. Normal vasculature. BONES: No acute findings. HARDWARE: Endotracheal tube, nasogastric tube, and central line. OTHER: Subcutaneous emphysema. IMPRESSION: NO SIGNIFICANT CHANGE IN APPEARANCE OF THE CHEST. TECHNICAL DOCUMENTATION: JOB ID: [id number] 2010 [employer]- All Rights Reserved Reading location - IP/workstation name: [email or web address]
[2019-06-23] MEDS ORDERED: NORMAL SALINE INJ/PF 0.9% 10 ML SDV IV PRN (15:02)
[2019-06-23] MEDS ORDERED: HEPARIN SODIUM,PORCINE/D5W 25,000 UNIT/250 ML RTUINJ IV PRN (15:07)
[2019-06-23] MEDS ORDERED: HEPARIN SOD (PORCINE) 1,000 UNIT/ML 10 ML VIAL IV ONE (15:07)
--- NOTE | 2019-06-23 15:37 | PDOC CRITICAL CARE PROG REPORT ---
General Date:: 06/23/19 Resuscitation Status: Full Code Events in the past 12 to 24 Hours:: 48-year-old white female who was admitted with ARDS presumably on the basis of pneumonia but then quickly developed renal failure. He has been dialyzed once and is now making some urine but her respiratory status remains unstable. He is tugging on pressure control set at a fairly low pressure with 14 of PEEP and a respiratory rate set at 24. I have adjusted the pressure control to a rate of 25 with a pressure control of 3 PEEP of 12 and a one-to-one I/E ratio. She appears to be more comfortable and a blood gas will be obtained after FiO2 is weaned down to 70%. Reason for ICU Addmission:: Acute hypoxemic respiratory failure Physical Exam Vital Signs: Temp Pulse Resp BP Pulse Ox 99.0 F 112 H 27 H 109/58 L 95 06/23/19 14:00 06/23/19 14:00 06/23/19 14:00 06/23/19 14:00 06/23/19 14:00 Pulse Oximeter Continuous Start: 06/16/19 13:03 Freq: RTQ4 Status: Complete Protocol: Document 06/17/19 10:50 LDA (Rec: 06/17/19 10:56 LDA [email or web address]) Pulse Oximetry Assessment Oxygen Saturation (92-100) 90 Oxygen Delivery Method CPAP Fraction of Inspired Oxygen (FIO2) 85 Equipment Usage Equipment in Use Continuous SpO2 Machine # n-3 Intake & Output 06/22/19 06/23/19 06/24/19 06:59 06:59 06:59 Intake Total 762 1332 100 Output Total 79 1225 0 Balance 683 107 100 Weight 113.1 kg 120.2 kg 230.2 kg Weight/Height Weight 230.2 kg Height 5 ft 1 in General appearance: PRESENT: morbidly obese Head exam: PRESENT: normocephalic Eye exam: PRESENT: PERRLA Mouth exam: PRESENT: tongue midline Teeth exam: PRESENT: other - Orally intubated Neck exam: ABSENT: lymphadenopathy Respiratory exam: PRESENT: rhonchi Cardiovascular exam: PRESENT: RRR Pulses: PRESENT: normal radial pulses GI/Abdominal exam: PRESENT: soft. ABSENT: tenderness Extremities exam: PRESENT: +1 edema Neurological exam: PRESENT: other - Sedated on ventilator Skin exam: ABSENT: rash Laboratory/Radiographs Laboratory Results: 06/23/19 05:22 06/23/19 05:22 06/22/19 06/23/19 06/23/19 18:05 05:22 05:22 WBC 19.6 H RBC 3.30 L Hgb 8.3 L Hct 26.3 L MCV 80 MCH 25.2 L MCHC 31.6 L RDW 25.6 H Plt Count 150 Carbonic Acid 1.31 HCO3/H2CO3 Ratio 16:1 ABG pH 7.31 L ABG pCO2 43.5 ABG pO2 98.9 ABG HCO3 21.4 ABG O2 Saturation 96.9 ABG Base Excess -4.6 FiO2 100% Sodium 134.0 L Potassium 5.2 H Chloride 98 Carbon Dioxide 19 L Anion Gap 17 BUN 97 H Creatinine 6.14 H Est GFR ( Amer) 9 L Glucose 140 H Calcium 7.0 L* 06/23/19 09:20 WBC RBC Hgb Hct MCV MCH MCHC RDW Plt Count Carbonic Acid 1.32 HCO3/H2CO3 Ratio 13:1 ABG pH 7.24 L ABG pCO2 43.9 ABG pO2 80.7 ABG HCO3 18.4 L ABG O2 Saturation 93.9 L ABG Base Excess -8.4 FiO2 80% Sodium Potassium Chloride Carbon Dioxide Anion Gap BUN Creatinine Est GFR ( Amer) Glucose Calcium 06/14/19 06/17/19 06/18/19 12:03 17:20 17:18 Troponin I 0.013 NT-Pro-B Natriuret Pep 228 H 3340 H 05144 H 06/23/19 05:22 Troponin I NT-Pro-B Natriuret Pep 17096 H Impressions: Chest/Abdomen CTA 06/15/19 00:00 IMPRESSION: 1. Multifocal consolidation and ground-glass opacities, greatest within the bilateral lower lobes suggestive of multifocal pneumonia. No significant effusion. 2. No pulmonary embolus. KUB X-Ray 06/18/19 14:18 IMPRESSION: The tip of the enteric tube projects within the gastric antrum. Chest X-Ray 06/23/19 00:00 IMPRESSION: NO SIGNIFICANT CHANGE IN APPEARANCE OF THE CHEST. Assessment and Plan - Diagnosis (1) Acute hypoxemic respiratory failure Is this a current diagnosis for this admission?: Yes Plan Summary: Presented with acute respiratory failure and what appeared to be pneumonia but now she almost certainly has a component of hydrostatic edema. She has been dialyzed 1 time but may require further dialysis though she is making some urine. Ventilatory status is complicated by the fact that some of this may be persisting non-hydrostatic edema. White count is stable but no specific organism was obtained from her sputum initially. Pressure control ventilation adjusted as discussed Starting enteral nutrition Adjust antibiotics as clinically indicated Try a high dose of Lasix pending further dialysis Critical Time Critical Time (minutes): 45 Level of Care: ICU -: 1. The care of a critical patient is a dynamic process. This note is a inside sales account representative synopsis but static in nature. The timeframe for treatments given in order is not necessarily the actual time these treatments may have been done. 2. This patient requires critical care secondary to ongoing requirements for therapy not offered or safe outside the critical care environment. Transfer to a lower level of care will result in altered life or limb morbidity and mortality. 3. Multidisciplinary rounds completed. 4. ABCDE bundle addressed.
[2019-06-23] MEDS ORDERED: VECURONIUM BROMIDE INJ 10 MG VIAL IV ONE ×2 (15:48→16:45)
[2019-06-23] MEDS ORDERED: FUROSEMIDE INJ/PF 100 MG/10 ML SDV IV ONE (16:30)
[2019-06-23] MEDS ORDERED: NYSTATIN TOPICAL POWDER 15 GM TP PRN (16:36)
[2019-06-23 17:49] LABS: ARTERIAL BLOOD BASE EXCESS -9.4 mmol/L; ARTERIAL BLOOD H2CO3 1.36 mmol/L (1.05-1.35); ARTERIAL BLOOD HCO3 17.8 mmol/L (20-24); ARTERIAL BLOOD O2 SATURATION 94.7 % (94-98); ARTERIAL BLOOD PCO2 45.2 mmHg (35-45); ARTERIAL BLOOD PH 7.21 (7.35-7.45); ARTERIAL BLOOD PO2 86.9 mmHg (80-100); ARTERIAL BLOOD TOTAL CO2 19.2 mmol/L (21-25)
[2019-06-23 17:50] LABS: ARTERIAL BLOOD FIO2 75%
[2019-06-23] MEDS ORDERED: HEPARIN SOD (PORCINE) 1,000 UNIT/ML 10 ML VIAL IV PRN (18:08)
[2019-06-23] MEDS ORDERED: METOCLOPRAMIDE HCL INJ/PF 10 MG/2 ML SDV IV ONE (20:00)
--- NOTE | 2019-06-23 21:04 | RADIOLOGY REPORT (SQ) ---
EXAM DESCRIPTION: XR CHEST 1 VIEW COMPLETED DATE/TME: 06/23/2019 00:00 CLINICAL HISTORY: 48 years, Female, OG tube adjustment COMPARISON: Chest x-ray from today at 2:35 PM. FINDINGS: AP view of the lower chest and upper abdomen. Enteric tube located in the fundus of the stomach not significantly changed since earlier chest x-ray from today.
[2019-06-24] MEDS: INSULIN REG, HUMAN 100 UNIT/ML 3 ML VIAL (PYX) SUBCUT SCH ×4 (00:04→19:07)
[2019-06-24] MEDS: PROPOFOL 1,000 MG/100 ML INFUS..BTL IV PRN ×5 (00:09→19:38)
[2019-06-24] MEDS: METOCLOPRAMIDE HCL INJ/PF 10 MG/2 ML SDV IV SCH ×4 (00:13→18:09)
[2019-06-24] MEDS: FENTANYL CITRATE/PF 600 MCG/60 ML BAG IV PRN ×5 (01:37→21:08)
[2019-06-24] MEDS: IPRATROPIUM/ALBUTEROL 0.5-2.5 MG/3 ML AMPUL NEB SCH ×5 (04:04→19:37)
[2019-06-24] MEDS: METHYLPREDNISOLONE INJ 40 MG/1 ML SDV IV SCH (05:19)
[2019-06-24 06:37] LABS: ARTERIAL BLOOD BASE EXCESS -10.3 mmol/L; ARTERIAL BLOOD H2CO3 0.82 mmol/L (1.05-1.35); ARTERIAL BLOOD HCO3 14.3 mmol/L (20-24); ARTERIAL BLOOD O2 SATURATION 86.8 % (94-98); ARTERIAL BLOOD PCO2 27.2 mmHg (35-45); ARTERIAL BLOOD PH 7.34 (7.35-7.45); ARTERIAL BLOOD PO2 53.9 mmHg (80-100); ARTERIAL BLOOD TOTAL CO2 15.1 mmol/L (21-25)
[2019-06-24 06:38] LABS: ARTERIAL BLOOD FIO2 60%
[2019-06-24] MEDS: PANTOPRAZOLE SODIUM 40 MG PACKET.DR NG SCH (11:05)
[2019-06-24] MEDS: METHADONE HCL 10 MG TABLET NG SCH (11:06)
[2019-06-24] MEDS: GUAIFENESIN SYRP 200 MG/10 ML UDC NG SCH ×2 (11:06→21:09)
[2019-06-24] MEDS: DOCUSATE SODIUM 100 MG/10 ML UDC NG SCH (11:07)
[2019-06-24] MEDS: CEFEPIME 1 GM/D5W RTU 1 GM/50 ML RTUPB IV SCH (11:08)
[2019-06-24] MEDS: AZITHROMYCIN 500 MG in DEXTROSE 5%-WATER 250 ML IV SCH (11:23)
[2019-06-24] MEDS ORDERED: NORMAL SALINE 250 ML with FUROSEMIDE 250 MG IV PRN ×4 (12:03→14:56)
--- NOTE | 2019-06-24 13:32 | RADIOLOGY REPORT (SQ) ---
EXAM DESCRIPTION: CHEST SINGLE VIEW COMPLETED DATE/TIME: 06/24/2019 1:21 pm REASON FOR STUDY: ards COMPARISON: 06/23/2019. EXAM PARAMETERS: NUMBER OF VIEWS: One view. TECHNIQUE: Single frontal radiographic view of the chest acquired. RADIATION DOSE: NA LIMITATIONS: None. FINDINGS: LUNGS AND PLEURA: Hazy airspace disease unchanged. MEDIASTINUM AND HILAR STRUCTURES: No masses. Contour normal. HEART AND VASCULAR STRUCTURES: Heart normal in size. Normal vasculature. BONES: No acute findings. HARDWARE: Stable endotracheal tube, nasogastric tube, and central line. OTHER: Diffuse subcutaneous emphysema. IMPRESSION: NO SIGNIFICANT CHANGE IN APPEARANCE OF THE CHEST. TECHNICAL DOCUMENTATION: JOB ID: [id number] 2010 [email or web address]- All Rights Reserved Reading location - IP/workstation name: [email or web address]
[2019-06-24] MEDS ORDERED: FUROSEMIDE INJ/PF 100 MG/10 ML SDV ONE (15:01)
--- NOTE | 2019-06-24 15:13 | PDOC CRITICAL CARE PROG REPORT ---
General Date:: 06/24/19 Resuscitation Status: Full Code Events in the past 12 to 24 Hours:: 48-year-old white female who comes in with pneumonia; unfortunately has progressed to renal failure also. She was dialyzed once but now appears to be grossly fluid overloaded on top of any pneumonia/ARDS. She still has some urinary but and we will try aggressive diuretic therapy, but suspect her respiratory status will not improve until she is dialyzed. Her gas exchange has proved on pressure control ventilation, but she has developed subcu emphysema which she had previously. Reason for ICU Addmission:: Acute hypoxemic respiratory failure Physical Exam Vital Signs: Temp Pulse Resp BP Pulse Ox 98.0 F 110 H 30 H 96/64 L 92 06/24/19 12:00 06/24/19 12:35 06/24/19 14:08 06/24/19 14:08 06/24/19 14:08 Pulse Oximeter Continuous Start: 06/16/19 13:03 Freq: RTQ4 Status: Complete Protocol: Document 06/17/19 10:50 LDA (Rec: 06/17/19 10:56 LDA [id number]) Pulse Oximetry Assessment Oxygen Saturation (92-100) 90 Oxygen Delivery Method CPAP Fraction of Inspired Oxygen (FIO2) 85 Equipment Usage Equipment in Use Continuous SpO2 Machine # n-3 Intake & Output 06/23/19 06/24/19 06/25/19 06:59 06:59 06:59 Intake Total 1332 694 425 Output Total 1225 5 7 Balance 107 689 418 Weight 120.2 kg 118.4 kg Weight/Height Weight 118.4 kg Height 5 ft 1 in General appearance: PRESENT: morbidly obese Head exam: PRESENT: normocephalic Eye exam: PRESENT: periorbital swelling Mouth exam: PRESENT: neck supple Neck exam: PRESENT: JVD. ABSENT: tracheal deviation Respiratory exam: PRESENT: rales, tachypnea Cardiovascular exam: PRESENT: RRR Pulses: PRESENT: normal radial pulses, +1 pedal pulses bilateral GI/Abdominal exam: PRESENT: soft. ABSENT: tenderness Laboratory/Radiographs Laboratory Results: 06/23/19 05:22 06/23/19 05:22 06/23/19 06/24/19 17:34 05:53 Carbonic Acid 1.36 H 0.82 L HCO3/H2CO3 Ratio 13:1 17:1 ABG pH 7.21 L 7.34 L ABG pCO2 45.2 H 27.2 L ABG pO2 86.9 53.9 L ABG HCO3 17.8 L 14.3 L ABG O2 Saturation 94.7 86.8 L ABG Base Excess -9.4 -10.3 FiO2 75% 60% 06/19/19 03:49 Blood Blood Culture - Final NO GROWTH IN 5 DAYS 06/19/19 02:34 Blood Blood Culture - Final NO GROWTH IN 5 DAYS 06/14/19 06/17/19 06/18/19 12:03 17:20 17:18 Troponin I 0.013 NT-Pro-B Natriuret Pep 228 H 3340 H 74220 H 06/23/19 05:22 Troponin I NT-Pro-B Natriuret Pep 66229 H Impressions: Chest/Abdomen CTA 06/15/19 00:00 IMPRESSION: 1. Multifocal consolidation and ground-glass opacities, greatest within the bilateral lower lobes suggestive of multifocal pneumonia. No significant effusion. 2. No pulmonary embolus. KUB X-Ray 06/18/19 14:18 IMPRESSION: The tip of the enteric tube projects within the gastric antrum. Chest X-Ray 06/24/19 12:03 IMPRESSION: NO SIGNIFICANT CHANGE IN APPEARANCE OF THE CHEST. Assessment and Plan - Diagnosis (1) Acute hypoxemic respiratory failure Is this a current diagnosis for this admission?: Yes (2) Acute kidney injury Is this a current diagnosis for this admission?: Yes Plan Summary: Presented with acute hypoxic respiratory failure presumably on the basis of pneumonia She has developed renal failure with minimal urine output at this point but domingo s fluid overloa Continue pressure control ventilation Lasix 100 mg IV followed by a drip at 50 mg an hour Hopefully will be dialyzed first thing in the morning if not responding to diuretics Lab and chest x-ray again in the morning Critical Time Critical Time (minutes): 55 Level of Care: ICU -: 1. The care of a critical patient is a dynamic process. This note is a union representative synopsis but static in nature. The timeframe for treatments given in order is not necessarily the actual time these treatments may have been done. 2. This patient requires critical care secondary to ongoing requirements for therapy not offered or safe outside the critical care environment. Transfer to a lower level of care will result in altered life or limb morbidity and mortality. 3. Multidisciplinary rounds completed. 4. ABCDE bundle addressed.
[2019-06-24] MEDS ORDERED: FUROSEMIDE INJ/PF 100 MG/10 ML SDV IV ONE (15:30)
[2019-06-24] MEDS: ALBUMIN HUMAN 12.5 GM/50 ML RTUINJ IV SCH ×2 (20:15→20:45)
[2019-06-25] MEDS: IPRATROPIUM/ALBUTEROL 0.5-2.5 MG/3 ML AMPUL NEB SCH ×4 (00:30→11:46)
[2019-06-25] MEDS: METOCLOPRAMIDE HCL INJ/PF 10 MG/2 ML SDV IV SCH ×3 (02:33→11:58)
[2019-06-25] MEDS: FENTANYL CITRATE/PF 600 MCG/60 ML BAG IV PRN ×2 (03:52→09:35)
[2019-06-25] MEDS: PROPOFOL 1,000 MG/100 ML INFUS..BTL IV PRN ×3 (03:52→14:36)
[2019-06-25 04:33] LABS: ARTERIAL BLOOD BASE EXCESS -12.5 mmol/L; ARTERIAL BLOOD HCO3 14.3 mmol/L (20-24); ARTERIAL BLOOD O2 SATURATION 84.1 % (94-98); ARTERIAL BLOOD PCO2 36.4 mmHg (35-45); ARTERIAL BLOOD PH 7.21 (7.35-7.45); ARTERIAL BLOOD PO2 57.2 mmHg (80-100); ARTERIAL BLOOD TOTAL CO2 15.4 mmol/L (21-25)
[2019-06-25 04:34] LABS: HEMATOCRIT 21.9 % (36.0-47.0); MEAN CORPUSCULAR HEMOGLOBIN 25.5 pg (27.0-33.4); MEAN CORPUSCULAR HGB CONC 32.3 g/dL (32.0-36.0); MEAN CORPUSCULAR VOLUME 79 fl (80-97); PLATELET COUNT 144 10^3/uL (150-450); RED BLOOD COUNT 2.77 10^6/uL (3.72-5.28); RED CELL DISTRIBUTION WIDTH 26.2 % (11.5-14.0); WHITE BLOOD COUNT 24.4 10^3/uL (4.0-10.5)
[2019-06-25 04:39] LABS: HEMOGLOBIN 7.1 g/dL (12.0-15.5)
[2019-06-25 04:49] LABS: ARTERIAL BLOOD FIO2 65%
[2019-06-25 04:53] LABS: ALBUMIN 2.7 g/dL (3.5-5.0); ALKALINE PHOSPHATASE 101 U/L (38-126); ASPARTATE AMINO TRANSFERASE 51 U/L (14-36); GLUCOSE 73 mg/dL (75-110); TOTAL PROTEIN 5.7 g/dL (6.3-8.2)
[2019-06-25 04:59] LABS: CARBON DIOXIDE 13 mmol/L (22-30); CHLORIDE 93 mmol/L (98-107)
[2019-06-25] MEDS ORDERED: HEPARIN SOD (PORCINE) 1,000 UNIT/ML 10 ML VIAL IV PRN (05:00)
[2019-06-25] MEDS ORDERED: NORMAL SALINE 1000 ML 1,000 ML IV PRN (05:00)
[2019-06-25 05:06] LABS: BLOOD UREA NITROGEN 144 mg/dL (7-20)
[2019-06-25 05:07] LABS: CALCIUM 6.8 mg/dL (8.4-10.2); POTASSIUM 6.2 mmol/L (3.6-5.0)
[2019-06-25] MEDS: METHYLPREDNISOLONE INJ 40 MG/1 ML SDV IV SCH (05:17)
[2019-06-25 05:25] LABS: ANION GAP 26 (5-19)
[2019-06-25] MEDS ORDERED: CALCIUM GLUCONATE 1 GM/NS 50 ML RTU IV ONE (08:00)
[2019-06-25] MEDS: INSULIN REG, HUMAN 100 UNIT/ML 3 ML VIAL (PYX) SUBCUT SCH ×3 (08:28→11:58)
[2019-06-25 09:24] LABS: HEPATITS B SURFACE ANTIGEN Negative (Negative)
[2019-06-25] MEDS: CEFEPIME 1 GM/D5W RTU 1 GM/50 ML RTUPB IV SCH (09:40)
[2019-06-25] MEDS: PANTOPRAZOLE SODIUM 40 MG PACKET.DR NG SCH (09:41)
[2019-06-25] MEDS: METHADONE HCL 10 MG TABLET NG SCH (09:41)
[2019-06-25] MEDS: DOCUSATE SODIUM 100 MG/10 ML UDC NG SCH (09:41)
[2019-06-25] MEDS: GUAIFENESIN SYRP 200 MG/10 ML UDC NG SCH (09:41)
[2019-06-25] MEDS ORDERED: DEXTROSE 5%-WATER 1000 ML 1,000 ML with SODIUM BICARBONATE 150 MEQ IV PRN ×2 (10:44)
--- NOTE | 2019-06-25 10:54 | PDOC CRITICAL CARE PROG REPORT ---
General Date:: 06/25/19 Resuscitation Status: Full Code Events in the past 12 to 24 Hours:: 48-year-old white female who presented with pneumonia and sepsis. She has progressed to oliguric renal failure with a significant metabolic acidosis. He became very hard to ventilate and oxygenate due to a combination of underlying ARDS, volume overload and the acidosis. Fortunately, she was able to be dialyzed this morning with 1.6 L of fluid removed and her compliance has improved dramatically. He is now been changed back to volume ventilation. Her oxygenation is improving and her PEEP should be able to be weaned. He has developed barotrauma due to the difficulty in ventilating her but this should also improve with removal of volume. The acidosis still appears to be a an issue as she is requiring a high minute ventilation, but pulmonary compliance is improved. Reason for ICU Addmission:: Acute hypoxemic respiratory failure Physical Exam Vital Signs: Temp Pulse Resp BP Pulse Ox 98.7 F 109 H 33 H 109/54 L 90 L 06/25/19 08:00 06/25/19 08:16 06/25/19 08:16 06/25/19 08:00 06/25/19 08:16 Pulse Oximeter Continuous Start: 06/16/19 13:03 Freq: RTQ4 Status: Complete Protocol: Document 06/17/19 10:50 LDA (Rec: 06/17/19 10:56 LDA [id number]) Pulse Oximetry Assessment Oxygen Saturation (92-100) 90 Oxygen Delivery Method CPAP Fraction of Inspired Oxygen (FIO2) 85 Equipment Usage Equipment in Use Continuous SpO2 Machine # n-3 Intake & Output 06/24/19 06/25/19 06/26/19 06:59 06:59 06:59 Intake Total 694 711 800 Output Total 5 072 2300 Balance 283 -79 -7854 Weight 118.4 kg 116.8 kg Weight/Height Weight 116.8 kg Height 5 ft 1 in General appearance: ABSENT: morbidly obese Eye exam: PRESENT: periorbital swelling Mouth exam: PRESENT: neck supple Neck exam: PRESENT: JVD. ABSENT: lymphadenopathy Respiratory exam: PRESENT: rales, tachypnea Cardiovascular exam: PRESENT: RRR Pulses: PRESENT: normal radial pulses GI/Abdominal exam: PRESENT: soft. ABSENT: tenderness Extremities exam: PRESENT: +2 edema Neurological exam: PRESENT: other - Sedated on vent Skin exam: PRESENT: other - Subcu emphysema Laboratory/Radiographs Laboratory Results: 06/25/19 04:15 06/25/19 04:15 06/25/19 06/25/19 06/25/19 04:15 04:15 04:23 WBC 24.4 H RBC 2.77 L Hgb 7.1 L Hct 21.9 L MCV 79 L MCH 25.5 L MCHC 32.3 RDW 26.2 H Plt Count 144 L Carbonic Acid 1.10 HCO3/H2CO3 Ratio 13:1 ABG pH 7.21 L ABG pCO2 36.4 ABG pO2 57.2 L ABG HCO3 14.3 L ABG O2 Saturation 84.1 L ABG Base Excess -12.5 FiO2 65% Sodium 131.6 L Potassium 6.2 H* Chloride 93 L Carbon Dioxide 13 L Anion Gap 26 H BUN 144 H Creatinine 7.34 H Est GFR ( Amer) 7 L Glucose 73 L Calcium 6.8 L* Total Bilirubin 1.0 AST 51 H Alkaline Phosphatase 101 Total Protein 5.7 L Albumin 2.7 L 06/14/19 06/17/19 06/18/19 12:03 17:20 17:18 Troponin I 0.013 NT-Pro-B Natriuret Pep 228 H 3340 H 16293 H 06/23/19 05:22 Troponin I NT-Pro-B Natriuret Pep 22874 H Impressions: Chest/Abdomen CTA 06/15/19 00:00 IMPRESSION: 1. Multifocal consolidation and ground-glass opacities, greatest within the bilateral lower lobes suggestive of multifocal pneumonia. No significant effusion. 2. No pulmonary embolus. KUB X-Ray 06/18/19 14:18 IMPRESSION: The tip of the enteric tube projects within the gastric antrum. Chest X-Ray 06/24/19 12:03 IMPRESSION: NO SIGNIFICANT CHANGE IN APPEARANCE OF THE CHEST. Assessment and Plan - Diagnosis (1) Acute hypoxemic respiratory failure Is this a current diagnosis for this admission?: Yes (2) Acute kidney injury Is this a current diagnosis for this admission?: Yes Plan Summary: Acute respiratory failure secondary to pneumonia Acute renal failure secondary to sepsis Metabolic acidosis due to renal failure Volume overload due to renal failure Case discussed with nephrology We agreed that CRRT would be a better option for her I will speak with the about transferring her to [facility] A bicarb drip has been initiated in the meantime Critical Time Critical Time (minutes): 50 Level of Care: ICU -: 1. The care of a critical patient is a dynamic process. This note is a veterans contact representative synopsis but static in nature. The timeframe for treatments given in order is not necessarily the actual time these treatments may have been done. 2. This patient requires critical care secondary to ongoing requirements for therapy not offered or safe outside the critical care environment. Transfer to a lower level of care will result in altered life or limb morbidity and mortality. 3. Multidisciplinary rounds completed. 4. ABCDE bundle addressed.
--- NOTE | 2019-06-25 12:46 | RADIOLOGY REPORT (SQ) ---
EXAM DESCRIPTION: CHEST SINGLE VIEW COMPLETED DATE/TIME: 06/25/2019 11:47 am REASON FOR STUDY: resp failure COMPARISON: 06/24/2019 EXAM PARAMETERS: NUMBER OF VIEWS: One view. TECHNIQUE: Single frontal radiographic view of the chest acquired. RADIATION DOSE: NA LIMITATIONS: None. FINDINGS: LUNGS AND PLEURA: Airspace disease bilaterally that appears relatively stable. MEDIASTINUM AND HILAR STRUCTURES: No masses. Contour normal. HEART AND VASCULAR STRUCTURES: Heart normal in size. Normal vasculature. BONES: No acute findings. HARDWARE: Endotracheal tube has its tip 4 cm above the miriam. NG tube extends to the stomach. Left internal jugular catheter remains in place. OTHER: Extensive subcutaneous emphysema remains. IMPRESSION: No significant interval change. Bilateral airspace disease. Subcutaneous emphysema. TECHNICAL DOCUMENTATION: JOB ID: [id number] 2010 [employer]- All Rights Reserved Reading location - IP/workstation name: [email or web address]
--- NOTE | 2019-06-25 14:00 | PDOC PROGRESS REPORT ---
Subjective Progress Note for:: 06/25/19 Reason For Visit: This patient was seen in the ICU today. She is currently undergoing dialysis. Patient chart was reviewed and discussions were done with the treating nurse as well as with director funds development. She was admitted on the with a history suggestive of respiratory tract infection in a patient who is a smoker as well as using methadone for chronic pain. Otherwise unremarkable past medical history with no previous history of CKD. Admitting creatinine was 0.6. She was found to be hypoxic and needed to be on CPAP. She had a CTA scan done on the which showed multilobar lobar consolidation. On the she began to have altered mental status with worsening hypoxia and soon she was transferred to the ICU and intubated. Her white count has remained high but then she was also put on high-dose of Solu-Medrol currently on 60 mg daily. For the last few days her temperatures have remained over 100. Her vent settings shows that she is on a high PEEP setting of 14. She also had developed a traumatic subcutaneous emphysema. Chest x-ray shows extensive bilateral interstitial markings which are unchanged over the last few chest xrays. She had a chest x- ray done this morning postdialysis which remains unchanged after removal of 1.6 L of fluid cautiously on hemodialysis. Creatinine began to rise as of the the and a reached around 7 + along with the becoming oligo anuric/anuric. She was initiated on hemodialysis cautiously on Tuesday by my partner Dr. Larson and was cautiously removed of about 1.5 L of fluid with blood pressure being rather hypotensive and she being on pressors. She continues to be anuric at the moment.Labs and medications were reviewed. Dialysis orders were reviewed with the treating dialysis nurse. Physical Exam Vital Signs: Temp Pulse Resp BP Pulse Ox 100.4 F 122 H 33 H 104/67 95 06/25/19 12:00 06/25/19 12:00 06/25/19 12:42 06/25/19 12:42 06/25/19 12:42 Pulse Oximeter Continuous Start: 06/16/19 13:03 Freq: RTQ4 Status: Complete Protocol: Document 06/17/19 10:50 LDA (Rec: 06/17/19 10:56 LDA [id number]) Pulse Oximetry Assessment Oxygen Saturation (92-100) 90 Oxygen Delivery Method CPAP Fraction of Inspired Oxygen (FIO2) 85 Equipment Usage Equipment in Use Continuous SpO2 Machine # n-3 Intake & Output 06/24/19 06/25/19 06/26/19 06:59 06:59 06:59 Intake Total 694 711 800 Output Total 5 772 2300 Balance 689 61 -1500 Weight 118.4 kg 116.8 kg Exam: Intubated and sedated. Respiratory exam: PRESENT: decreased breath sounds Cardiovascular exam: PRESENT: +S1, +S2 GI/Abdominal exam: PRESENT: normal bowel sounds, soft. ABSENT: organomegaly, tenderness Extremities exam: PRESENT: pedal edema Neurological exam: PRESENT: altered - Intubated and sedated. Skin exam: ABSENT: cyanosis, mottled Results Laboratory Results: 06/25/19 04:15 06/25/19 04:15 06/25/19 06/25/19 06/25/19 04:15 04:15 04:23 WBC 24.4 H RBC 2.77 L Hgb 7.1 L Hct 21.9 L MCV 79 L MCH 25.5 L MCHC 32.3 RDW 26.2 H Plt Count 144 L Carbonic Acid 1.10 HCO3/H2CO3 Ratio 13:1 ABG pH 7.21 L ABG pCO2 36.4 ABG pO2 57.2 L ABG HCO3 14.3 L ABG O2 Saturation 84.1 L ABG Base Excess -12.5 FiO2 65% Sodium 131.6 L Potassium 6.2 H* Chloride 93 L Carbon Dioxide 13 L Anion Gap 26 H BUN 144 H Creatinine 7.34 H Est GFR ( Amer) 7 L Glucose 73 L Calcium 6.8 L* Total Bilirubin 1.0 AST 51 H Alkaline Phosphatase 101 Total Protein 5.7 L Albumin 2.7 L 06/23/19 17:34 Sputum Gram Stain - Final 06/23/19 17:34 Sputum Sputum Culture - Final Yeast, Not Tootie Albicans Greatly Reduced Normal Tea 06/14/19 06/17/19 06/18/19 12:03 17:20 17:18 Troponin I 0.013 NT-Pro-B Natriuret Pep 228 H 3340 H 38552 H 06/23/19 05:22 Troponin I NT-Pro-B Natriuret Pep 09724 H Impressions: Chest/Abdomen CTA 06/15/19 00:00 IMPRESSION: 1. Multifocal consolidation and ground-glass opacities, greatest within the bilateral lower lobes suggestive of multifocal pneumonia. No significant effusion. 2. No pulmonary embolus. KUB X-Ray 06/18/19 14:18 IMPRESSION: The tip of the enteric tube projects within the gastric antrum. Chest X-Ray 06/25/19 11:00 IMPRESSION: No significant interval change. Bilateral airspace disease. Subcutaneous emphysema. Assessment & Plan - Diagnosis (1) Acute hypoxemic respiratory failure Is this a current diagnosis for this admission?: Yes Plan: She has got bilateral extensive airspace disease along with chronic interstitial markings suggestive of of infectious process with possible superadded ARDS. Differentials of infection besides bacterial could also include viral/fungal. Is also possible that she could have certain element of underlying congestive heart failure. Patient is in critical respiratory failure with high vent PEEP settings of 14. Unfortunately she is also had subcutaneous emphysema which is not being helped with a high PEEP. Discussions were done with director funds development who opined that the patient has a combination of ARDS/heart failure and he asked if we could extract any fluid on dialysis. Unfortunately patient became hypotensive and the maximum we could do to remove fluid with help of pressors was only 1.6 L. Repeat chest x-ray postdialysis showed no changes in my opinion on the extensive interstitial findings from her previous x-ray done a few days ago. Obviously this patient might benefit from Stanley-Vianca and help with determination whether she needs fluid or whether she needs fluid removal. If she obviously needs fluid removal especially because she is in anuric renal failure she needs to be on CRRT which is not available in this hospital.Patient is quite critical. (2) Acute kidney injury Is this a current diagnosis for this admission?: Yes Plan: Patient is got acute anuric renal failure in the setting of bilateral infectious process in the lungs. She also had a contrasted CTA done 3 days before her creatinine began to progressively rise from 0.6 on admission to a peak of 7+ as of the when she was initiated on hemodialysis. She also has an associated severe metabolic acidosis and hyperkalemia which almost narrows the rise in the creatinine. Patient is in septic shock and has been on pressors. She obviously needs to be on CRRT as extraction of fluid and and regulation of her renal parameters is not possible given her current hemodynamic instability. She is in severe respiratory failure with the vent settings showing high PEEP of 14. She is currently undergoing dialysis. Dialysis being supervised to ensure safe and smooth procedure. Blood pressures were tenuous but we were able to extract 1.6 L of fluid. She had a repeat chest x-ray done post dialysis and does not show any improvement of her extensive interstitial markings in my opinion. Discussions were done with director funds development. Patient is critical (3) Septic shock Plan: Patient has got bilateral pneumonia of unknown etiology. Stool for bacterial cultures of tracheal aspirate is negative but today it grew yeast not Tootie albicans. Patient currently on antibiotics. White count is markedly elevated but could be also secondary to high-dose of steroids that she was initiated on admission which today is at 60 mg of Solu-Medrol daily. She continues to have a temperature of around 100.5 for the last few days. Her platelet count initially on admission was around 250 and is dropped down to around 150 thereabouts and stayed steady. She also had mildly abnormal LFTs Hepatitis and nonobstructive picture, around the time of admission and then it normalized and today shows slightly high AST of 51 with normal ALT/alk phosphatase. Differential diagnosis of septic shock in the setting of bilateral extensive pneumonic/extensive interstitial markings in conjunction with what looks like ARDS may indicate atypical bacterial/viral/fungal infection. (4) Bilateral pneumonia Qualifiers: Pneumonia type: due to unspecified organism Lung location: unspecified part of lung Qualified Code(s): J18.9 - Pneumonia, unspecified organism Is this a current diagnosis for this admission?: Yes Plan: Tracheal aspirate is negative for any bacteria.Patient currently on antibiotics. Chest x-ray shows no remarkable changes in the last few days and persistence of extensive bilateral interstitial markings. (5) Hyperkalemia Is this a current diagnosis for this admission?: Yes Plan: She should respond to current dialysis on a 1K for an hour followed by 2K bath. (6) Metabolic acidosis Is this a current diagnosis for this admission?: Yes Plan: She should respond electively after undergoing current dialysis. Monitor. She could be initiated on a bicarbonate drip. ABG is done today and shows 7.2/30.6/14 Discussed with director funds development (7) Subcutaneous emphysema Qualifiers: Encounter type: initial encounter Qualified Code(s): T79.7XXA - Traumatic subcutaneous emphysema, initial encounter Is this a current diagnosis for this admission?: Yes Plan: Apparently traumatic. As per director funds development. - Time Time with patient: Greater than 35 minutes
--- NOTE | 2019-06-25 14:07 | PDOC DISCHARGE SUMMARY ---
Impression - Admit/DC Date/PCP Admission Date/Primary Care Provider: 06/14/19 13:55 JS ANDERSON PA-C Discharge Date: 06/25/19 - Discharge Diagnosis (1) Acute hypoxemic respiratory failure Is this a current diagnosis for this admission?: Yes (2) Acute kidney injury Is this a current diagnosis for this admission?: Yes - Assessment Summary: 48-year-old obese white female who was actually in fairly good health previously. She has hypertension and was on methadone for chronic pain but otherwise did not have active medical problems. She developed a flu like illness with fever,. muscle aches and upper respiratory tract symptoms. She also had dyspnea which persisted after the fever resolved. Presented to this facility with these complaints and was found to have bilateral infiltrates. Usually she was managed on the floor including noninvasive ventilation. Transferred to the ICU on June 18 and required intubation later that day. She developed progressive renal failure and had a left IJ triple-lumen dialysis catheter placed on the . She was dialyzed once on the . Over the weekend when I assumed her care, she required pressure control ventilation to maintain her oxygenation. She developed subcu emphysema but fortunately no pneumothorax. He also developed fluid overload and acidosis wiring urgent dialysis this morning. He was minimally better after this dialysis and her care was discussed with nephrology. He agreed CRRT was appropriate and she should be transferred in this regard. I then spoke with her who is in complete agreement with this plan. Medical regimen at the time of discharge: No allergies Fentanyl and Diprovan drips for sedation Duo nebs Methadone 90 per NG daily Cefepime 1 g daily (She had been on doxycycline and then received a course of Zithromax) Solu-Medrol 60 IV every 6 Sliding scale regular insulin every 6 Nystatin powder to affected areas Lovenox 30 daily Protonix 40 daily Bicarb drip 150 mEq/L at 50 an hour Vent: Pressure control at 23 with 12 of PEEP 5 to 70 to 75% Rate at 26 with an I-E of 1-1 ABG prior to dialysis this morning; 7.21/36/57 Other lab: PT 13.6 on admission PTT 27.6 on the 15 Count 24.4 today and has been bumping around 20 but is up today H&H 21.9/7.1 Plat 144 Sodium 132 potassium 6.2 bicarb 13 chloride 93 BUN 144 creatinine 7.3 (before dialysis) Albumin 2.7 No flu swab was sent when she was admitted Sputum culture from 2 days ago shows only yeast Cultures from admission were not helpful - Additional Information Resuscitation Status: Full Code Referrals: JS ANDERSON PA-C [Primary Care Provider] - Follow up as needed Home Medications: Methadone HCl [Dolophine 10 mg Tablet] 89 mg PO DAILY 06/14/19 History of Present Illiness History of Present Illness: ULISES HERNANDEZ is a 48 year old female Physical Exam Vital Signs: Temp Pulse Resp BP Pulse Ox 100.4 F 122 H 33 H 104/67 95 06/25/19 12:00 06/25/19 12:00 06/25/19 12:42 06/25/19 12:42 06/25/19 12:42 Pulse Oximeter Continuous Start: 06/16/19 13:03 Freq: RTQ4 Status: Complete Protocol: Document 06/17/19 10:50 LDA (Rec: 06/17/19 10:56 LDA [id number]) Pulse Oximetry Assessment Oxygen Saturation (92-100) 90 Oxygen Delivery Method CPAP Fraction of Inspired Oxygen (FIO2) 85 Equipment Usage Equipment in Use Continuous SpO2 Machine # [id number] Intake & Output 06/24/19 06/25/19 06/26/19 06:59 06:59 06:59 Intake Total 694 711 800 Output Total 5 772 2300 Balance Weight 118.4 kg 116.8 kg Results Laboratory Results: WBC 24.4 10^3/uL (4.0-10.5) H 06/25/19 04:15 RBC 2.77 10^6/uL (3.72-5.28) L 06/25/19 04:15 Hgb 7.1 g/dL (12.0-15.5) L 06/25/19 04:15 Hct 21.9 % (36.0-47.0) L 06/25/19 04:15 MCV 79 fl (80-97) L 06/25/19 04:15 MCH 25.5 pg (27.0-33.4) L 06/25/19 04:15 MCHC 32.3 g/dL (32.0-36.0) 06/25/19 04:15 RDW 26.2 % (11.5-14.0) H 06/25/19 04:15 Plt Count 144 10^3/uL (150-450) L 06/25/19 04:15 Lymph % (Auto) Not Reportable 06/22/19 03:50 Patrick % (Auto) Not Reportable 06/22/19 03:50 Eos % (Auto) Not Reportable 06/22/19 03:50 Baso % (Auto) Not Reportable 06/22/19 03:50 Reticulocyte # 0.051 10^6/uL (0.028-0.122) 06/17/19 06:45 Absolute Neuts (auto) Not Reportable 06/22/19 03:50 Absolute Lymphs (auto) Not Reportable 06/22/19 03:50 Absolute Monos (auto) Not Reportable 06/22/19 03:50 Absolute Eos (auto) Not Reportable 06/22/19 03:50 Absolute Basos (auto) Not Reportable 06/22/19 03:50 Total Counted 100 06/22/19 03:50 Seg Neutrophils % Not Reportable 06/22/19 03:50 Seg Neuts % (Manual) 94 % (42-78) H 06/22/19 03:50 Band Neutrophils % 2 % (3-5) L 06/21/19 00:31 Lymphocytes % (Manual) 5 % (13-45) L 06/22/19 03:50 Monocytes % (Manual) 1 % (3-13) L 06/22/19 03:50 Eosinophils % (Manual) 0 % (0-6) 06/22/19 03:50 Basophils % (Manual) 0 % (0-2) 06/22/19 03:50 Abs Neuts (Manual) 22.7 10^3/uL (1.7-8.2) H 06/22/19 03:50 Abs Lymphs (Manual) 1.2 10^3/uL (0.5-4.7) 06/22/19 03:50 Abs Monocytes (Manual) 0.2 10^3/uL (0.1-1.4) 06/22/19 03:50 Absolute Eos (Manual) 0.0 10^3/uL (0.0-0.6) 06/22/19 03:50 Abs Basophils (Manual) 0.0 10^3/uL (0.0-0.2) 06/22/19 03:50 Nucleated RBCs 1 /100 WBC (0) 06/22/19 03:50 Toxic Granulation SLIGHT 06/22/19 03:50 Platelet Comment DECREASED 06/22/19 03:50 Polychromasia SLIGHT 06/21/19 00:31 Hypochromasia SLIGHT 06/22/19 03:50 Poikilocytosis SLIGHT 06/22/19 03:50 Anisocytosis 3+ 06/22/19 03:50 Microcytosis SLIGHT 06/22/19 03:50 Tear Drop Cells SLIGHT 06/21/19 00:31 Ovalocytes SLIGHT 06/22/19 03:50 [place] Cells SLIGHT 06/22/19 03:50 Acanthocytes (Spur) 4+ 06/14/19 12:03 Schistocytes SLIGHT 06/22/19 03:50 ESR 46 mm/hr (0-30) H 06/17/19 17:20 Retic Count (auto) 1.52 % (0.66-2.85) 06/17/19 06:45 PT 13.6 SEC (11.4-15.4) 06/14/19 12:03 INR 1.04 06/14/19 12:03 APTT 27.6 SEC (23.5-35.8) 06/23/19 22:18 Carbonic Acid 1.10 mmol/L (1.05-1.35) 06/25/19 04:23 HCO3/H2CO3 Ratio 13:1 06/25/19 04:23 ABG pH 7.21 (7.35-7.45) L 06/25/19 04:23 ABG pCO2 36.4 mmHg (35-45) 06/25/19 04:23 ABG pO2 57.2 mmHg (80-100) L 06/25/19 04:23 ABG HCO3 14.3 mmol/L (20-24) L 06/25/19 04:23 ABG Total CO2 15.4 mmol/L (21-25) L 06/25/19 04:23 ABG O2 Saturation 84.1 % (94-98) L 06/25/19 04:23 ABG Base Excess -12.5 mmol/L 06/25/19 04:23 VBG pH 7.35 (7.30-7.42) 06/14/19 12:03 VBG pCO2 42.8 mmHg (35-63) 06/14/19 12:03 VBG HCO3 22.8 mmol/L (20-32) 06/14/19 12:03 VBG Base Excess -2.7 mmol/L 06/14/19 12:03 FiO2 65% 06/25/19 04:23 Sodium 131.6 mmol/L (137-145) L 06/25/19 04:15 Potassium 6.2 mmol/L (3.6-5.0) H* 06/25/19 04:15 Chloride 93 mmol/L (98-107) L 06/25/19 04:15 Carbon Dioxide 13 mmol/L (22-30) L 06/25/19 04:15 Anion Gap 26 (5-19) H 06/25/19 04:15 BUN 144 mg/dL (7-20) H 06/25/19 04:15 Creatinine 7.34 mg/dL (0.52-1.25) H 06/25/19 04:15 Est GFR ( Amer) 7 (>60) L 06/25/19 04:15 Est GFR (MDRD) Non-Af 6 (>60) L 06/25/19 04:15 Glucose 73 mg/dL (75-110) L 06/25/19 04:15 POC Glucose 85 mg/dL (70-110) 06/25/19 11:46 Lactic Acid 1.3 mmol/L (0.7-2.1) 06/22/19 04:30 Calcium 6.8 mg/dL (8.4-10.2) L* 06/25/19 04:15 Phosphorus 4.4 mg/dL (2.5-4.5) 06/21/19 03:55 Magnesium 2.5 mg/dL (1.6-2.3) H 06/21/19 03:55 Iron 57.6 ug/dL (37-170) 06/17/19 06:45 TIBC 265 ug/dL (250-450) 06/17/19 06:45 % Saturation 22 % 06/17/19 06:45 Ferritin 757.00 ng/mL (11.1-264.0) H 06/17/19 06:45 Total Bilirubin 1.0 mg/dL (0.2-1.3) 06/25/19 04:15 Direct Bilirubin 1.0 mg/dL (0.0-0.4) H 06/25/19 04:15 Neonat Total Bilirubin Not Reportable 06/25/19 04:15 Neonat Direct Bilirubin Not Reportable 06/25/19 04:15 Neonat Indirect Bili Not Reportable 06/25/19 04:15 AST 51 U/L (14-36) H 06/25/19 04:15 ALT 19 U/L (<35) 06/25/19 04:15 Alkaline Phosphatase 101 U/L (38-126) 06/25/19 04:15 Troponin I 0.013 ng/mL 06/14/19 12:03 NT-Pro-B Natriuret Pep 00090 pg/mL (<125) H 06/23/19 05:22 Total Protein 5.7 g/dL (6.3-8.2) L 06/25/19 04:15 Albumin 2.7 g/dL (3.5-5.0) L 06/25/19 04:15 Triglycerides 126 mg/dL (<150) 06/18/19 04:15 Vitamin B12 834.0 pg/mL (239-931) 06/17/19 06:45 Folate 12.90 ng/mL (>2.76) 06/17/19 06:45 Urine Color BOBY 06/21/19 03:53 Urine Appearance CLOUDY 06/21/19 03:53 Urine pH 5.0 (5.0-9.0) 06/21/19 03:53 Ur Specific [place] 1.018 06/21/19 03:53 Urine Protein 100 mg/dL (NEGATIVE) H 06/21/19 03:53 Urine Glucose (UA) 50 mg/dL (NEGATIVE) H 06/21/19 03:53 Urine Ketones TRACE mg/dL (NEGATIVE) H 06/21/19 03:53 Urine Blood LARGE (NEGATIVE) H 06/21/19 03:53 Urine Nitrite NEGATIVE (NEGATIVE) 06/21/19 03:53 Urine Nitrite (Reflex) NEGATIVE (NEGATIVE) 06/15/19 20:55 Urine Bilirubin NEGATIVE (NEGATIVE) 06/21/19 03:53 Urine Urobilinogen NEGATIVE mg/dL (<2.0) 06/21/19 03:53 Ur Leukocyte Esterase MODERATE (NEGATIVE) H 06/21/19 03:53 Leukocyte Esterase Rfl TRACE (NEGATIVE) H 06/15/19 20:55 Urine WBC (Auto) 37 /HPF 06/21/19 03:53 Urine RBC (Auto) >182 /HPF 06/21/19 03:53 Urine Bacteria (Auto) 2+ /HPF 06/21/19 03:53 Urine WBC (Reflex) 6 /HPF 06/15/19 20:55 Urine WBC Clumps FEW /HPF 06/21/19 03:53 Squamous Epi Cells Auto 2 /HPF 06/21/19 03:53 U Non-Squamous Epis Auto 1 /HPF 06/21/19 03:53 Urine Mucus (Auto) FEW /LPF 06/21/19 03:53 Urine Creatinine 94.5 mg/dL (15-278) 06/21/19 03:53 Urine Sodium 72 mmol/L (30-90) 06/21/19 03:53 Urine Ascorbic Acid NEGATIVE (NEGATIVE) 06/21/19 03:53 Urine Opiates Screen NEGATIVE 06/15/19 20:55 Urine Methadone Screen UNCONFIRMED POSITIVE 06/15/19 20:55 Ur Barbiturates Screen NEGATIVE 06/15/19 20:55 Ur Phencyclidine Scrn NEGATIVE 06/15/19 20:55 Ur Amphetamines Screen NEGATIVE 06/15/19 20:55 U Benzodiazepines Scrn NEGATIVE 06/15/19 20:55 Urine Cocaine Screen NEGATIVE 06/15/19 20:55 U Marijuana (THC) Screen NEGATIVE 06/15/19 20:55 Hepatitis A IgM Ab Negative (Negative) 06/22/19 07:00 Hep Bs Antigen Negative (Negative) 06/22/19 07:00 Hep Bs Antigen Negative (Negative) 06/22/19 07:00 Hep Bs Antibody, Quant <3.1 mIU/mL (Immunity>9) L 06/22/19 07:00 Hep B Core IgM Ab Negative (Negative) 06/22/19 07:00 Hepatitis C Antibody <0.1 s/co ratio (0.0-0.9) 06/22/19 07:00 Hepatitis C (SHOSHANA) <0.1 s/co ratio (0.0-0.9) 06/22/19 07:00 Hep C Verif Com 1 Comment (.) 06/22/19 07:00 Influenza A (Rapid) NEGATIVE (NEGATIVE) 06/14/19 12:03 Influenza B (Rapid) NEGATIVE (NEGATIVE) 06/14/19 12:03 Blood Type O POSITIVE 06/20/19 13:58 Antibody Screen NEGATIVE 06/20/19 13:58 Crossmatch See Detail 06/20/19 13:58 06/14/19 06/17/19 06/18/19 12:03 17:20 17:18 Troponin I 0.013 NT-Pro-B Natriuret Pep 228 H 3340 H 52807 H 06/23/19 05:22 Troponin I NT-Pro-B Natriuret Pep 02463 H Impressions: Chest X-Ray 06/14/19 00:00 IMPRESSION: Diffuse bilateral airspace disease right greater than left worrisome for pneumonia. Asymmetric pulmonary edema could mimic this appearance Chest/Abdomen CTA 06/15/19 00:00 IMPRESSION: 1. Multifocal consolidation and ground-glass opacities, greatest within the bilateral lower lobes suggestive of multifocal pneumonia. No significant effusion. 2. No pulmonary embolus. Chest X-Ray 06/17/19 09:04 IMPRESSION: Bilateral pneumonia. No significant change. Chest X-Ray 06/18/19 00:00 IMPRESSION: Unchanged radiographic appearance of the chest. Chest X-Ray 06/18/19 14:17 IMPRESSION: Tubes and lines as above. Otherwise unchanged radiographic appearance of the chest. KUB X-Ray 06/18/19 14:18 IMPRESSION: The tip of the enteric tube projects within the gastric antrum. Chest X-Ray 06/19/19 00:00 IMPRESSION: 1. Significantly improved aeration since yesterday afternoon, with mild residual interstitial edema Chest X-Ray 06/19/19 10:31 IMPRESSION: EXTENSIVE SUBCUTANEOUS EMPHYSEMA. OTHERWISE NO CHANGE. Chest X-Ray 06/20/19 06:00 IMPRESSION: Extensive subcutaneous gas, stable. Patchy airspace disease, greatest within the left lower lobe. Chest X-Ray 06/21/19 00:00 IMPRESSION: 1. Left internal jugular catheter placement with no pneumothorax. 2. Borderline heart size. Cannot exclude pulmonary edema. 3. Cannot exclude airspace disease in the left lower lobe, pneumonia versus atelectasis. 4. Decrease in the subcutaneous free air. Chest X-Ray 06/23/19 00:00 IMPRESSION: NO SIGNIFICANT CHANGE IN APPEARANCE OF THE CHEST. Chest X-Ray 06/24/19 12:03 IMPRESSION: NO SIGNIFICANT CHANGE IN APPEARANCE OF THE CHEST. Chest X-Ray 06/25/19 11:00 IMPRESSION: No significant interval change. Bilateral airspace disease. Subcutaneous emphysema. Plan Critical Time: 50 Level of Care: ICU - Transferred to another ICU Stroke Is this a Stroke Patient?: No Acute Heart Failure - Is this a Heart Failure Patient?: No Follow-up Appointment scheduled within 7 days?: No, document reason - Transferred
[2019-06-25 15:04] VITALS: BP 135/62
[2019-06-25] MEDS ORDERED: CEFEPIME HCL 0.5 GM in NORMAL SALINE 25 ML IV SCH (18:00)
[2019-06-26] MEDS ORDERED: METHYLPREDNISOLONE INJ 125 MG/2 ML SDV IV SCH (06:00)
[2019-06-26] MEDS ORDERED: ENOXAPARIN SODIUM INJ 30 MG/0.3 ML DISP.SYRIN SUBCUT SCH (10:00)
== END 2019-06-25 15:05 | disposition short-term general hospital (02) | DRG 207 ==
LOC: ER 11:51 → EH 13:55 → 3N 06-15 12:47 → ICU 06-17 14:59
PROVIDERS: ADMIT Internal Medicine Critical Care Medicine; ATTEND Internal Medicine Critical Care Medicine
PROC: 5A1955Z Respiratory Ventilation, Greater than 96 Consecutive Hours (ICD-10-PCS; principal; 2019-06-18)
PROC: 0BH17EZ Insertion of Endotracheal Airway into Trachea, Via Natural or Artificial Opening (ICD-10-PCS; 2019-06-18)
PROC: 30233N1 Transfusion of Nonautologous Red Blood Cells into Peripheral Vein, Percutaneous Approach (ICD-10-PCS; 2019-06-20)
PROC: 02HV33Z Insertion of Infusion Device into Superior Vena Cava, Percutaneous Approach (ICD-10-PCS; 2019-06-21)
PROC: 5A1D70Z Performance of Urinary Filtration, Intermittent, Less than 6 Hours Per Day (ICD-10-PCS; 2019-06-22)
DX: J18.9 Pneumonia, unspecified organism (principal); N17.0 Acute kidney failure with tubular necrosis; I50.33 Acute on chronic diastolic (congestive) heart failure; J96.01 Acute respiratory failure with hypoxia; E87.2 Acidosis; Z68.42 Body mass index [BMI] 45.0-49.9, adult; J98.2 Interstitial emphysema; I95.3 Hypotension of hemodialysis; I11.0 Hypertensive heart disease with heart failure; G89.29 Other chronic pain; F32.9 Major depressive disorder, single episode, unspecified; D50.9 Iron deficiency anemia, unspecified; E87.6 Hypokalemia; E87.70 Fluid overload, unspecified; E66.01 Morbid (severe) obesity due to excess calories; F17.200 Nicotine dependence, unspecified, uncomplicated; Z79.891 Long term (current) use of opiate analgesic; Z87.820 Personal history of traumatic brain injury
CPT/HCPCS: 31500; 36415; 36430; 36556; 36600; 71045; 71260; 71275; 74018; 80048; 80053; 80074; 80307; 81001; 82570; 82607; 82728; 82746; 82803; 82962; 83540; 83550; 83605; 83735; 83880; 84100; 84300; 84478; 84484; 85025; 85027; 85045; 85610; 85652; 85730; 86317; 86803; 86804; 86850; 86900; 86901; 86920; 87040; 87070; 87086; 87205; 87340; 87804; 93005; 93010; 93306; 94002; 94003; 94640; 94660; 94762; 96365; 96367; 96375; 99233; 99239; 99285; 99291; J0610; J0330; J0456; J0692; J0696; J1644; J1650; J1815; J1940; J2060; J2250; J2370; J2405; J2704; J2765; J2920; J2930; J3010; J3480; J3490; J7030; J7042; J7050; J7060; J7120; J7620; P9016; P9047; S0028